=== PATIENT | female | born 1940 | race Caucasian/White ===

== ENCOUNTER 2018-10-09 12:17 | Outpatient (CLI) | payer MEDICARE, MEDICAID, SELFPAY ==
[2018-10-09 13:32] LABS: HCT 35.5 % (36.0-46.0); HGB 10.8 g/dL (12.0-15.5); Mean Corp. HGB Concentration 30.4 g/dL (32.0-36.0); Mean Corpuscular Hemoglobin 26.3 pg (27.0-33.0); Mean Corpuscular Volume 86.4 fL (80-95); Platelet Count 365 x1000/uL (130-400); RBC 4.11 m/cumm (4.00-5.20); RBC Distribution Width 13.9 % (11.7-14.6); White Blood Cell Count 6.82 k/cumm (4.4-10.8)
[2018-10-09 14:54] LABS: ALT 14 U/L (12-78); AST 10 U/L (15-37); Albumin 3.3 g/dL (3.4-5.0); Alkaline Phosphatase 109 U/L (46-116); Anion Gap 8.5 mmol/L (3-11); BUN 14 mg/dL (7-18); Bilirubin, Total 0.5 mg/dL (0.2-1.0); CO2 28.5 mmol/L (21.0-32.0); CREATININE 1.34 mg/dL (0.55-1.02); Calcium 8.3 mg/dL (8.5-10.1); Chloride 100 mmol/L (98-107); Estimated GFR 38.35 (mL/min/1.73m2); Glucose 97 mg/dL (70-100); Potassium 4.2 mmol/L (3.5-5.1); Sodium 137 mmol/L (136-145); TSH (W/Ref FT4) 0.67 uIU/mL (0.358-3.74); Total Protein 6.6 g/dL (6.4-8.2)
== END 2018-10-09 12:37 ==
PROVIDERS: PCP Family Medicine; Visit Provider Family Medicine
DX: E03.9 Hypothyroidism, unspecified (principal); R63.4 Abnormal weight loss
CPT/HCPCS: 80053; 85027; 84443

== ENCOUNTER 2018-10-11 16:14 | Observation (INO) | payer MEDICARE, OTHER, MEDICAID, SELFPAY ==
[2018-10-11 16:14] VITALS: PULSE 68; RESP 18; TEMP 36.8; O2SAT 98
[2018-10-11 16:29] VITALS: BP 164/92
--- NOTE | 2018-10-11 16:31 | DI.RAD_ITS ---
SYMPTOM/DIAGNOSIS: RT KNEE PAIN RIGHT KNEE: No fracture is identified. There are severe degenerative changes of the patello-femoral joint, with prominent periarticular spurring and severe joint space narrowing. There is a supra patellar effusion. The femoral tibial joints are well maintained and show mild periarticular spurring. There is soft tissue swelling seen anteriorly. IMPRESSION: Severe patello-femoral degenerative changes.
--- NOTE | 2018-10-11 16:32 | W.ED.GENAD ---
Discharge Plan Disposition Patient Disposition: [facility] INPATIENT Condition: Stable Discharge Details Chief Complaint: Orthopedic Clinical Impression: Palliative care patient, Dementia, Hypomagnesemia, Arthritis of knee, right Admit Date/Time: 10/11/18 18:46 Admit Provider: José Miguel Zazueta Attending Provider: José Miguel Zazueta Primary Care Provider: Mel Cantu ED Provider: Yan Benavidez Discharge Data Discharge Date/Time-TO BE ENTERED AT DEPARTURE: 10/11/18 19:31 Medical Decision Making 78-year-old female presents from home via EMS. She has fairly advanced dementia and recent discussions of placement. Her acts as her primary caregiver and historian today. He states that she has had a fairly dramatic decline over proxy 1 month. They have a two-story home and she lives on the main floor, sleeping in a recliner. She has had increasing falls and ambulance calls for lift assist. She has COLST form noting DNR/DNI. Today she had atraumatic right knee pain. states she has had intermittent arthralgias in the past. No recent fall, fever, cough. She did recently start mirtazapine at bedtime. She is afebrile and well-appearing. Medical work-up including screening examination, laboratory, x-ray of knee. The diagnostic studies reveal no significant change to CBC, creatinine slightly increased to 1.5. Calcium slightly low and magnesium 1.5. Urinalysis with trace leuk esterase, otherwise unremarkable. X-ray with marked joint space narrowing at the patellofemoral joint. Case reviewed and discussed with care management. Will admit as observation to medicine. Patient will benefit from magnesium supplementation and PT/OT evaluation for what is likely chronic right knee arthralgia. HPI General Mode of arrival: EMS. Date/Time Provider Initiated Documentation: 10/11/18 16:47. Limitations to Documentation: no limitations. Information obtained by: patient, family and EMS. History of Present Illness 78 year old F presents to the emergency department with the chief complaint of Dementia and right knee pain, described as moderate, Quality is described as dull and constant, and is localized to the right and lower extremity. Patient reports no radiation. Patient started experiencing this day(s) and it has been intermittent. Rest improves symptom(s), Movement worsens symptoms . Patient notes confusion. Patient did receive the following treatments prior to arrival, other (Tylenol) Related Data Home Medications Medication Instructions Recorded Confirmed Prilosec OTC 20 mg PO DAILY 08/29/13 10/11/18 acetaminophen [Mapap Extra 500 mg PO TID 06/27/17 10/11/18 Strength] levothyroxine 50 mcg tablet 88 mcg PO DAILY tab 02/06/18 10/11/18 citalopram 20 mg tablet 20 mg PO DAILY #90 tab-cap 03/29/18 10/11/18 mirtazapine 7.5 mg tablet 7.5 mg PO QHS #90 tab 10/09/18 10/11/18 Previous Rx's Medication Instructions Recorded citalopram 20 mg tablet 20 mg PO DAILY #90 tab-cap 03/29/18 mirtazapine 7.5 mg tablet 7.5 mg PO QHS #90 tab 10/09/18 Allergies Allergy/AdvReac Type Severity Reaction Status Date / Time codeine Allergy Unknown Unverified 10/27/17 11:20 lisinopril Allergy Unknown Unverified 10/27/17 11:20 NSAIDS (Non-Steroidal Allergy Unknown Unverified 10/27/17 11:20 Anti-Inflamma sertraline Allergy Unknown Unverified 10/27/17 11:20 simvastatin AdvReac Unknown Unverified 10/27/17 11:20 hydrocodone-acetominophen AdvReac Unknown Uncoded 10/27/17 11:20 General Stated Complaint: Orthopedic MANOJ: 4 Review of Systems Review of Systems Unobtainable due to mental status [facility] Surgical History Arthroplasty (08/17/14) Cholecystectomy Colectomy (11/28/01) Lobectomy (04/06/09) colonoscopy (02/18/08) colonoscopy (10/03/12) colonoscopy (10/07/13) egd with dilitation (05/18/11) thyroid nodule biopsy (10/07/13) Social History Smoking/Tobacco Use Status: Former Tobacco Use Drug use: Never Substance use type: does not use Household members: spouse Housing: house Do you feel safe in your relationship?: Yes Exam Narrative Exam Narrative: GEN: awake, alert, interactive. Pleasant, well groomed, interactive. HEAD: Normocephalic, atraumatic ENT: Mucous membranes moist, oropharynx unremarkable, External ear exam unremarkable EYES: PERRL, EOMI NECK: Full ROM, no DANIELITO, no menigismus CHEST/RESP: Nontender, clear to auscultation bilateral, no wheeze/rhonchi/rales CARDIOVASCULAR: RRR, no murmur, rub devon. 2+ Rad pulse bilateral ABDOMEN: Soft, nontender, no mass. +Bowel sounds EXT: Full ROM, no edema, no rash. Range of motion on the right is somewhat limited by pain. She has pain with active and passive right knee flexion. It is not warm or erythematous, no asymmetry. Back exam: No tenderness, step-off, deformity Neuro: Grossly normal neurologic exam, conversant, interactive. She is not oriented to person or place Psych: Speech fluent, thoughts tangential and somewhat bizarre at times, affect normal Course Vital Signs Temperature 36.8 C 10/11/18 16:14 Pulse 68 10/11/18 16:14 Respiratory Rate 18 10/11/18 16:14 Pulse Oximetry 98 10/11/18 16:14 Temperature 36.8 C 10/11/18 16:14 Temperature Source Temporal Artery Scan 10/11/18 16:14 Pulse 68 10/11/18 16:14 Respiratory Rate 18 10/11/18 16:14 Respiratory Effort Non-Labored 10/11/18 16:21 Blood Pressure 164/92 H 10/11/18 16:29 Pulse Oximetry 98 10/11/18 16:14 Oxygen Delivery Method Room Air 10/11/18 16:14 Oxygen Flow Rate 0 10/11/18 16:14
--- NOTE | 2018-10-11 16:36 | ED.GENADUL_ITS ---
Discharge Plan Disposition Patient Disposition: [facility] INPATIENT Condition: Stable Discharge Details Chief Complaint: Orthopedic Clinical Impression: Palliative care patient, Dementia, Hypomagnesemia, Arthritis of knee, right Admit Date/Time: 10/11/18 18:46 Admit Provider: José Miguel Zazueta Attending Provider: José Miguel Zazueta Primary Care Provider: Mel Cantu ED Provider: Yan Benavidez Discharge Data Discharge Date/Time-TO BE ENTERED AT DEPARTURE: 10/11/18 19:31 Medical Decision Making 78-year-old female presents from home via EMS. She has fairly advanced dementia and recent discussions of placement. Her acts as her primary caregiver and historian today. He states that she has had a fairly dramatic decline over proxy 1 month. They have a two-story home and she lives on the main floor, sleeping in a recliner. She has had increasing falls and ambulance calls for lift assist. She has COLST form noting DNR/DNI. Today she had atraumatic right knee pain. states she has had intermittent arthralgias in the past. No recent fall, fever, cough. She did recently start mirtazapine at bedtime. She is afebrile and well-appearing. Medical work-up including screening examination, laboratory, x-ray of knee. The diagnostic studies reveal no significant change to CBC, creatinine slightly increased to 1.5. Calcium slightly low and magnesium 1.5. Urinalysis with trace leuk esterase, otherwise unremarkable. X-ray with marked joint space narrowing at the patellofemoral joint. Case reviewed and discussed with care management. Will admit as observation to medicine. Patient will benefit from magnesium supplementation and PT/OT evaluation for what is likely chronic right knee arthralgia. HPI General Mode of arrival: EMS . Date/Time Provider Initiated Documentation: 10/11/18 16:47 . Limitations to Documentation: no limitations . Information obtained by: patient, family and EMS . History of Present Illness 78 year old F presents to the emergency department with the chief complaint of Dementia and right knee pain, described as moderate, Quality is described as dull and constant, and is localized to the right and lower extremity. Patient reports no radiation. Patient started experiencing this day(s) and it has been intermittent. Rest improves symptom(s), Movement worsens symptoms . Patient notes confusion. Patient did receive the following treatments prior to arrival, other (Tylenol) Related Data Home Medications Medication Instructions Recorded Confirmed Prilosec OTC 20 mg PO DAILY 08/29/13 10/11/18 acetaminophen [Mapap Extra 500 mg PO TID 06/27/17 10/11/18 Strength] levothyroxine 50 mcg tablet 88 mcg PO DAILY tab 02/06/18 10/11/18 citalopram 20 mg tablet 20 mg PO DAILY #90 tab-cap 03/29/18 10/11/18 mirtazapine 7.5 mg tablet 7.5 mg PO QHS #90 tab 10/09/18 10/11/18 Previous Rx's Medication Instructions Recorded citalopram 20 mg tablet 20 mg PO DAILY #90 tab-cap 03/29/18 mirtazapine 7.5 mg tablet 7.5 mg PO QHS #90 tab 10/09/18 Allergies Allergy/AdvReac Type Severity Reaction Status Date / Time codeine Allergy Unknown Unverified 10/27/17 11:20 lisinopril Allergy Unknown Unverified 10/27/17 11:20 NSAIDS (Non-Steroidal Allergy Unknown Unverified 10/27/17 11:20 Anti-Inflamma sertraline Allergy Unknown Unverified 10/27/17 11:20 simvastatin AdvReac Unknown Unverified 10/27/17 11:20 hydrocodone-acetominophen AdvReac Unknown Uncoded 10/27/17 11:20 General Stated Complaint: Orthopedic MANOJ: 4 Review of Systems Review of Systems Unobtainable due to mental status [facility] Surgical History Arthroplasty (08/17/14) Cholecystectomy Colectomy (11/28/01) Lobectomy (04/06/09) colonoscopy (02/18/08) colonoscopy (10/03/12) colonoscopy (10/07/13) egd with dilitation (05/18/11) thyroid nodule biopsy (10/07/13) Social History Smoking/Tobacco Use Status: Former Tobacco Use Drug use: Never Substance use type: does not use Household members: spouse Housing: house Do you feel safe in your relationship?: Yes Exam Narrative Exam Narrative: GEN: awake, alert, interactive. Pleasant, well groomed, interactive. HEAD: Normocephalic, atraumatic ENT: Mucous membranes moist, oropharynx unremarkable, External ear exam unremarkable EYES: PERRL, EOMI NECK: Full ROM, no DANIELITO, no menigismus CHEST/RESP: Nontender, clear to auscultation bilateral, no wheeze/rhonchi/rales CARDIOVASCULAR: RRR, no murmur, rub devon. 2+ Rad pulse bilateral ABDOMEN: Soft, nontender, no mass. +Bowel sounds EXT: Full ROM, no edema, no rash. Range of motion on the right is somewhat limited by pain. She has pain with active and passive right knee flexion. It is not warm or erythematous, no asymmetry. Back exam: No tenderness, step-off, deformity Neuro: Grossly normal neurologic exam, conversant, interactive. She is not oriented to person or place Psych: Speech fluent, thoughts tangential and somewhat bizarre at times, affect normal Course Vital Signs Temperature 36.8 C 10/11/18 16:14 Pulse 68 10/11/18 16:14 Respiratory Rate 18 10/11/18 16:14 Pulse Oximetry 98 10/11/18 16:14 Temperature 36.8 C 10/11/18 16:14 Temperature Source Temporal Artery Scan 10/11/18 16:14 Pulse 68 10/11/18 16:14 Respiratory Rate 18 10/11/18 16:14 Respiratory Effort Non-Labored 10/11/18 16:21 Blood Pressure 164/92 H 10/11/18 16:29 Pulse Oximetry 98 10/11/18 16:14 Oxygen Delivery Method Room Air 10/11/18 16:14 Oxygen Flow Rate 0 10/11/18 16:14
[2018-10-11] MEDS: Acetaminophen 500 MG TAB 1000 MG PO (17:06)
[2018-10-11 17:07] LABS: Abs Immature Grans 0.01 k/cumm (0.0-0.09); Absolute Basophil Count 0.05 k/cumm (0.0-0.2); Absolute Eosinophil Count 0.12 k/cumm (0.0-0.7); Absolute Lymphocyte Count 0.99 k/cumm (1.2-3.4); Absolute Monocyte Count 0.59 k/cumm (0.11-0.7); Absolute Neutrophil Count 6.64 k/cumm (1.2-6.7); Basophils % 0.6; Eosinophils % 1.4; HCT 35.3 % (36.0-46.0); HGB 11.1 g/dL (12.0-15.5); Immature Grans % 0.1; Lymphocytes % 11.8; Mean Corp. HGB Concentration 31.4 g/dL (32.0-36.0); Mean Corpuscular Hemoglobin 27.1 pg (27.0-33.0); Mean Corpuscular Volume 86.1 fL (80-95); Mean Platelet Volume 9.6 fL (8.0-11.0); Neutrophils % 79.1; Platelet Count 375 x1000/uL (130-400); RBC Distribution Width 13.7 % (11.7-14.6)
[2018-10-11 17:20] LABS: ALT 13 U/L (12-78); AST 10 U/L (15-37); Alkaline Phosphatase 108 U/L (46-116); Anion Gap 7.4 mmol/L (3-11); BUN 12 mg/dL (7-18); Bilirubin, Total 0.6 mg/dL (0.2-1.0); CO2 29.6 mmol/L (21.0-32.0); CREATININE 1.52 mg/dL (0.55-1.02); Calcium 7.9 mg/dL (8.5-10.1); Chloride 99 mmol/L (98-107); Estimated GFR 33.16 (mL/min/1.73m2); Glucose 109 mg/dL (70-100); Magnesium 1.5 mg/dL (1.8-2.4); Potassium 3.6 mmol/L (3.5-5.1); Sodium 136 mmol/L (136-145); Total Protein 6.8 g/dL (6.4-8.2)
[2018-10-11 17:26] LABS: Bilirubin Negative (Negative); Blood Negative (Negative); Clarity Clear; Glucose Negative (Negative); Ketones Negative (Negative); Leukocyte Esterase Trace (Negative); Nitrite Negative (Negative); Urobilinogen 0.2 EU/dL (Up TO 0.2)
[2018-10-11 17:32] LABS: Bacteria Rare HPF (Negative); Crystals Negative HPF (Negative); Epithelial Cells Rare HPF (Negative); Other Cells Negative (Negative); RBC 0-2 (0-2); WBC 0-2 HPF (0-5)
[2018-10-11 17:33] LABS: C & S Indicated? No; Casts Negative LPF (Negative); Mucus Negative (Negative)
--- NOTE | 2018-10-11 17:35 | DI.VRAD_ITS ---
EXAM: XR Right Knee EXAM DATE/TIME: 10/11/2018 4:32 PM CLINICAL HISTORY: 78 years old, female; Right; Patient HX: R knee pain TECHNIQUE: Imaging protocol: XR Right knee. Views: 4 or more views. COMPARISON: No relevant prior studies available. FINDINGS: Bones/joints: Marked joint space narrowing in the patellofemoral joint. Essentially [id number]. Osteophyte formation in the superior pole of the patella Osteophyte formation in the intercondylar eminence Soft tissues: Soft tissue swelling over the anterior aspect of the knee. IMPRESSION: 1. Marked joint space narrowing in the patellofemoral joint. Essentially [id number]. 2. Soft tissue swelling over the anterior aspect of the knee. Dictated and Authenticated by: Daisy Jacobson MD. Ordering:SULTANA Heredia MD
[2018-10-11] MEDS: MAGNESIUM SULFATE 1 GM/100 ML BAG IVPB (17:37)
--- NOTE | 2018-10-11 18:35 | W.PM.HP.N ---
Date of service: 10/11/18 Time of Service: 18:35 Assessment and Plan (1) Dementia: Current visit: Yes Status: Chronic Advancing dementia, will need intermediate manager placement. Chronic knee pain secondary to DJD, will give prn APAP and consult PT to asssist with ambulation. History of Present Illness Chief Complaint: inability to manage at home Narrative: 78 female with advancing dementia. Here with increasing falls at home, and husban'ds inability to manage. Patient did complain of knee pain, film showDJD, no fracture; magnesimu 1.5 noted, geting replacemnt. Admitted for further management and possible skilled nursing placement. Patient has no complaints at this time. Review of Systems Review of Systems Unobtainable due to mental condition [facility] Surgical History Arthroplasty (08/17/14) Cholecystectomy Colectomy (11/28/01) Lobectomy (04/06/09) colonoscopy (02/18/08) colonoscopy (10/03/12) colonoscopy (10/07/13) egd with dilitation (05/18/11) thyroid nodule biopsy (10/07/13) Social History Smoking/Tobacco Use Status: Former Tobacco Use Drug use: Never Substance use type: does not use Household members: spouse Housing: house Do you feel safe in your relationship?: Yes Meds Home Medications Medication Instructions Recorded Confirmed Type Prilosec OTC 20 mg PO DAILY 08/29/13 10/09/18 History acetaminophen [Mapap Extra 500 mg PO TID 06/27/17 10/09/18 History Strength] levothyroxine 50 mcg tablet 88 mcg PO DAILY tab 02/06/18 10/09/18 History citalopram 20 mg tablet 20 mg PO DAILY #90 tab-cap 03/29/18 10/09/18 Rx mirtazapine 7.5 mg tablet 7.5 mg PO QHS #90 tab 10/09/18 10/09/18 Rx Allergies Allergy/AdvReac Type Severity Reaction Status Date / Time codeine Allergy Unknown Unverified 10/27/17 11:20 lisinopril Allergy Unknown Unverified 10/27/17 11:20 NSAIDS (Non-Steroidal Allergy Unknown Unverified 10/27/17 11:20 Anti-Inflamma sertraline Allergy Unknown Unverified 10/27/17 11:20 simvastatin AdvReac Unknown Unverified 10/27/17 11:20 hydrocodone-acetominophen AdvReac Unknown Uncoded 10/27/17 11:20 Exam Narrative Exam Narrative: 164/92, 68, 18, 36.8. HEENT atraumatic, neck supple, lungs clear, heart RRR, abdomen soft nt, pelvic/rectal deferred, extr trace pedal edema; neuro: oriented x1, moves all 4s Results Labs : 10/11/18 16:58 10/11/18 16:58 Laboratory Results - last 24 hr 10/11/18 10/11/18 10/11/18 16:58 16:58 17:15 WBC 8.40 RBC 4.10 Hgb 11.1 L Hct 35.3 L MCV 86.1 MCH 27.1 MCHC 31.4 L RDW 13.7 Plt Count 375 MPV 9.6 Immature Gran % 0.1 Neutrophils % 79.1 Lymphocytes % 11.8 Monocytes % 7.0 Eosinophils % 1.4 Basophils % 0.6 Absolute Neutrophils 6.64 Absolute Lymphocytes 0.99 L Absolute Monocytes 0.59 Absolute Eosinophils 0.12 Absolute Basophils 0.05 Sodium 136 Potassium 3.6 Chloride 99 Carbon Dioxide 29.6 Anion Gap 7.4 BUN 12 Creatinine 1.52 H Estimated GFR/1.73 m2 33.16 Glucose 109 H Calcium 7.9 L Magnesium 1.5 L Total Bilirubin 0.6 AST 10 L ALT 13 Alkaline Phosphatase 108 Total Protein 6.8 Albumin 3.0 L Urine Color Yellow Urine Clarity Clear Urine pH 7.0 Ur Specific [place] 1.010 Urine Protein Negative Urine Ketones Negative Urine Blood Negative Urine Nitrite Negative Urine Bilirubin Negative Urine Urobilinogen 0.2 Ur Leukocyte Esterase Trace H Urine RBC 0-2 Urine WBC 0-2 Ur Epithelial Cells Rare Urine Crystals Negative Urine Bacteria Rare Urine Casts Negative Urine Mucus Negative Urine Other Negative Ur Culture Indicated? No Urine Glucose Negative Last Vital Signs Temp 36.8 C 10/11/18 16:14 Pulse 68 10/11/18 16:14 Resp 18 10/11/18 16:14 BP 164/92 H 10/11/18 16:29 Pulse Ox 98 10/11/18 16:14
--- NOTE | 2018-10-11 18:45 | HPE_ITS ---
Date of service: 10/11/18 Time of Service: 18:35 Assessment and Plan (1) Dementia: Current visit: Yes Status: Chronic Advancing dementia, will need terminal clerk placement. Chronic knee pain secondary to DJD, will give prn APAP and consult PT to asssist with ambulation. History of Present Illness Chief Complaint: inability to manage at home Narrative: 78 female with advancing dementia. Here with increasing falls at home, and husban'ds inability to manage. Patient did complain of knee pain, film showDJD, no fracture; magnesimu 1.5 noted, geting replacemnt. Admitted for further management and possible skilled nursing placement. Patient has no complaints at this time. Review of Systems Review of Systems Unobtainable due to mental condition [facility] Surgical History Arthroplasty (08/17/14) Cholecystectomy Colectomy (11/28/01) Lobectomy (04/06/09) colonoscopy (02/18/08) colonoscopy (10/03/12) colonoscopy (10/07/13) egd with dilitation (05/18/11) thyroid nodule biopsy (10/07/13) Social History Smoking/Tobacco Use Status: Former Tobacco Use Drug use: Never Substance use type: does not use Household members: spouse Housing: house Do you feel safe in your relationship?: Yes Meds Home Medications Medication Instructions Recorded Confirmed Type Prilosec OTC 20 mg PO DAILY 08/29/13 10/09/18 History acetaminophen [Mapap Extra 500 mg PO TID 06/27/17 10/09/18 History Strength] levothyroxine 50 mcg tablet 88 mcg PO DAILY tab 02/06/18 10/09/18 History citalopram 20 mg tablet 20 mg PO DAILY #90 tab-cap 03/29/18 10/09/18 Rx mirtazapine 7.5 mg tablet 7.5 mg PO QHS #90 tab 10/09/18 10/09/18 Rx Allergies Allergy/AdvReac Type Severity Reaction Status Date / Time codeine Allergy Unknown Unverified 10/27/17 11:20 lisinopril Allergy Unknown Unverified 10/27/17 11:20 NSAIDS (Non-Steroidal Allergy Unknown Unverified 10/27/17 11:20 Anti-Inflamma sertraline Allergy Unknown Unverified 10/27/17 11:20 simvastatin AdvReac Unknown Unverified 10/27/17 11:20 hydrocodone-acetominophen AdvReac Unknown Uncoded 10/27/17 11:20 Exam Narrative Exam Narrative: 164/92, 68, 18, 36.8. HEENT atraumatic, neck supple, lungs clear, heart RRR, abdomen soft nt, pelvic/rectal deferred, extr trace pedal edema; neuro: oriented x1, moves all 4s Results Labs : 10/11/18 16:58 10/11/18 16:58 Laboratory Results - last 24 hr 10/11/18 10/11/18 10/11/18 16:58 16:58 17:15 WBC 8.40 RBC 4.10 Hgb 11.1 L Hct 35.3 L MCV 86.1 MCH 27.1 MCHC 31.4 L RDW 13.7 Plt Count 375 MPV 9.6 Immature Gran % 0.1 Neutrophils % 79.1 Lymphocytes % 11.8 Monocytes % 7.0 Eosinophils % 1.4 Basophils % 0.6 Absolute Neutrophils 6.64 Absolute Lymphocytes 0.99 L Absolute Monocytes 0.59 Absolute Eosinophils 0.12 Absolute Basophils 0.05 Sodium 136 Potassium 3.6 Chloride 99 Carbon Dioxide 29.6 Anion Gap 7.4 BUN 12 Creatinine 1.52 H Estimated GFR/1.73 m2 33.16 Glucose 109 H Calcium 7.9 L Magnesium 1.5 L Total Bilirubin 0.6 AST 10 L ALT 13 Alkaline Phosphatase 108 Total Protein 6.8 Albumin 3.0 L Urine Color Yellow Urine Clarity Clear Urine pH 7.0 Ur Specific [place] 1.010 Urine Protein Negative Urine Ketones Negative Urine Blood Negative Urine Nitrite Negative Urine Bilirubin Negative Urine Urobilinogen 0.2 Ur Leukocyte Esterase Trace H Urine RBC 0-2 Urine WBC 0-2 Ur Epithelial Cells Rare Urine Crystals Negative Urine Bacteria Rare Urine Casts Negative Urine Mucus Negative Urine Other Negative Ur Culture Indicated? No Urine Glucose Negative Last Vital Signs Temp 36.8 C 10/11/18 16:14 Pulse 68 10/11/18 16:14 Resp 18 10/11/18 16:14 BP 164/92 H 10/11/18 16:29 Pulse Ox 98 10/11/18 16:14
--- NOTE | 2018-10-11 19:21 | NUR.NOTE ---
Nursing Note:report given to ann
[2018-10-11 19:56] VITALS: BP 134/82; PULSE 69; RESP 16; TEMP 35.6; O2SAT 98
[2018-10-11 19:57] VITALS: BP 134/82; PULSE 69; RESP 16; TEMP 35.6; O2SAT 98
[2018-10-12] MEDS: Levothyroxine 50 MCG TAB 88 MCG PO (06:48)
[2018-10-12 07:37] VITALS: BP 155/82; PULSE 82; RESP 17; TEMP 36.4; O2SAT 98
[2018-10-12] MEDS: Acetaminophen 325 MG TAB 650 MG PO (09:25)
[2018-10-12] MEDS: Omeprazole 20 MG CAPCR PO (09:26)
[2018-10-12] MEDS: Citalopram 20 MG TAB PO (09:26)
[2018-10-12] MEDS: MAGNESIUM SULFATE 2 GM/50 ML BAG IVPB (13:17)
[2018-10-12] MEDS: Normal Saline 1,000 ML 75 ML IV (13:17)
--- NOTE | 2018-10-12 13:36 | PT.INIE ---
Date of service: 10/12/18 Time of Service: 10:15 PT Notes Inpatient Physical Therapy Evaluation Date: 10/12/2018 Referring Doctor: José Miguel Zazueta MD PT Orders: PT CONSULT: Ambulation, eval/treat Precautions: Standard/fall risk Patient Profile/Admitting Diagnosis: 78-year-old female with progressive dementia, with development of atraumatic right knee pain, requiring EMS transferred to ER on 10/11/2018 due to 's inability to assist her. Recent history of increased falls and multiple joint arthralgias. PMHX: Surgical History Arthroplasty (08/17/14) Cholecystectomy Colectomy (11/28/01) Lobectomy (04/06/09) colonoscopy (02/18/08) colonoscopy (10/03/12) colonoscopy (10/07/13) egd with dilitation (05/18/11) thyroid nodule biopsy (10/07/13) Per report, arthritis, progressive dementia. Obese. Social History/Home Situation: Lives in a private home with her , who is her main farm or ranch animal caretaker. He is now feeling overwhelmed and considering placement. Current Functional Limitations: Requires close supervision to contact-guard with functional ambulation and sit to stand transfers, needs constant reminders to utilize assistive device, and safe performance of all functional movements and transfers. Equipment Owned/DME: Walker and cane, has been admits that she is not good about using either due to her dementia. Subjective: Complains of right knee pain, but unable to understand the VAS so cannot rate this. reports that her falls are increasing, she is been sleeping on the main floor of her home in recliner for the past week, due to her choice, not necessarily due to her inability to descend the stairs. However since she is not been going up and down the stairs at their home, he is noted physical decline in her condition and increase in knee pain. Falls are occurring when she is attempting to get out of bed on her own, or when ambulating on uneven terrain in their yard. Objective: [] General Observation: Obese, looks older than stated age, sitting in recliner chair with legs elevated, ice on the right knee. Mental Status: Alert, oriented to person, confused by day and place. Easily confused. Pain: Right knee, patient unable to rate. Vital Signs: BP 155/82, 90% O2 on room air, 82 HR ROM: Right Upper Extremity: Grossly WNL Left Upper Extremity: Grossly WNL Right Lower Extremity: Right knee limited to 0 to 90 degrees limited by pain, otherwise grossly WNL Left Lower Extremity: Grossly WNL Strength: Right Upper Extremity: Grossly 4/5 Left Upper Extremity: Grossly 4/5 Right Lower Extremity: Hip flexion 3/5, knee flexion/extension 3+/5 with pain, DF 4/5 with pain, PF 4/5 Left Lower Extremity: Hip flexion 3/5, knee flexion/extension 4+/5, DF 4/5 no pain, PF 4/5 Sensation: Not assessed Bed Mobility/Transfers: Contact-guard x2 sit to stand at walker Contact-guard x2 sit to stand, and vice versa to toilet Gait: Contact-guard x2, RW, verbal cues required throughout for proper use of walker and to remember to use walker. Antalgic, with decreased stance R knee Balance: [] Static Sitting: Good Dynamic Sitting: Fair Static Standing: Poor Dynamic Standing: Poor Special Tests: Mobility Limitations Standardized Measure [facility] 6 clicks Basic Mobility Inpatient Short Form: Raw Score: [] Standardized Score: [] CMS Score: 57% disability CMS Modifier: [] Informed Consent/Education: Patient instructed in purpose of PT consult and plan of care. Assessment: Patient is a 78 year old female referred to physical therapy services with the diagnosis of R knee pain and subsequent gait deficits. Patient presents with clinical signs and symptoms consistent with progressive dementia and right knee OA exacerbation. It would not be unreasonable for orthopedic consultation of the right knee, in the event that injection may be appropriate, or other recommendations for pain control, in the setting that her symptoms do not resolve with time. Impairment level findings: Global weakness, but particularly of the right knee, mobility deficits of the right knee, gait antalgia, poor balance, and poor body awareness due to her dementia confusion. Impairments are contributing to the following functional limitations: AMPAC score of 50% disability, unsteady gait, pain with weightbearing, requires assist with transfers and ambulation, high risk of falls. Patient is assessed as a [] Low 14157 x Moderate 77061 [] High 27086 complexity based on the following: History: See comorbidities, progressive dementia Examination: See above impairments and functional limitations Presentation: Evolving Decision Making: Moderate, see [facility] above. Goals: Goals X1 week 1. Supine-Sit close supervision 2. Sit-Supine close supervision 3. Sit-Stand contact-guard 1, walker 4. Stand-Sit contact-guard 1, walker 5. Bed-Chair contact-guard 1, walker 6. Chair-Bed contact-guard 1, walker 7. Gait contact-guard 1, walker, with less reminders to use walker appropriately Plan of Care/Treatment Plan: 1-2x/day, 7 days/week x 1 week. Plan of care has been reviewed with the MACHINE ENGRAVER providing the service under Physical Therapy direction. Initiate Physical Therapy intervention for strengthening, bed mobility, transfers, gait, stairs, balance training, use of assistive device. DISCHARGE RECOMMENDATIONS: Agree that patient is now appropriate for long-term placement, due to her high fall risk, but most importantly because of her progressive dementia, as her is not able to safely or effectively care for her. TREATMENT CODE/TIME: 30 minutes, [id number] Sally Jackson, MPT
--- NOTE | 2018-10-12 13:39 | IN_ITS ---
Date of service: 10/12/18 Time of Service: 10:15 PT Notes Inpatient Physical Therapy Evaluation Date: 10/12/2018 Referring Doctor: José Miguel Zazueta MD PT Orders: PT CONSULT: Ambulation, eval/treat Precautions: Standard/fall risk Patient Profile/Admitting Diagnosis: 78-year-old female with progressive dementia, with development of atraumatic right knee pain, requiring EMS transferred to ER on 10/11/2018 due to 's inability to assist her. Recent history of increased falls and multiple joint arthralgias. PMHX: Surgical History Arthroplasty (08/17/14) Cholecystectomy Colectomy (11/28/01) Lobectomy (04/06/09) colonoscopy (02/18/08) colonoscopy (10/03/12) colonoscopy (10/07/13) egd with dilitation (05/18/11) thyroid nodule biopsy (10/07/13) Per report, arthritis, progressive dementia. Obese. Social History/Home Situation: Lives in a private home with her , who is her main wind projects supervisor. He is now feeling overwhelmed and considering placement. Current Functional Limitations: Requires close supervision to contact-guard with functional ambulation and sit to stand transfers, needs constant reminders to utilize assistive device, and safe performance of all functional movements and transfers. Equipment Owned/DME: Walker and cane, has been admits that she is not good about using either due to her dementia. Subjective: Complains of right knee pain, but unable to understand the VAS so cannot rate this. reports that her falls are increasing, she is been sleeping on the main floor of her home in recliner for the past week, due to her choice, not necessarily due to her inability to descend the stairs. However since she is not been going up and down the stairs at their home, he is noted physical decline in her condition and increase in knee pain. Falls are occurring when she is attempting to get out of bed on her own, or when ambulating on uneven terrain in their yard. Objective: [] General Observation: Obese, looks older than stated age, sitting in recliner chair with legs elevated, ice on the right knee. Mental Status: Alert, oriented to person, confused by day and place. Easily confused. Pain: Right knee, patient unable to rate. Vital Signs: BP 155/82, 90% O2 on room air, 82 HR ROM: Right Upper Extremity: Grossly WNL Left Upper Extremity: Grossly WNL Right Lower Extremity: Right knee limited to 0 to 90 degrees limited by pain, otherwise grossly WNL Left Lower Extremity: Grossly WNL Strength: Right Upper Extremity: Grossly 4/5 Left Upper Extremity: Grossly 4/5 Right Lower Extremity: Hip flexion 3/5, knee flexion/extension 3+/5 with pain, DF 4/5 with pain, PF 4/5 Left Lower Extremity: Hip flexion 3/5, knee flexion/extension 4+/5, DF 4/5 no pain, PF 4/5 Sensation: Not assessed Bed Mobility/Transfers: Contact-guard x2 sit to stand at walker Contact-guard x2 sit to stand, and vice versa to toilet Gait: Contact-guard x2, RW, verbal cues required throughout for proper use of walker and to remember to use walker. Antalgic, with decreased stance R knee Balance: [] Static Sitting: Good Dynamic Sitting: Fair Static Standing: Poor Dynamic Standing: Poor Special Tests: Mobility Limitations Standardized Measure [facility] 6 clicks Basic Mobility Inpatient Short Form: Raw Score: [] Standardized Score: [] CMS Score: 57% disability CMS Modifier: [] Informed Consent/Education: Patient instructed in purpose of PT consult and plan of care. Assessment: Patient is a 78 year old female referred to physical therapy services with the diagnosis of R knee pain and subsequent gait deficits. Patient presents with clinical signs and symptoms consistent with progressive dementia and right knee OA exacerbation. It would not be unreasonable for orthopedic consultation of the right knee, in the event that injection may be appropriate, or other recommendations for pain control, in the setting that her symptoms do not resolve with time. Impairment level findings: Global weakness, but particularly of the right knee, mobility deficits of the right knee, gait antalgia, poor balance, and poor body awareness due to her dementia confusion. Impairments are contributing to the following functional limitations: AMPAC score of 50% disability, unsteady gait, pain with weightbearing, requires assist with transfers and ambulation, high risk of falls. Patient is assessed as a [] Low 44764 x Moderate 36356 [] High 04456 complexity based on the following: History: See comorbidities, progressive dementia Examination: See above impairments and functional limitations Presentation: Evolving Decision Making: Moderate, see [facility] above. Goals: Goals X1 week 1. Supine-Sit close supervision 2. Sit-Supine close supervision 3. Sit-Stand contact-guard 1, walker 4. Stand-Sit contact-guard 1, walker 5. Bed-Chair contact-guard 1, walker 6. Chair-Bed contact-guard 1, walker 7. Gait contact-guard 1, walker, with less reminders to use walker appropriately Plan of Care/Treatment Plan: 1-2x/day, 7 days/week x 1 week. Plan of care has been reviewed with the BUSINESS ADMINISTRATOR providing the service under Physical Therapy direction. Initiate Physical Therapy intervention for strengthening, bed mobility, transfers, gait, stairs, balance training, use of assistive device. DISCHARGE RECOMMENDATIONS: Agree that patient is now appropriate for long-term placement, due to her high fall risk, but most importantly because of her progressive dementia, as her is not able to safely or effectively care for her. TREATMENT CODE/TIME: 30 minutes, [id number] Sally Jackson, MPT
[2018-10-12 15:19] VITALS: BP 152/82; PULSE 75; RESP 18; TEMP 36.3; O2SAT 98
--- NOTE | 2018-10-12 16:50 | PGE_ITS ---
Date of Service Date of service: 10/12/18 Time of Service: 16:45 Assessment and Plan (1) Dementia: Current visit: No Status: Chronic Monitor behaviors. On mirtazapine - may have to increase. (2) Sensorineural hearing loss, bilateral: Current visit: No Status: Acute f/u as outpatient (3) Hypomagnesemia: Current visit: Yes Status: Acute repleted - recheck in am (4) Dehydration: Current visit: Yes Status: Acute patient is unable to tolerate an IV in - pulls them out. Encourage PO fluids. (5) DVT prophylaxis: Current visit: Yes Status: Acute Start heparin SC (6) Discharge planning issues: Current visit: Yes Status: Acute DNR/DNI Will need placement Subjective Interval history since last seen: Ms Antony has been very confused. She is walking around the hallways. She cannot tell me if she is in pain, she keeps looking for someone, but does not know who. It is very difficult to get her to answer my questions. Exam Narrative Exam Narrative: General: obese elderly female, A&Ox1, disoriented, anxious HEENT: EOMI, MMM Heart: not auscultated Lungs: nonlabored breathing, not auscultated GI: abdomen not visibly distended Extremities: 5/5 strength throughout, able to ambulate unassisted. Objective Objective Clinical Data: Abnormal lab results 10/11/18 10/11/18 10/11/18 Range/Units 16:58 16:58 17:15 Hgb 11.1 L (12.0-15.5) g/dL Hct 35.3 L (36.0-46.0) % MCHC 31.4 L (32.0-36.0) g/dL Absolute Lymphocytes 0.99 L (1.2-3.4) k/cumm Creatinine 1.52 H (0.55-1.02) mg/dL Glucose 109 H (70-100) mg/dL Calcium 7.9 L (8.5-10.1) mg/dL Magnesium 1.5 L (1.8-2.4) mg/dL AST 10 L (15-37) U/L Albumin 3.0 L (3.4-5.0) g/dL Ur Leukocyte Esterase Trace H (Negative) Vital Signs Temperature 36.3 C L 10/12/18 15:19 Temperature Source Tympanic 10/12/18 15:19 Pulse 75 10/12/18 15:19 Pulse Rhythm Regular 10/12/18 09:00 Respiratory Rate 18 10/12/18 15:19 Respiratory Effort Non-Labored 10/12/18 09:00 Respiratory Depth Normal 10/12/18 09:00 Respiratory Pattern Normal 10/12/18 09:00 Blood Pressure 152/82 H 10/12/18 15:19 Pulse Oximetry 98 10/12/18 15:19 Oxygen Delivery Method Room Air 10/12/18 15:19 Oxygen Flow Rate 0 10/12/18 15:19 Pain Level 3 10/11/18 19:57 Intake & Output 10/11/18 10/12/18 10/12/18 23:59 11:59 23:59 Intake Total 100 / 100 340 / 1268.333 928.333 / 1268.333 Output Total 500 / 500 1000 / 1350 350 / 1350 Balance -400 / -400 -660 / -81.667 578.333 / -81.667 Weight 77.111 kg Intake: IV 100 / 100 188.333 / 188.333 Oral 340 / 1080 740 / 1080 Output: Urine 500 / 500 1000 / 1350 350 / 1350 Other: Urine Color Yellow Yellow Yellow Urine Appearance Clear Clear Clear Urine Odor None None Normal Stool Size Moderate Stool Characteristics Soft Formed Brown Voiding Methods Bedside Commode Bedside Commode Toilet Laboratory Results WBC 8.40 k/cumm (4.4-10.8) 10/11/18 16:58 RBC 4.10 m/cumm (4.00-5.20) 10/11/18 16:58 Hgb 11.1 g/dL (12.0-15.5) L 10/11/18 16:58 Hct 35.3 % (36.0-46.0) L 10/11/18 16:58 MCV 86.1 fL (80-95) 10/11/18 16:58 MCH 27.1 pg (27.0-33.0) 10/11/18 16:58 MCHC 31.4 g/dL (32.0-36.0) L 10/11/18 16:58 RDW 13.7 % (11.7-14.6) 10/11/18 16:58 Plt Count 375 x1000/uL (130-400) 10/11/18 16:58 MPV 9.6 fL (8.0-11.0) 10/11/18 16:58 Immature Gran % 0.1 10/11/18 16:58 Neutrophils % 79.1 10/11/18 16:58 Lymphocytes % 11.8 10/11/18 16:58 Monocytes % 7.0 10/11/18 16:58 Eosinophils % 1.4 10/11/18 16:58 Basophils % 0.6 10/11/18 16:58 Absolute Neutrophils 6.64 k/cumm (1.2-6.7) 10/11/18 16:58 Absolute Lymphocytes 0.99 k/cumm (1.2-3.4) L 10/11/18 16:58 Absolute Monocytes 0.59 k/cumm (0.11-0.7) 10/11/18 16:58 Absolute Eosinophils 0.12 k/cumm (0.0-0.7) 10/11/18 16:58 Absolute Basophils 0.05 k/cumm (0.0-0.2) 10/11/18 16:58 Sodium 136 mmol/L (136-145) 10/11/18 16:58 Potassium 3.6 mmol/L (3.5-5.1) 10/11/18 16:58 Chloride 99 mmol/L (98-107) 10/11/18 16:58 Carbon Dioxide 29.6 mmol/L (21.0-32.0) 10/11/18 16:58 Anion Gap 7.4 mmol/L (3-11) 10/11/18 16:58 BUN 12 mg/dL (7-18) 10/11/18 16:58 Creatinine 1.52 mg/dL (0.55-1.02) H 10/11/18 16:58 Estimated GFR/1.73 m2 33.16 (mL/min/1.73m2) 10/11/18 16:58 Glucose 109 mg/dL (70-100) H 10/11/18 16:58 Calcium 7.9 mg/dL (8.5-10.1) L 10/11/18 16:58 Magnesium 1.5 mg/dL (1.8-2.4) L 10/11/18 16:58 Total Bilirubin 0.6 mg/dL (0.2-1.0) 10/11/18 16:58 AST 10 U/L (15-37) L 10/11/18 16:58 ALT 13 U/L (12-78) 10/11/18 16:58 Alkaline Phosphatase 108 U/L (46-116) 10/11/18 16:58 Total Protein 6.8 g/dL (6.4-8.2) 10/11/18 16:58 Albumin 3.0 g/dL (3.4-5.0) L 10/11/18 16:58 Urine Color Yellow (Yellow) 10/11/18 17:15 Urine Clarity Clear 10/11/18 17:15 Urine pH 7.0 (5-8) 10/11/18 17:15 Ur Specific [place] 1.010 (1.005-1.025) 10/11/18 17:15 Urine Protein Negative mg/dL (Negative) 10/11/18 17:15 Urine Ketones Negative mg/dL (Negative) 10/11/18 17:15 Urine Blood Negative (Negative) 10/11/18 17:15 Urine Nitrite Negative (Negative) 10/11/18 17:15 Urine Bilirubin Negative (Negative) 10/11/18 17:15 Urine Urobilinogen 0.2 EU/dL (Up TO 0.2) 10/11/18 17:15 Ur Leukocyte Esterase Trace (Negative) H 10/11/18 17:15 Urine RBC 0-2 (0-2) 10/11/18 17:15 Urine WBC 0-2 HPF (0-5) 10/11/18 17:15 Ur Epithelial Cells Rare HPF (Negative) 10/11/18 17:15 Urine Crystals Negative HPF (Negative) 10/11/18 17:15 Urine Bacteria Rare HPF (Negative) 10/11/18 17:15 Urine Casts Negative LPF (Negative) 10/11/18 17:15 Urine Mucus Negative (Negative) 10/11/18 17:15 Urine Other Negative (Negative) 10/11/18 17:15 Ur Culture Indicated? No 10/11/18 17:15 Urine Glucose Negative mg/dL (Negative) 10/11/18 17:15
[2018-10-12] MEDS: Heparin 5,000 UNITS/ML VIAL 5000 UNITS SC (17:48)
--- NOTE | 2018-10-12 18:21 | PDOC.CMIN ---
- If Service Date Differs Date of service: 10/12/18 Time of Service: 18:21 Care Management Initial Assess REASON FOR HOSPITALIZATION:: dementia PAST MEDICAL HISTORY/PAST SURGICAL HISTORY:: Surgical History: Arthroplasty (08/17/14). Cholecystectomy. Colectomy (11/28/01). Lobectomy (04/06/09). colonoscopy (02/18/08). colonoscopy (10/03/12). colonoscopy (10/07/13). egd with dilitation (05/18/11). thyroid nodule biopsy (10/07/13) PREVIOUS FUNCTIONAL STATUS/SOCIAL/FAMILY SUPPORTS:: Yoli lives at home with her José Miguel in [place]. They have 3 sons who live in either [place] or in [place]. José Miguel stated that Yoli has been failing at home. He said she needs assistance with all ADLs and that her dementia is progressing rapidly.She has fallen twice in the last month. 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 CURRENT FUNCTIONAL STATUS:: Yoli was sitting up in a chair visiting with her when CM came to see her. She was pleasant but very confused. José Miguel expressed concerns about his ability to care for Yoli at home any longer and requested that ref[facility] be sent to [facility] or poissibly, watermelon inspector placement. He states they have just received retirement Medicaid. ADVANCE DIRECTIVES:: on file at [facility]. Lisette Cunningham HCA. [phone] Has patient been provided with information about the portal?: No Did the patient sign up for the portal?: No CODE STATUS:: DNR/DNI INSURANCE COVERAGE / FINANCIAL ISSUES:: Medicare. Medicaid CURRENT HOME/COMMUNITY SERVICES/EQUIPMENT:: none currently PRIMARY CARE PHYSICIAN:: Mel Cantu POTENTIAL DISCHARGE NEEDS:: [facility] facility for short or watermelon inspector placement. PATIENT/FAMILY EDUCATION NEEDS:: Discharge plan, limitations, follow up plan of care, Ask [employer]. ANTICIPATED BARRIERS TO DISCHARGE:: none at this time TRANSPORTATION:: to be determined by the plan of care PLAN:: Yoli remains in observation status. She will likely need placement in a SNF for short or retirement care. Referrals sent to [facility] and [facility] at her 's request. CM will continue to follow and support patient, family and the discharge planning process.
--- NOTE | 2018-10-12 18:38 | INITIAL_ITS ---
- If Service Date Differs Date of service: 10/12/18 Time of Service: 18:21 Care Management Initial Assess REASON FOR HOSPITALIZATION:: dementia PAST MEDICAL HISTORY/PAST SURGICAL HISTORY:: Surgical History: Arthroplasty (08/17/14). Cholecystectomy. Colectomy (11/28/01). Lobectomy (04/06/09). colonoscopy (02/18/08). colonoscopy (10/03/12). colonoscopy (10/07/13). egd with dilitation (05/18/11). thyroid nodule biopsy (10/07/13) PREVIOUS FUNCTIONAL STATUS/SOCIAL/FAMILY SUPPORTS:: Yoli lives at home with her José Miguel in [place]. They have 3 sons who live in either [place] or in [place]. José Miguel stated that Yoli has been failing at home. He said she needs assistance with all ADLs and that her dementia is progressing rapidly.She has fallen twice in the last month. 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 CURRENT FUNCTIONAL STATUS:: Yoli was sitting up in a chair visiting with her when CM came to see her. She was pleasant but very confused. José Miguel expressed concerns about his ability to care for Yoli at home any longer and requested that referrals be sent to [facility] or poissibly, intermediate school teacher placement. He states they have just received care home Medicaid. ADVANCE DIRECTIVES:: on file at [facility]. Lisette Cunningham HCA. [phone] Has patient been provided with information about the portal?: No Did the patient sign up for the portal?: No CODE STATUS:: DNR/DNI INSURANCE COVERAGE / FINANCIAL ISSUES:: Medicare. Medicaid CURRENT HOME/COMMUNITY SERVICES/EQUIPMENT:: none currently PRIMARY CARE PHYSICIAN:: Mel Cantu POTENTIAL DISCHARGE NEEDS:: custodial facility for short or intermediate school teacher placement. PATIENT/FAMILY EDUCATION NEEDS:: Discharge plan, limitations, follow up plan of care, Ask Me Three. ANTICIPATED BARRIERS TO DISCHARGE:: none at this time TRANSPORTATION:: to be determined by the plan of care PLAN:: Yoli remains in observation status. She will likely need placement in a SNF for short or care home care. Referrals sent to [facility] and [facility] at her 's request. CM will continue to follow and support patient, family and the discharge planning process.
[2018-10-13 06:54] VITALS: BP 160/68; PULSE 80; RESP 20; TEMP 37; O2SAT 100
[2018-10-13 07:13] LABS: Anion Gap 7.7 mmol/L (3-11); BUN 14 mg/dL (7-18); CO2 29.3 mmol/L (21.0-32.0); CREATININE 1.34 mg/dL (0.55-1.02); Calcium 8.2 mg/dL (8.5-10.1); Chloride 102 mmol/L (98-107); Estimated GFR 38.35 (mL/min/1.73m2); Glucose 97 mg/dL (70-100); Magnesium 2.1 mg/dL (1.8-2.4); Potassium 4.2 mmol/L (3.5-5.1); Sodium 139 mmol/L (136-145)
[2018-10-13] MEDS: Omeprazole 20 MG CAPCR PO (09:30)
[2018-10-13] MEDS: Citalopram 20 MG TAB PO (09:30)
--- NOTE | 2018-10-13 11:00 | PT.INTREAT ---
Date of service: 10/13/18 Time of Service: 10:20 PT Notes Inpatient Physical Therapy Treatment Note [facility] Date: 10/13/18 SUBJECTIVE: Yoli c/o right knee pain. States that it feels tight in the back and inside. OBJECTIVE: [] BED MOBILITY/TRANSFERS Sit-stand: min A x1. Stand-sit: CG GAIT Assistive Device: JORDAN WORKER Weight bearing: full] Assist: JORDAN WORKER/CG Distance: 10x2 THEREX: performed a global LE strengthening routine. See flowsheet for details. ASSESSMENT: tolerated session well, despite c/o right knee pain. She is very demented and is unable to follow directions. Constant tactile and verbal cues given for proper ex performance t/o todays session. PLAN: continue to progress her strength, endurance and functional mobility. TREATMENT CODE/TIME: 25 min. TPx1, TAx1.
--- NOTE | 2018-10-13 11:06 | PTTR_ITS ---
Date of service: 10/13/18 Time of Service: 10:20 PT Notes Inpatient Physical Therapy Treatment Note [facility] Date: 10/13/18 SUBJECTIVE: Yoli c/o right knee pain. States that it feels tight in the back and inside. OBJECTIVE: [] BED MOBILITY/TRANSFERS Sit-stand: min A x1. Stand-sit: CG GAIT Assistive Device: TOY DEPARTMENT MANAGER Weight bearing: full] Assist: TOY DEPARTMENT MANAGER/CG Distance: 10x2 THEREX: performed a global LE strengthening routine. See flowsheet for details. ASSESSMENT: tolerated session well, despite c/o right knee pain. She is very demented and is unable to follow directions. Constant tactile and verbal cues given for proper ex performance t/o todays session. PLAN: continue to progress her strength, endurance and functional mobility. TREATMENT CODE/TIME: 25 min. TPx1, TAx1.
--- NOTE | 2018-10-13 11:26 | W.PM.DS.N ---
Date of service: 10/13/18 Time of Service: 11:26 DS: Diagnosis Discharge Diagnosis (1) Dementia: Status: Chronic (2) Sensorineural hearing loss, bilateral: Status: Acute (3) Hypomagnesemia: Status: Acute (4) Dehydration: Status: Acute (5) DVT prophylaxis: Status: Acute (6) Discharge planning issues: Status: Acute Discharge Plan Disposition Patient Disposition: [facility] SWING BED LEVEL 1 Condition: Stable Discharge Details Reason For Visit: DEMENTIA,FALLING Admit Date/Time: 10/11/18 18:46 Admit Provider: José Miguel Zazueta Attending Provider: José Miguel Zazueta Primary Care Provider: [facility] Hospital Course: 78 female with advancing dementia. Here with increasing falls at home, and husban'ds inability to manage. Patient did complain of knee pain, film showDJD, no fracture; magnesimu 1.5 noted, geting replacemnt. Admitted for further management and possible terminal makeup operator placement. Patient has no complaints at this time. She was admitted to Observation m/s. She is severely demented. Ambulates around gates at night, sometimes refusing evening medication. Will cooperate during the day, does not know where she is the year or time frame. Pleasant at this time. She will be transferred to swing bed for PT/OT while awaiting placement. She did have low mag while inpatient and was repleted. PT/OT will be resumed with palliative care consult. Also psychiatry to see her to better manage her moods with appropriate medication. gerry Antony has been very confused. She is walking around the hallways. She cannot tell me if she is in pain, she keeps looking for someone, but does not know who. It is very difficult to get her to answer my questions. 1) Dementia: Monitor behaviors. On mirtazapine - may have to increase. (2) Sensorineural hearing loss, bilateral: f/u as outpatient (3) Hypomagnesemia: repleted - recheck in am (4) Dehydration: patient is unable to tolerate an IV in - pulls them out. Encourage PO fluids. (5) DVT prophylaxis: Start heparin SC (6) Discharge planning issues: DNR/DNI Will need placement Home Meds and New Rx's Prescriptions: Continued mirtazapine 7.5 mg tablet 7.5 mg PO QHS Qty: 90 RF: 3 citalopram 20 mg tablet 20 mg PO DAILY Qty: 90 RF: 4 Prilosec OTC 20 MG tablet,delayed release (DR/EC) 20 mg PO DAILY RF: 0 levothyroxine 50 mcg tablet 88 mcg PO DAILY RF: 0 acetaminophen [Mapap Extra Strength] 500 MG tablet 500 mg PO TID RF: 0 Discharge Instructions Additional Instructions: Continue PT/OT Palliative care to follow Psychiatry to follow regarding medication Activity:: Activity as Tolerated Equipment/Supplies:: No Equipment Needed Diet:: As Tolerated Exam Narrative Exam Narrative: General: obese elderly female, A&Ox1, disoriented, pleasant HEENT: EOMI, MMM Heart: not auscultated Lungs: nonlabored breathing, not auscultated GI: abdomen not visibly distended Extremities: 5/5 strength throughout, able to ambulate unassisted. DS: Data Vitals/I&O Vitals and I&O: Vital Signs Temperature 37.0 C 10/13/18 06:54 Temperature Source Temporal Artery Scan 10/13/18 06:54 Pulse 80 10/13/18 06:54 Pulse Rhythm Regular 10/13/18 00:09 Respiratory Rate 20 10/13/18 06:54 Respiratory Effort Non-Labored 10/13/18 00:09 Respiratory Depth Normal 10/13/18 00:09 Respiratory Pattern Normal 10/13/18 00:09 Blood Pressure 160/68 H 10/13/18 06:54 Pulse Oximetry 100 10/13/18 06:54 Oxygen Delivery Method Room Air 10/13/18 06:54 Oxygen Flow Rate 0 10/13/18 06:54 Pain Level 3 10/11/18 19:57 Intake & Output 10/12/18 10/12/18 10/13/18 11:59 23:59 11:59 Intake Total 340 / 1268.333 928.333 / 1268.333 500 / 500 Output Total 1000 / 1350 350 / 1350 700 / 700 Balance -660 / -81.667 578.333 / -81.667 -200 / -200 Intake: IV 188.333 / 188.333 Oral 340 / 1080 740 / 1080 500 / 500 Output: Urine 1000 / 1350 350 / 1350 700 / 700 Other: Urine Color Yellow Pale Yellow Yellow Urine Appearance Clear Clear Clear Urine Odor None None Normal Stool Size Moderate Stool Characteristics Soft Formed Brown Voiding Methods Bedside Commode Toilet Toilet Completed studies during hospitalization [Text1]: Exam(s) EXAM: XR Right Knee EXAM DATE/TIME: 10/11/2018 4:32 PM CLINICAL HISTORY: 78 years old, female; Right; Patient HX: R knee pain TECHNIQUE: Imaging protocol: XR Right knee. Views: 4 or more views. COMPARISON: No relevant prior studies available. FINDINGS: Bones/joints: Marked joint space narrowing in the patellofemoral joint. Essentially [id number]. Osteophyte formation in the superior pole of the patella Osteophyte formation in the intercondylar eminence Soft tissues: Soft tissue swelling over the anterior aspect of the knee. IMPRESSION: 1. Marked joint space narrowing in the patellofemoral joint. Essentially [id number]. 2. Soft tissue swelling over the anterior aspect of the knee. Exam(s) EXAM: XR Left Ribs, 2 Views CLINICAL HISTORY: 77 years old, female; Pain; Chest pain; Type not specified; Other: Left sided posterior rib pain S/P fall, R/O acute FX. TECHNIQUE: Frontal and oblique views of the left ribs. COMPARISON: No relevant prior studies available. FINDINGS: Lungs: Unremarkable as visualized. No consolidation. Pleural space: Unremarkable. No pneumothorax. Bones/joints: Unremarkable. No acute fracture. IMPRESSION: Normal left rib x-rays. Labs on day of discharge: Labs from last 24 hours 10/13/18 06:45 Sodium 139 Potassium 4.2 Chloride 102 Carbon Dioxide 29.3 Anion Gap 7.7 BUN 14 Creatinine 1.34 H Estimated GFR/1.73 m2 38.35 Glucose 97 Calcium 8.2 L Magnesium 2.1 [facility] Surgical History Arthroplasty (08/17/14) Cholecystectomy Colectomy (11/28/01) Lobectomy (04/06/09) colonoscopy (02/18/08) colonoscopy (10/03/12) colonoscopy (10/07/13) egd with dilitation (05/18/11) thyroid nodule biopsy (10/07/13) Social History Smoking/Tobacco Use Status: Former Tobacco Use Drug use: Never Substance use type: does not use Household members: spouse Housing: house Do you feel safe in your relationship?: Yes
--- NOTE | 2018-10-13 13:19 | NUR.NOTE ---
Nursing Note: 1144: pt from acute to SB1 status at this time. pt remains in room 227
--- NOTE | 2018-10-14 13:02 | PT.INDS ---
Date of service: 10/14/18 Time of Service: 13:02 PT Notes Inpatient Physical Therapy Discharge Summary Dates: 10/14/2018 Dates of Service: 10/12/2018 through 10/13/2018 Referring Doctor: José Miguel Zazueta MD PT Orders: PT CONSULT: Ambulation, eval/treat Precautions: Standard/fall risk Patient Profile/Admitting Diagnosis: 78-year-old female with progressive dementia, with development of atraumatic right knee pain, requiring EMS transferred to ER on 10/11/2018 due to 's inability to assist her. Recent history of increased falls and multiple arthralgias. Patient converted to swing bed status as of 09/1618. PMHX: Surgical History Arthroplasty (08/17/14) Cholecystectomy Colectomy (11/28/01) Lobectomy (04/06/09) colonoscopy (02/18/08) colonoscopy (10/03/12) colonoscopy (10/07/13) egd with dilitation (05/18/11) thyroid nodule biopsy (10/07/13) Per report, arthritis, progressive dementia. Obese. Social History/Home Situation: Lives in a private home with her , who is her main potash flaker. He is now feeling overwhelmed and considering placement. Current Functional Limitations: Requires close supervision to contact-guard with functional ambulation and sit to stand transfers, needs constant reminders to utilize assistive device, and safe performance of all functional movements and transfers. Equipment Owned/DME: Walker and cane, has been admits that she is not good about using either due to her dementia. Subjective: Complains of mild right knee pain after walking 300 feet without an assistive device with the, unable to understand the VAS so cannot rate this. reports that her falls are increasing, she is been sleeping on the main floor of her home in recliner for the past week, due to her choice, not necessarily due to her inability to descend the stairs. However since she is not been going up and down the stairs at their home, he is noted physical decline in her condition and increase in knee pain. Falls are occurring when she is attempting to get out of bed on her own, or when ambulating on uneven terrain in their yard. Objective: General Observation: Obese, looks older than stated age, sitting in recliner chair with legs elevated, ice on the right knee. and patient sitter present throughout PT reevaluation in session today Mental Status: Alert, oriented to person, confused by day and place. Easily confused. Pain: Right knee, patient unable to rate. ROM: Right Upper Extremity: Grossly WNL Left Upper Extremity: Grossly WNL Right Lower Extremity: Right knee limited to 0 to 90 degrees limited by pain, otherwise grossly WNL Left Lower Extremity: Grossly WNL Strength: Right Upper Extremity: Grossly 4/5 Left Upper Extremity: Grossly 4/5 Right Lower Extremity: Hip flexion 3/5, knee flexion/extension 3+/5 with pain, DF 4/5 with pain, PF 4/5 Left Lower Extremity: Hip flexion 3/5, knee flexion/extension 4+/5, DF 4/5 no pain, PF 4/5 Sensation: Not assessed Bed Mobility/Transfers: Contact-guard sit to stand at walker Contact-guard sit to stand, and vice versa to toilet Gait: Contact-guard by this PT with no assistive device, minimal verbal cues required throughout for directional changes and overall safety. No antalgia observed throughout gait activity with pain complaint only upon sitting back down on recliner after gait activity. Balance: Static Sitting: Good Dynamic Sitting: Good Static Standing: Fair Dynamic Standing: Fair Special Tests: Mobility Limitations Standardized Measure [facility]-PAC 6 clicks Basic Mobility Inpatient Short Form: Raw Score: 18 CMS Score: 47% disability Informed Consent/Education: Patient instructed in purpose of PT consult and plan of care. Assessment: Patient is a 78 year old female referred to physical therapy services with the diagnosis of R knee pain and subsequent gait deficits. Patient presents with clinical signs and symptoms consistent with progressive dementia and right knee OA exacerbation. It would not be unreasonable for orthopedic consultation of the right knee, in the event that injection may be appropriate, or other recommendations for pain control, in the setting that her symptoms do not resolve with time. Impairment level findings: Global weakness, but particularly of the right knee, mobility deficits of the right knee, gait antalgia, poor balance, and poor body awareness due to her dementia confusion. Impairments are contributing to the following functional limitations: AMPAC score of 50% disability, unsteady gait, pain with weightbearing, requires assist with transfers and ambulation, high risk of falls. Patient is assessed as a Moderate [id number] complexity based on the following: History: Patient with progressive dementia with impaired safety awareness and comorbidities as listed above Examination: See above impairments and functional limitations Presentation: Evolving Decision Making: Moderate Goals: Goals X1 week 1. Supine-Sit close supervision MET 2. Sit-Supine close supervision MET 3. Sit-Stand contact-guard 1, walker MET 4. Stand-Sit contact-guard 1, walker MET 5. Bed-Chair contact-guard 1, walker MET 6. Chair-Bed contact-guard 1, walker MET 7. Gait contact-guard 1, walker, with less reminders to use walker appropriately MET DISCHARGE RECOMMENDATIONS: Patient will be reevaluated under swing bed status today. Still agree that patient is now appropriate for long-term placement, due to her high fall risk, but most importantly because of her progressive dementia, as her is not able to safely or effectively care for her. TREATMENT CODE/TIME: ELIO.
== END 2018-10-13 11:44 | disposition swing bed (61) ==
LOC: ER 19:19 → MS 19:27
PROVIDERS: Admitting Provider General Practice; Emergency Provider Emergency Medicine; PCP Family Medicine; Visit Provider Internal Medicine
DX: F03.90 Unspecified dementia, unspecified severity, without behavioral disturbance, psychotic disturbance, mood disturbance, and anxiety (principal); R29.6 Repeated falls; M25.561 Pain in right knee; G89.29 Other chronic pain; R07.81 Pleurodynia; E83.42 Hypomagnesemia; E86.0 Dehydration; H90.3 Sensorineural hearing loss, bilateral
CPT/HCPCS: 36415; 80048; 80053; 96365; 97162; 99222; 99225; 99239; 99285; 73564; 81003; 81015; 83735; 85025; 99217; 99219; 99284; G0378; J1644; J3475

== ENCOUNTER 2018-10-13 12:10 | Inpatient (IN) | payer MEDICARE, OTHER, MEDICAID, SELFPAY ==
--- NOTE | 2018-10-13 11:44 | W.PM.HP.N ---
Date of service: 10/13/18 Time of Service: 11:49 Assessment and Plan (1) Discharge planning issues: Start date: 10/13/18 Start time: 11:51 Current visit: Yes Status: Acute Looking for placement in a severely demented patient. She wanders the gates at night and is very confused, does not know where she is, when it is, at times who she is. Sometimes will cooperate, other times will not. Placed in swing bed level 1 while looking for placement, PT/Ot can work with Patient. Psychiatry consulted for medication management of symptoms from dementia Palliative care to continue following patient. Increase dosing of mirtazapine and see how patient does. (2) Hypomagnesemia: Start date: 10/13/18 Start time: 11:53 Current visit: Yes Status: Acute Resolved. (3) Dementia: Start date: 10/13/18 Start time: 11:53 Current visit: No Status: Chronic See above. History of Present Illness Chief Complaint: DEMENTIA Narrative: 78 female with advancing dementia. Here with increasing falls at home, and husban'ds inability to manage. Patient did complain of knee pain, film show DJD, no fracture; magnesium 1.5 noted, getting replacemnt. Admitted for further management and possible senior care placement. Patient has no complaints at this time. She was admitted to Observation m/s. She is severely demented. Ambulates around gates at night, sometimes refusing evening medication. Will cooperate during the day, does not know where she is the year or time frame. Pleasant at this time. She will be transferred to swing bed for PT/OT while awaiting placement. She did have low mag while inpatient and was repleted. PT/OT will be resumed with palliative care consult. Also psychiatry to see her to better manage her moods with appropriate medication. gerry Antony has been very confused. She is walking around the hallways. She cannot tell me if she is in pain, she keeps looking for someone, but does not know who. It is very difficult to get her to answer my questions. Review of Systems Review of Systems All systems reviewed & are unremarkable except as noted in HPI and below PFSH Surgical History Arthroplasty (08/17/14) Cholecystectomy Colectomy (11/28/01) Lobectomy (04/06/09) colonoscopy (02/18/08) colonoscopy (10/03/12) colonoscopy (10/07/13) egd with dilitation (05/18/11) thyroid nodule biopsy (10/07/13) Social History Smoking/Tobacco Use Status: Former Tobacco Use Drug use: Never Substance use type: does not use Household members: spouse Housing: house Do you feel safe in your relationship?: Yes Meds Home Medications Medication Instructions Recorded Confirmed Type Prilosec OTC 20 mg PO DAILY 08/29/13 10/11/18 History acetaminophen [Mapap Extra 500 mg PO TID 06/27/17 10/11/18 History Strength] levothyroxine 50 mcg tablet 88 mcg PO DAILY tab 02/06/18 10/11/18 History citalopram 20 mg tablet 20 mg PO DAILY #90 tab-cap 03/29/18 10/11/18 Rx mirtazapine 7.5 mg tablet 7.5 mg PO QHS #90 tab 10/09/18 10/11/18 Rx Allergies Allergy/AdvReac Type Severity Reaction Status Date / Time codeine Allergy Unknown Unverified 10/27/17 11:20 lisinopril Allergy Unknown Unverified 10/27/17 11:20 NSAIDS (Non-Steroidal Allergy Unknown Unverified 10/27/17 11:20 Anti-Inflamma sertraline Allergy Unknown Unverified 10/27/17 11:20 simvastatin AdvReac Unknown Unverified 10/27/17 11:20 hydrocodone-acetominophen AdvReac Unknown Uncoded 10/27/17 11:20 Exam Narrative Exam Narrative: Exam Narrative: General: obese elderly female, A&Ox1, disoriented, pleasant HEENT: EOMI, MMM Heart: not auscultated Lungs: nonlabored breathing, not auscultated GI: abdomen not visibly distended Extremities: 5/5 strength throughout, able to ambulate unassisted.
--- NOTE | 2018-10-13 13:19 | NUR.NOTE ---
Nursing Note: 1145: pt admitted to SB1 from acute at this time. pt remains in room 227
[2018-10-13 15:39] VITALS: BP 101/50; PULSE 65; RESP 18; TEMP 36.6; O2SAT 98
[2018-10-13] MEDS: Mirtazapine 15 MG TAB 7.5 MG PO (16:09)
[2018-10-13] MEDS: Heparin 5,000 UNITS/ML VIAL 5000 UNITS SC (18:06)
--- NOTE | 2018-10-13 19:21 | CMSA_ITS ---
- If Service Date Differs Date of service: 10/13/18 Time of Service: 19:21 SB Psychosocial/Act.Assessment - Hospital Admission Admission Date: 10/11/18 Admission From:: ED Diagnosis:: Dementia - Swing Bed Admission Swing Bed Admit Date:: 10/13/18 Swing Bed Level of Care: Level 1/SNF - Social Supports PREVIOUS FUNCTIONAL STATUS/SOCIAL/FAMILY SUPPORTS:: Yoli lives at home with her José Miguel in [place]. They have 3 sons who live in either [place] or in [place]. José Miguel stated that Yoli has been failing at home. He said she needs assistance with all ADLs and that her dementia is progressing rapidly.She has fallen twice in the last month. 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 - Prior to Admission Living Arrangements/Environment Prior to Admission:: Yoli lived at home with her José Miguel in a single family home. - Education Highest Grade Completed:: 12 Where did you attend School:: [employer] Special Education/Training:: none - Work History Employment Status:: retired. Yoli was an [employer] for 25 years - : No 's Spouse: No - Benefits Financial: Medicare, Medicaid - Yazidism Active Mandaen Member:: No - Advance Directives for Healthcare Advance Directives for Healthcare: Durable Power of Special Effects Designer for Healthcare Advance Directive Agent: José Miguel - Interests Table Games:: [employer] TV/Movies:: likes to watch game shows Reading:: loves books and magazines, especially those related to home decor Other Activities:: loves jewelry, lipstick, cats and dogs and lipstick amd makeup. - Present Functional Status Physical Abilities:: good Cognitive:: severe memory loss Communication:: is able to communicate but statements often unrelated to the discussion Behavior:: wanders occasionally, usually in search of othe people as she is a very social person - Medical History PAST MEDICAL HISTORY/PAST SURGICAL HISTORY:: Surgical History: Arthroplasty (08/17/14). Cholecystectomy. Colectomy (11/28/01). Lobectomy (04/06/09). colonoscopy (02/18/08). colonoscopy (10/03/12). colonoscopy (10/07/13). egd with dilitation (05/18/11). thyroid nodule biopsy (10/07/13) General Health:: good - Admission Data Reason for Swing Bed Admission:: awaiting oil heaterman placement Discharge Plan:: Yoli will be discharge to a correction care facility Engine Assembly Supervisor: Rosenda Joel Date Assessment was completed:: 10/13/18
--- NOTE | 2018-10-13 19:22 | CM.SWINGPC ---
- If Service Date Differs Date of service: 10/13/18 Time of Service: 19:22 Swingbed Plan of Care Plan of care: SWING BED PROGRAM ACTIVITIES/DISCHARGE PLAN OF CARE ACTIVITIES PLAN Date:10/14/18 Identified Need: activities to interest and redirect Yoli Intervention/Plan:Yoli will be offered coloring books and crayons, magazines and family will bring in [employer] game to play with her. Initials [facility] DISCHARGE PLAN Date:10/14/18 Identified Need: termination clerk placement Intervention/Plan: Referrals sent to [facility] and the [facility]. [facility]
--- NOTE | 2018-10-13 19:22 | CMSCP_ITS ---
- If Service Date Differs Date of service: 10/13/18 Time of Service: 19:22 Swingbed Plan of Care Plan of care: SWING BED PROGRAM ACTIVITIES/DISCHARGE PLAN OF CARE ACTIVITIES PLAN Date:10/14/18 Identified Need: activities to interest and redirect Yoli Intervention/Plan:Yoli will be offered coloring books and crayons, magazines and family will bring in [employer] game to play with her. Initials [facility] DISCHARGE PLAN Date:10/14/18 Identified Need: long term care pharmacist placement Intervention/Plan: Referrals sent to [facility] and the [facility]
[2018-10-13] MEDS: Magnesium Chloride 64 MG TABCR PO (20:12)
[2018-10-13 21:44] VITALS: BP 126/80; PULSE 68; RESP 18; TEMP 36.6; O2SAT 96
[2018-10-14] MEDS: Heparin 5,000 UNITS/ML VIAL 5000 UNITS SC ×2 (06:00→17:50)
[2018-10-14] MEDS: Levothyroxine 88 MCG TAB PO (06:01)
[2018-10-14 07:18] LABS: Platelet Count 396 x1000/uL (130-400)
[2018-10-14] MEDS: Omeprazole 20 MG CAPCR PO (08:54)
[2018-10-14] MEDS: Citalopram 20 MG TAB PO (08:54)
[2018-10-14 09:32] VITALS: BP 125/73; PULSE 88; RESP 20; TEMP 36.7; O2SAT 98
--- NOTE | 2018-10-14 13:25 | PT.INIE ---
Date of service: 10/14/18 Time of Service: 11:08 PT Notes Inpatient Physical Therapy Evaluation Date: 10/14/2018 Referring Doctor: José Miguel Zazueta MD PT Orders: PT CONSULT: Ambulation, eval/treat Precautions: Standard/fall risk Patient Profile/Admitting Diagnosis: 78-year-old female with progressive dementia, with development of atraumatic right knee pain, requiring EMS transferred to ER on 10/11/2018 due to 's inability to assist her. Recent history of increased falls and multiple arthralgias. Patient converted to swing bed status as of 10/13/18 and continues under swing bed level for balance training and therapy discharge planning. PMHX: Surgical History Arthroplasty (08/17/14) Cholecystectomy Colectomy (11/28/01) Lobectomy (04/06/09) colonoscopy (02/18/08) colonoscopy (10/03/12) colonoscopy (10/07/13) egd with dilitation (05/18/11) thyroid nodule biopsy (10/07/13) Per report, arthritis, progressive dementia. Obese. Social History/Home Situation: Lives in a private home with her , who is her main classroom technology technician. He is now feeling overwhelmed and considering placement. Current Functional Limitations: Requires close supervision to contact-guard with functional ambulation and sit to stand transfers, needs constant reminders to utilize assistive device, and safe performance of all functional movements and transfers. Equipment Owned/DME: Walker and cane, has been admits that she is not good about using either due to her dementia. Subjective: Complains of mild right knee pain after walking 300 feet without an assistive device with the, unable to understand the VAS so cannot rate this. reports that her falls are increasing, she is been sleeping on the main floor of her home in recliner for the past week, due to her choice, not necessarily due to her inability to descend the stairs. However since she is not been going up and down the stairs at their home, he is noted physical decline in her condition and increase in knee pain. Falls are occurring when she is attempting to get out of bed on her own, or when ambulating on uneven terrain in their yard. Objective: General Observation: Obese, looks older than stated age, sitting in recliner chair with legs down. and patient sitter present throughout PT reevaluation in session today Mental Status: Alert, oriented to person, confused by day and place. Easily confused. Pain: Mild pain on R knee ROM: Right Upper Extremity: Grossly WNL Left Upper Extremity: Grossly WNL Right Lower Extremity: Right knee limited to 0 to 90 degrees limited by pain, otherwise grossly WNL Left Lower Extremity: Grossly WNL Strength: Right Upper Extremity: Grossly 4/5 Left Upper Extremity: Grossly 4/5 Right Lower Extremity: Hip flexion 3/5, knee flexion/extension 3+/5 with pain, DF 4/5 with pain, PF 4/5 Left Lower Extremity: Hip flexion 3/5, knee flexion/extension 4+/5, DF 4/5 no pain, PF 4/5 Bed Mobility/Transfers: Rolling CGA Supine to sit CGA Sit to supine CGA Sit to stand SBA Stand to sit SBA Bed to chair SBA Chair to bed SBA Gait: Hand-held assist by this PT with no assistive device, minimal verbal cues required throughout for directional changes and overall safety. No antalgia observed throughout gait activity with pain complaint only upon sitting back down on recliner after gait activity. Balance: Static Sitting: Good Dynamic Sitting: Good Static Standing: Fair Dynamic Standing: Fair Special Tests: Mobility Limitations Standardized Measure [facility]-PAC 6 clicks Basic Mobility Inpatient Short Form: Raw Score: 18 CMS Score: 47% disability Informed Consent/Education: Patient and instructed in purpose of PT consult and plan of care. Assessment: Patient is a 78 year old female referred to physical therapy services with the diagnosis of R knee pain and subsequent gait deficits. Patient presents with clinical signs and symptoms consistent with progressive dementia and right knee OA exacerbation. It would not be unreasonable for orthopedic consultation of the right knee, in the event that injection may be appropriate, or other recommendations for pain control, in the setting that her symptoms do not resolve with time. Impairment level findings: Global weakness, but particularly of the right knee, mobility deficits of the right knee, gait antalgia, poor balance, and poor body awareness due to her dementia confusion. Impairments are contributing to the following functional limitations: AMPAC score of 50% disability, unsteady gait, pain with weightbearing, requires assist with transfers and ambulation, high risk of falls. Patient is assessed as a Moderate 00274 complexity based on the following: History: Patient with progressive dementia with impaired safety awareness and comorbidities as listed above Examination: See above impairments and functional limitations Presentation: Evolving Decision Making: Moderate Goals: Goals X1 week 1. Supine-Sit independent 2. Sit-Supine independent 3. Sit-Stand independent 4. Stand-Sit independent 5. Bed-Chair independent 6. Chair-Bed independent 7. Supervision gait on level surface with use of least restrictive device for at least 300 feet without report of pain nor dyspnea 8. Supervision with home exercise program 9. Good static and dynamic standing balance/tolerance DISCHARGE RECOMMENDATIONS: Patient will be reevaluated under swing bed status today. Still agree that patient is now appropriate for long-term placement, due to her high fall risk, but most importantly because of her progressive dementia, as her is not able to safely or effectively care for her. TREATMENT CODE/TIME: 86581 x 20 minutes, 16694 x 15 minutes beginning at 11:08 AM. Thank you very much for this referral. Shayy Lucio PT, DPT, CLT [facility]
--- NOTE | 2018-10-14 14:10 | OT.INIE ---
Occupational Therapy Notes Inpatient Occupational Therapy Evaluation Date: 10/14/18 Referring Doctor:Hillary Paredes NP OT Orders: Eval and Treat Precautions: Standard/fall risk Patient Profile/Admitting Diagnosis: Pt is a 78-year-old female with progressive dementia, with development of atraumatic right knee pain, requiring EMS transferred to ER on 10/11/2018 due to 's inability to assist her. Patient transitioned to swing bed status as of 10/13/18. PMHX: Arthroplasty (08/17/14) Cholecystectomy Colectomy (11/28/01) Lobectomy (04/06/09) colonoscopy (02/18/08) colonoscopy (10/03/12) colonoscopy (10/07/13) egd with dilitation (05/18/11) thyroid nodule biopsy (10/07/13) Social History/Home Situation: Lives in a private home with her , who is her main furnace caretaker. He is now feeling overwhelmed and considering placement to SNF. Pt is confused stating that she lives with her parents still, she goes on to state she is not sure where she is. Subjective: Pt was sitting in chair when OT arrived. She was agreeable to OT session reporting that she was tired this morning. Objective: General Observation: Pleasant, poor historian d/t dementia. Mental Status: Alert, oriented to person, confused by day and place. Easily confused. Pain: slight c/o pain in (R) knee after performing functional mobility for ~5-10 minutes. ROM: Right Upper Extremity: Grossly WNL Left Upper Extremity: Grossly WNL Strength: Right Upper Extremity: Grossly 4/5 Left Upper Extremity: Grossly 4/5 Functional Mobility/ADLs: Toileting- On toilet (I) with decreased safety awareness Bathing- Sitting in chair with max (A) Set up (I) UE/LE with mod vc and step by step instructions. Dressing- Sitting in chair (I) with don and doff (B) socks with increased vc for leg placement. VC provided for safety awareness. Eating- (I) sitting in chair Grooming- Standing at sink (I) with brushing hair with vc for weight shifting and body awareness Balance: Static Sitting: Good Dynamic Sitting: Good Static Standing: Fair Dynamic Standing: Fair SPECIAL TESTS: Daily Activity Limitations Standardized Measure [facility] AM -PAC ?6 clicks? Daily Activity Inpatient Short Form: Raw score: 23, CMS score 15.86% INFORMED CONSENT/EDUCATION: Pt instructed in purpose of OT Consult and plan of care. Assessment: Patient is a 78 year old female referred to occupational therapy services with the diagnosis of progressive dementia, with development of atraumatic right knee pain, requiring EMS transferred to ER on 10/11/2018 due to 's inability to assist her. Recent history of increased falls and multiple joint arthralgias. Pt was seen for OT consult only. Due to pts mental/cognitive status she is unable to follow/learn a new routine. However pt is functionally able to perform her ADLs but is unable to perform this without vc throughout and step by step instructions. She was able to perform ADLs with decreased safety awareness and functional activity tolerance. OT recommends that pt go to SNF when medically cleared per MD. Patient is assessed as a Moderate 43677 complexity based on the following: History: See Above Examination: See Above Presentation: Evolving Decision Making: Moderate OT plan of care: OT consult only. Goals: N/A DISCHARGE RECOMMENDATIONS: OT recommends that pt go to SNF when medically cleared per MD. Pt is able to perform ADLs but is unable to demonstrate without vc and she presents with decreased safety awareness. TREATMENT CODE/TIME: 72536, 91605m4, 45 minutes (09:30) [facility]
--- NOTE | 2018-10-14 14:13 | OTIE_ITS ---
Occupational Therapy Notes Inpatient Occupational Therapy Evaluation Date: 10/14/18 Referring Doctor:Hillary Paredes NP OT Orders: Eval and Treat Precautions: Standard/fall risk Patient Profile/Admitting Diagnosis: Pt is a 78-year-old female with progressive dementia, with development of atraumatic right knee pain, requiring EMS transferred to ER on 10/11/2018 due to 's inability to assist her. Patient transitioned to swing bed status as of 10/13/18. PMHX: Arthroplasty (08/17/14) Cholecystectomy Colectomy (11/28/01) Lobectomy (04/06/09) colonoscopy (02/18/08) colonoscopy (10/03/12) colonoscopy (10/07/13) egd with dilitation (05/18/11) thyroid nodule biopsy (10/07/13) Social History/Home Situation: Lives in a private home with her , who is her main staff scientist. He is now feeling overwhelmed and considering placement to SNF. Pt is confused stating that she lives with her parents still, she goes on to state she is not sure where she is. Subjective: Pt was sitting in chair when OT arrived. She was agreeable to OT session reporting that she was tired this morning. Objective: General Observation: Pleasant, poor historian d/t dementia. Mental Status: Alert, oriented to person, confused by day and place. Easily confused. Pain: slight c/o pain in (R) knee after performing functional mobility for ~5-10 minutes. ROM: Right Upper Extremity: Grossly WNL Left Upper Extremity: Grossly WNL Strength: Right Upper Extremity: Grossly 4/5 Left Upper Extremity: Grossly 4/5 Functional Mobility/ADLs: Toileting- On toilet (I) with decreased safety awareness Bathing- Sitting in chair with max (A) Set up (I) UE/LE with mod vc and step by step instructions. Dressing- Sitting in chair (I) with don and doff (B) socks with increased vc for leg placement. VC provided for safety awareness. Eating- (I) sitting in chair Grooming- Standing at sink (I) with brushing hair with vc for weight shifting and body awareness Balance: Static Sitting: Good Dynamic Sitting: Good Static Standing: Fair Dynamic Standing: Fair SPECIAL TESTS: Daily Activity Limitations Standardized Measure [facility] AM -PAC ?6 clicks? Daily Activity Inpatient Short Form: Raw score: 23, CMS score 15.86% INFORMED CONSENT/EDUCATION: Pt instructed in purpose of OT Consult and plan of care. Assessment: Patient is a 78 year old female referred to occupational therapy services with the diagnosis of progressive dementia, with development of atraumatic right knee pain, requiring EMS transferred to ER on 10/11/2018 due to 's inability to assist her. Recent history of increased falls and multiple joint arthralgias. Pt was seen for OT consult only. Due to pts mental/cognitive status she is unable to follow/learn a new routine. However pt is functionally able to perform her ADLs but is unable to perform this without vc throughout and step by step instructions. She was able to perform ADLs with decreased safety awareness and functional activity tolerance. OT recommends that pt go to SNF when medically cleared per MD. Patient is assessed as a Moderate 80261 complexity based on the following: History: See Above Examination: See Above Presentation: Evolving Decision Making: Moderate OT plan of care: OT consult only. Goals: N/A DISCHARGE RECOMMENDATIONS: OT recommends that pt go to SNF when medically cleared per MD. Pt is able to perform ADLs but is unable to demonstrate without vc and she presents with decreased safety awareness. TREATMENT CODE/TIME: 41842, 29407y6, 45 minutes (09:30) [facility]
[2018-10-14] MEDS: traZODone 50 MG TAB PO (14:36)
--- NOTE | 2018-10-14 15:01 | W.PM.PROGNOT ---
Date of Service Date of service: 10/14/18 Time of Service: 15:01 Subjective Interval history since last seen: Recommendation by Dr. James to give 50 mg daily around 1400 for effectiveness to reduce sundowning symptoms of dementia. Objective Objective Clinical Data: Vital Signs Temperature 36.7 C 10/14/18 09:32 Temperature Source Tympanic 10/14/18 09:32 Pulse 88 10/14/18 09:32 Pulse Rhythm Regular 10/14/18 08:59 Respiratory Rate 20 10/14/18 09:32 Respiratory Effort Non-Labored 10/14/18 08:59 Respiratory Depth Normal 10/14/18 08:59 Respiratory Pattern Normal 10/14/18 08:59 Blood Pressure 125/73 10/14/18 09:32 Pulse Oximetry 98 10/14/18 09:32 Oxygen Delivery Method Room Air 10/14/18 09:32 Oxygen Flow Rate 0 10/14/18 09:32 Pain Level 0 10/13/18 15:39 Intake & Output 10/13/18 10/14/18 10/14/18 23:59 11:59 23:59 Intake Total 480 / 480 200 / 200 Output Total 200 / 200 Balance 280 / 280 200 / 200 Weight 77.1 kg Intake: Oral 480 / 480 200 / 200 Output: Urine 200 / 200 Other: Urine Color Yellow Pale Yellow Urine Appearance Clear Clear Urine Odor Normal None Comment voided x 2 this shift, pt performs own care Voiding Methods Toilet Toilet Toilet Laboratory Results Plt Count 396 x1000/uL (130-400) 10/14/18 06:47
[2018-10-14 15:10] VITALS: BP 120/83; PULSE 61; RESP 18; TEMP 36.8; O2SAT 96
--- NOTE | 2018-10-14 15:23 | CHAPLAIN ---
Yoli was sitting up and looking through catalogues when I stopped in. She was clearly confused and responded to questions by bringing up other subjects. A family member was with her and brought Yoli ice tea and [employer] bars, which she really likes. Yoli asked where her was, and the relatives said he'd gone grocery shopping.
--- NOTE | 2018-10-14 15:28 | PT.INTREAT ---
Date of service: 10/14/18 Time of Service: 15:28 PT Notes Inpatient Physical Therapy Treatment Note [facility] Date: 10/14/18 PRECAUTIONS: Fall SUBJECTIVE: Yoli is agreeable to participating in PT following some encouragement. She is concerned about leaving her personal belongings in her room, and believes she is going home this afternoon and believes that she is waiting for her ride. OBJECTIVE: PAIN: Patient c/o R knee discomfort with ther ex BED MOBILITY/TRANSFERS Sit-stand: SBA Stand-sit: SBA GAIT Assistive Device: BATTERY STARTER Weight bearing: Full Assist: CGA Distance: 150' THEREX: Patient completed a LE strengthening program, in a standing position with U UE support and SBA, as per flow sheet. ASSESSMENT: Patient was able to tolerate the addition of LE strengthening exercises today. Patient would benefit from continued gait and transfer training, as well as strengthening for improved ability to perform daily functional tasks at a more independent level. PLAN: Incorporate balance retraining exercises, if patient able to follow direction. TREATMENT CODE/TIME: 15 minutes; 29004
--- NOTE | 2018-10-14 15:32 | PTTR_ITS ---
Date of service: 10/14/18 Time of Service: 15:28 PT Notes Inpatient Physical Therapy Treatment Note [facility] Date: 10/14/18 PRECAUTIONS: Fall SUBJECTIVE: Yoli is agreeable to participating in PT following some encouragement. She is concerned about leaving her personal belongings in her room, and believes she is going home this afternoon and believes that she is waiting for her ride. OBJECTIVE: PAIN: Patient c/o R knee discomfort with ther ex BED MOBILITY/TRANSFERS Sit-stand: SBA Stand-sit: SBA GAIT Assistive Device: [employer]OR [employer]Y Weight bearing: Full Assist: CGA Distance: 150' THEREX: Patient completed a LE strengthening program, in a standing position with U UE support and SBA, as per flow sheet. ASSESSMENT: Patient was able to tolerate the addition of LE strengthening exercises today. Patient would benefit from continued gait and transfer training, as well as strengthening for improved ability to perform daily functional tasks at a more independent level. PLAN: Incorporate balance retraining exercises, if patient able to follow direction. TREATMENT CODE/TIME: 15 minutes; 44045
[2018-10-14] MEDS: Mirtazapine 15 MG TAB PO (16:50)
[2018-10-15] MEDS: Levothyroxine 88 MCG TAB PO (05:53)
[2018-10-15] MEDS: Heparin 5,000 UNITS/ML VIAL 5000 UNITS SC (05:54)
[2018-10-15 06:33] VITALS: BP 152/78; PULSE 77; RESP 18; TEMP 36.6; O2SAT 95
[2018-10-15 08:00] VITALS: BP 171/98; PULSE 85; RESP 18; TEMP 36.5; O2SAT 95
[2018-10-15] MEDS: Citalopram 20 MG TAB PO (09:55)
[2018-10-15] MEDS: Omeprazole 20 MG CAPCR PO (09:55)
--- NOTE | 2018-10-15 10:22 | PDOC.CMDIS ---
LACE Index Scoring Tool - Questions: Length of Stay (in days): 4 - 6 Acuity (Admit via E.D.?): Yes E.D. Visits: 1 - Answers: Total Score: 8 Risk of Readmission: Low Risk Care Management Discharge Reason for Hospitalization: dementia Discharge Plan: She is being transferred to [facility] via ambulance for short term rehab and then LTC. is unable to care for her at home. Patient/Family Education Needs: RN to review d/c instructions and medications with staff from [facility]. able to verbalize reason for hospitalization. CM spoke with him this AM to advise him of transfer. Services Needed at Discharge: Physical Therapy, Correction Facility
--- NOTE | 2018-10-15 10:52 | W.PM.DS.N ---
Date of service: 10/15/18 Time of Service: 10:53 DS: Diagnosis Discharge Diagnosis (1) Discharge planning issues: Status: Acute (2) Hypomagnesemia: Status: Acute (3) Dementia: Status: Chronic Discharge Plan Disposition Patient Disposition: SNF (LEVEL 1) [facility] Condition: Stable Discharge Details Reason For Visit: DEMENTIA Admit Date/Time: 10/13/18 12:10 Admit Provider: Olga Powers Attending Provider: Olga Powers Primary Care Provider: Mel Cantu Hospital Course Hospital Course: Ms Antony is a pleasantly confused 78 year old female with a past medical history of advanced dementia who was living at home with her . Her has been having increasing difficulty taking care of her at home. She has been ambulating at night and sometimes refusing medications for her . She was admitted to the hospital on swing bed level of care while care management worked on placement at a custodial facility. Psychiatry was consulted and recommended trazodone at 1400 to help with evening dementia symptoms. She received Trazodone 50 mg at 1400 the day prior to discharge and was drowsy. The dose was reduced to Trazodone 25 mg the day of discharge to be given at 1400. If she continues to be drowsy, the dose could be decreased to 12.5mg at 1400. She is discharged today to [facility]. She is a Palliative care patient and will be followed at the rehab by palliative care. Home Meds and New Rx's Prescriptions: New trazodone 50 mg Tablet 25 mg PO DAILY@1400 Qty: 0 RF: 0 magnesium chloride [Mag 64] 64 mg Tablet,Delayed Release (Dr/Ec) 64 mg PO DAILY Qty: 0 RF: 0 Continued citalopram 20 mg tablet 20 mg PO DAILY Qty: 90 RF: 4 Prilosec OTC 20 MG tablet,delayed release (DR/EC) 20 mg PO DAILY RF: 0 levothyroxine 50 mcg tablet 88 mcg PO DAILY RF: 0 acetaminophen [Mapap Extra Strength] 500 MG tablet 500 mg PO TID RF: 0 Changed mirtazapine 7.5 mg tablet 15 mg PO QHS Qty: 90 RF: 3 Discharge Instructions Instructions: Dementia (GEN) Activity:: Activity as Tolerated Equipment/Supplies:: No Equipment Needed Diet:: As Tolerated Discharge Orders Discharge Orders: Discharge Order (Routine); Ordered 10/15/18 Ordered By: Malia Slade Exam Narrative Exam Narrative: General: awake and alert, out of bed, not oriented to place or time. HEENT: normocephalic, mucous membranes moist. Respiratory: respirations even and unlabored. Extremities: moves all 4 extremities freely. DS: Data Vitals/I&O Vitals and I&O: Vital Signs Temperature 36.5 C 10/15/18 08:00 Temperature Source Tympanic 10/15/18 08:00 Pulse 85 10/15/18 08:00 Pulse Rhythm Regular 10/15/18 10:09 Respiratory Rate 18 10/15/18 08:00 Respiratory Effort 10/15/18 10:09 Respiratory Depth Normal 10/15/18 10:09 Respiratory Pattern Normal 10/15/18 10:09 Blood Pressure 171/98 H 10/15/18 08:00 Pulse Oximetry 95 10/15/18 08:00 Oxygen Delivery Method Room Air 10/15/18 08:00 Oxygen Flow Rate 0 10/15/18 08:00 Pain Level 0 10/14/18 15:10 Intake & Output 10/14/18 10/14/18 10/15/18 11:59 23:59 11:59 Intake Total 680 / 680 480 / 480 Balance 680 / 680 480 / 480 Intake: Oral 680 / 680 480 / 480 Other: Urine Color Pale Yellow Yellow Urine Appearance Clear Clear Clear Urine Odor None Comment voided x 2 this shift, pt performs own care Urine unable to measure. P Atient voided in the toilet and flushed Voiding Methods Toilet Toilet Toilet Completed studies during hospitalization [Text1]: 10/11/18: RIGHT KNEE: No fracture is identified. There are severe degenerative changes of the patello-femoral joint, with prominent periarticular spurring and severe joint space narrowing. There is a supra patellar effusion. The femoral tibial joints are well maintained and show mild periarticular spurring. There is soft tissue swelling seen anteriorly. IMPRESSION: Severe patello-femoral degenerative changes. [facility] Medical History DJD (degenerative joint disease) (Chronic) Dementia (Chronic) Surgical History Arthroplasty (08/17/14) Cholecystectomy Colectomy (11/28/01) Lobectomy (04/06/09) colonoscopy (02/18/08) colonoscopy (10/03/12) colonoscopy (10/07/13) egd with dilitation (05/18/11) thyroid nodule biopsy (10/07/13) Social History Smoking/Tobacco Use Status: Former Tobacco Use Drug use: Never Substance use type: does not use Household members: spouse Housing: house Do you feel safe in your relationship?: Yes
--- NOTE | 2018-10-15 12:11 | CMDISCH_ITS ---
LACE Index Scoring Tool - Questions: Length of Stay (in days): 4 - 6 Acuity (Admit via E.D.?): Yes E.D. Visits: 1 - Answers: Total Score: 8 Risk of Readmission: Low Risk Care Management Discharge Reason for Hospitalization: dementia Discharge Plan: She is being transferred to [facility] via ambulance for short term rehab and then LTC. is unable to care for her at home. Patient/Family Education Needs: RN to review d/c instructions and medications with staff from [facility]. able to verbalize reason for hospitalization. CM spoke with him this AM to advise him of transfer. Services Needed at Discharge: Physical Therapy, Alf Facility
--- NOTE | 2018-10-16 06:55 | INDS_ITS ---
Date of service: 10/16/18 PT Notes Inpatient Physical Therapy Discharge Summary Dates: 10/16/2018 Dates of Service: 10/14/2018 through 10/16/2018 Contact-guard patient transfers to Referring Doctor: José Miguel Zazueta MD PT Orders: PT CONSULT: Ambulation, eval/treat Precautions: Standard/fall risk Patient Profile/Admitting Diagnosis: 78-year-old female with progressive dementia, with development of atraumatic right knee pain, requiring EMS transferred to ER on 10/11/2018 due to 's inability to assist her. Recent history of increased falls and multiple arthralgias. Patient converted to swing bed status as of 10/13/18 and continues under swing bed level for balance training and therapy discharge planning. PMHX: Surgical History Arthroplasty (08/17/14) Cholecystectomy Colectomy (11/28/01) Lobectomy (04/06/09) colonoscopy (02/18/08) colonoscopy (10/03/12) colonoscopy (10/07/13) egd with dilitation (05/18/11) thyroid nodule biopsy (10/07/13) Per report, arthritis, progressive dementia. Obese. Social History/Home Situation: Lives in a private home with her , who is her main leadership intern. He is now feeling overwhelmed and considering placement. Current Functional Limitations: Requires close supervision to contact-guard with functional ambulation and sit to stand transfers, needs constant reminders to utilize assistive device, and safe performance of all functional movements and transfers. Equipment Owned/DME: Walker and cane, has been admits that she is not good about using either due to her dementia. Subjective: Complains of mild right knee pain after walking 300 feet without an assistive device with the, unable to understand the VAS so cannot rate this. reports that her falls are increasing, she is been sleeping on the main floor of her home in recliner for the past week, due to her choice, not necessarily due to her inability to descend the stairs. However since she is not been going up and down the stairs at their home, he is noted physical decline in her condition and increase in knee pain. Falls are occurring when she is attempting to get out of bed on her own, or when ambulating on uneven terrain in their yard. Objective: General Observation: NT Mental Status: NT Pain: NT ROM: Right Upper Extremity: Grossly WNL Left Upper Extremity: Grossly WNL Right Lower Extremity: Right knee limited to 0 to 90 degrees limited by pain, otherwise grossly WNL Left Lower Extremity: Grossly WNL Strength: Right Upper Extremity: Grossly 4/5 Left Upper Extremity: Grossly 4/5 Right Lower Extremity: Hip flexion 3/5, knee flexion/extension 3+/5 with pain, DF 4/5 with pain, PF 4/5 Left Lower Extremity: Hip flexion 3/5, knee flexion/extension 4+/5, DF 4/5 no pain, PF 4/5 Bed Mobility/Transfers: Rolling CGA Supine to sit CGA Sit to supine CGA Sit to stand SBA Stand to sit SBA Bed to chair SBA Chair to bed SBA Gait: Contact guard assist by this PT with no assistive device, minimal verbal cues required throughout for directional changes and overall safety. No antalgia observed throughout gait activity with pain complaint only upon sitting back down on recliner after gait activity. Balance: Static Sitting: Good Dynamic Sitting: Good Static Standing: Fair Dynamic Standing: Fair Special Tests: Mobility Limitations Standardized Measure [facility] AM-PAC 6 clicks Basic Mobility Inpatient Short Form: Raw Score: 18 CMS Score: 47% disability Assessment: Patient is a 78 year old female referred to physical therapy services with the diagnosis of R knee pain and subsequent gait deficits. Patient presents with clinical signs and symptoms consistent with progressive dementia and right knee OA exacerbation. It would not be unreasonable for orthopedic consultation of the right knee, in the event that injection may be appropriate, or other recommendations for pain control, in the setting that her symptoms do not resolve with time. Impairment level findings: Global weakness, but particularly of the right knee, mobility deficits of the right knee, gait antalgia, poor balance, and poor body awareness due to her dementia confusion. Remaining impairments are contributing to the following functional limitations: AMPAC score of 50% disability, unsteady gait, pain with weightbearing, requires assist with transfers and ambulation, high risk of falls. Goals: Goals X1 week 1. Supine-Sit independent NOT MET 2. Sit-Supine independent NOT MET 3. Sit-Stand independent NOT MET 4. Stand-Sit independent NOT MET 5. Bed-Chair independent NOT MET 6. Chair-Bed independent NOT MET 7. Supervision gait on level surface with use of least restrictive device for at least 300 feet without report of pain nor dyspnea NOT MET 8. Supervision with home exercise program NOT MET 9. Good static and dynamic standing balance/tolerance NOT MET DISCHARGE RECOMMENDATIONS: Patient transfers to today. TREATMENT CODE/TIME: ELIO Thank you very much for this referral. Shayy Lucio PT, DPT, CLT [facility]
== END 2018-10-15 11:30 | disposition skilled nursing facility (03) | DRG 884 ==
PROVIDERS: Admitting Provider Internal Medicine; PCP Family Medicine; Visit Provider Internal Medicine
DX: F03.91 Unspecified dementia, unspecified severity, with behavioral disturbance (principal); Z75.1 Person awaiting admission to adequate facility elsewhere; Z91.83 Wandering in diseases classified elsewhere; Z91.81 History of falling; Z74.2 Need for assistance at home and no other household member able to render care; M25.561 Pain in right knee
CPT/HCPCS: 36415; 97110; 97162; 97166; 97530; 97535; 99239; 99304; 99316; NC; 85049; J1644

== ENCOUNTER 2019-01-10 09:58 | Outpatient (CLI) | payer MEDICARE, OTHER, MEDICAID, SELFPAY ==
--- NOTE | 2019-01-10 10:48 | DI.RAD_ITS ---
SYMPTOM/DIAGNOSIS: CHRONIC COUGH PA AND LATERAL CHEST: Comparison is made with 27 October 2017. The heart is enlarged. Surgical clips are seen posterior to the heart on the left. There is stable scarring at the left diaphragm. There are old left rib fractures. No acute infiltrate, effusion or pulmonary edema is seen. IMPRESSION: Stable scarring at the left lung base. No acute abnormality.
== END 2019-01-10 10:18 ==
PROVIDERS: PCP Family Medicine; Visit Provider Nurse Practitioner Adult Health
DX: R05 Cough (principal); I51.7 Cardiomegaly
CPT/HCPCS: 71046

== ENCOUNTER 2019-03-24 05:29 | Emergency (ER) | payer MEDICARE, OTHER, MEDICAID, SELFPAY ==
--- NOTE | 2019-03-24 05:38 | DI.CT_ITS ---
EXAM: CT HEAD CERVICAL SPINE WO CLINICAL HISTORY: fall, massive cranial contusion/hematoma, altered TECHNIQUE: Noncontrast COMPARISON: HEAD AND CSPINE W/O CONTRAST from 03/26/2016 FINDINGS: Head CT: There is a soft tissue wound at the vertex of the scalp. There is no evidence of skull f racture are intracranial hemorrhage. There is no mass or acute infarct. The sinuses and mastoid air cells appear clear. Cervical spine CT: The exam is somewhat limited by patient motion. 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 No fracture is identified. There are degenerative disc changes and facet degenerative changes. IMPRESSION: Scalp hematoma. No acute abnormality in the cervical spine.
--- NOTE | 2019-03-24 05:40 | W.ED.GENAD ---
Discharge Plan Disposition Patient Disposition: SNF (LEVEL 1) [facility] Condition: Stable Discharge Details Chief Complaint: HeadInjury Clinical Impression: Contusion, Fracture of pedicle of cervical vertebra Primary Care Provider: Mel Cantu ED Provider: Nick Blackwell Home Meds and New Rx's Prescriptions: No Action citalopram 20 mg tablet 20 mg PO DAILY Qty: 90 RF: 4 Prilosec OTC 20 MG tablet,delayed release (DR/EC) 20 mg PO DAILY RF: 0 levothyroxine 50 mcg tablet 88 mcg PO DAILY RF: 0 acetaminophen [Mapap Extra Strength] 500 MG tablet 500 mg PO TID RF: 0 trazodone 50 mg Tablet 25 mg PO DAILY@1400 Qty: 0 RF: 0 magnesium chloride [Mag 64] 64 mg Tablet,Delayed Release (Dr/Ec) 64 mg PO DAILY Qty: 0 RF: 0 mirtazapine 7.5 mg tablet 15 mg PO QHS Qty: 90 RF: 3 Discharge Instructions Instructions: Contusion in Adults (ED) Additional Instructions: There is a significant contusion/hematoma on your scalp. Please use a warm compress to help this respect to absorb. There is a questionable fracture of your C6 pedicle, however there is no associated neurologic deficit and this finding may actually be very old and not new. Recommendations are for further work-up with MRI, and cervical collar for the next 2 weeks, however this is incongruent with the patient's chronic health wishes. If you notice any worsening of your symptoms, or any new symptoms such as vomiting, diarrhea, fever, chills, shortness of breath, chest pain, numbness, weakness, or fainting , please return immediately to the emergency department for reevaluation. Please follow up with your primary care provider as soon as possible for reassessment and reevaluation. As always, it was a pleasure participating in your medical care today. Referrals: Mel Cantu [Primary Care Provider] - Medical Decision Making This is a 71-year-old female with a past medical history of notable dementia who presents today for evaluation of fall. She is an extremely poor historian secondary to her dementia. Health and rehab state that the believe she fell roughly 1 hour prior to arrival in the bathroom. She has a notable contusion hematoma over her frontal scalp. Physical exam is relatively unremarkable aside for this, slightly pinpoint pupils, and mild generalized tenderness over the chest and abdomen without any focal component. Patient is extremely confrontational, and very resistant to any therapy or exam at all. She has a difficult time understanding the current situation. He is refusing any IV cervical collar. She becomes notably aggressive, confrontational and violent when a cervical collar is attempted to be placed. Surprisingly though no pain can be elicited on palpation of the midline cervical spine. At this time we will get a CT scan of the head, neck, and secondary to her inability to provide adequate historical component chest abdomen pelvis as well. 6:[address] imaging is returned, CT scan of the head is negative for acute intracranial bleed or process, notable hematoma is present, of note report suspect laceration however there is no laceration present. There is also questionable age-indeterminate lucency versus fracture of the C6 lamina/pedicle, on the left. Repeat exam continues to demonstrate no tenderness in this area. I did discuss the situation with the family, and even if there was a surgical emergency family has made it clear that the patient's wishes to have nothing done and to allow things to progress naturally. We did again attempt to place a c-collar, and the patient again became notably confrontational, and absolutely refused both physically and verbally. Additionally the patient has had an aspiration risk with her dementia if a c-collar is in place. We weigh the risks and benefits and through shared decision making process with family will hold off. I did review the case with orthopedics Dr. Armstrong and he has had no other additional recommendations at this time understanding the patient's current clinical scenario, family wishes, and current chronic renal status. Patient will be sent back to her facility for continued management. Repeat exam continues to demonstrate normal movement of all extremities and no signs of cord compression or neurologic deficit. I have extensively reviewed the treatment plan and discharge instructions with the patient and their family. I have addressed all patient concerns at this time. The patient and family was made aware of what symptoms to monitor for that would warrant a return to the emergency department. Discussed the plan with the patient and family, they demonstrate verbal understanding and agreement with our assessment and plan at this time. FINDINGS: Brain: Mild volume loss No hemorrhage. Unremarkable white matter. No mass effect. Ventricles: Normal. No ventriculomegaly. Bones/joints: Unremarkable. No acute fracture. Sinuses: Visualized sinuses are unremarkable. No fluid levels. Mastoid air cells: Visualized mastoid air cells are well aerated. Soft tissues: Large right-sided area of scalp swelling with frontoparietal convexity scalp laceration/scalp hematoma IMPRESSION: No acute intracranial hemorrhage noted. Large right-sided area of scalp swelling/hematoma and suspected laceration FINDINGS: Loss of cervical lordosis is presumably on a degenerative basis. There is a lucency/fracture through the C6 lamina/pedicle on the left of indeterminate age. Bifid spinous process noted Central canal and foraminal stenosis most pronounced at C5-C6 No prevertebral swelling. The craniovertebral junction is maintained. Mild interstitial thickening at the right lung apex IMPRESSION: Age-indeterminate lucency/fracture in the left facets/lamina at C6. Comparison with prior images would be helpful Otherwise, no acute abnormality in the cervical spine Dictated and Authenticated by: Nathan Deal MD. Ordering:DESTINY Romero MD FINDINGS: Lungs: Septal thickening and groundglass infiltrates compatible with mild interstitial edema. Pleural space: Small left-sided pleural effusion and associated atelectasis Heart: Unremarkable. No cardiomegaly. No pericardial effusion. Aorta: Unremarkable. No aortic aneurysm. Lymph nodes: Unremarkable. No enlarged lymph nodes. Bones/joints: Unremarkable. No acute fracture. Soft tissues: Unremarkable. IMPRESSION: No acute traumatic findings Septal thickening and groundglass infiltrates compatible with mild interstitial edema. FINDINGS: Liver: Normal. No mass. Gallbladder and bile ducts: The patient is status post cholecystectomy. Pancreas: Normal. No ductal dilation. Spleen: Normal. No splenomegaly. Adrenals: Normal. No mass. Kidneys and ureters: Normal. No hydronephrosis. Stomach and bowel: Unremarkable. No obstruction. No mucosal thickening. Appendix: No evidence of appendicitis. Intraperitoneal space: Unremarkable. No free air. No significant fluid collection. Vasculature: Unremarkable. No abdominal aortic aneurysm. Lymph nodes: Unremarkable. No enlarged lymph nodes. Bladder: Unremarkable as visualized. Reproductive: Unremarkable as visualized. Bones/joints: Total left hip replacement obscures portions of the left hemipelvis. Soft tissues: Unremarkable. IMPRESSION: No acute traumatic findings Thank you for allowing us to participate in the care of your patient. Dictated and Authenticated by: Vaibhav Schneider MD 03/24/2019 6:32 AM Eastern Time ([place] & [place]) HPI General Date/Time Provider Initiated Documentation: 03/24/19 05:38. HPI Narrative: This is a 79-year-old female with past medical history of dementia, and degenerative disc disease who presents today from health and rehab for evaluation of fall. Roughly 1 hour ago she was found to have fallen in the bathroom, she did hit her head, notable contusion was noted over her scalp. History is notably difficult secondary to her severe dementia, and she cannot give any further historical component. EMS to bring the patient over, and the facility to was unaware of any additional historical component. Patient is not on any blood thinners. No other complaints at this time. Related Data Home Medications Medication Instructions Recorded Confirmed Prilosec OTC 20 mg PO DAILY 08/29/13 10/13/18 acetaminophen [Mapap Extra 500 mg PO TID 06/27/17 10/13/18 Strength] levothyroxine 50 mcg tablet 88 mcg PO DAILY tab 02/06/18 10/13/18 citalopram 20 mg tablet 20 mg PO DAILY #90 tab-cap 03/29/18 10/13/18 magnesium chloride [Mag 64] 64 mg PO DAILY #0 tab 10/15/18 mirtazapine 15 mg PO QHS #90 tab 10/15/18 10/13/18 trazodone 25 mg PO DAILY@1400 #0 tab 10/15/18 Previous Rx's Medication Instructions Recorded citalopram 20 mg tablet 20 mg PO DAILY #90 tab-cap 03/29/18 magnesium chloride [Mag 64] 64 mg PO DAILY #0 tab 10/15/18 mirtazapine 15 mg PO QHS #90 tab 10/15/18 trazodone 25 mg PO DAILY@1400 #0 tab 10/15/18 Allergies Allergy/AdvReac Type Severity Reaction Status Date / Time codeine Allergy Unknown Unverified 10/27/17 11:20 lisinopril Allergy Unknown Unverified 10/27/17 11:20 NSAIDS (Non-Steroidal Allergy Unknown Unverified 10/27/17 11:20 Anti-Inflamma sertraline Allergy Unknown Unverified 10/27/17 11:20 simvastatin AdvReac Unknown Unverified 10/27/17 11:20 hydrocodone-acetominophen AdvReac Unknown Uncoded 10/27/17 11:20 General MANOJ: 4 Review of Systems All systems reviewed & are unremarkable except as noted in HPI and below PFSH Medical History (Updated 10/15/18 @ 11:28 by Malia Slade NP) Dementia (Chronic) DJD (degenerative joint disease) (Chronic) Surgical History Arthroplasty (08/17/14) left hip Cholecystectomy 2004 Colectomy (11/28/01) CA, sigmoid colonoscopy (02/18/08) ? 06/01/14 colonoscopy (10/03/12) ? 06/01/14 colonoscopy (10/07/13) ? 06/01/14 egd with dilitation (05/18/11) ? 06/01/14 Lobectomy (04/06/09) left lower lobe thyroid nodule biopsy (10/07/13) Social History Smoking/Tobacco Use Status: Former Tobacco Use Drug use: Never Substance use type: does not use Household members: spouse Housing: house Do you feel safe in your relationship?: Yes Exam Narrative Exam Narrative: 1.Const: Well-nourished, Well-developed, appearing stated age 2.Eyes: PERRL, no conjunctival injection, and symmetrical lids. 3.ENT: Atraumatic external nose and ears. Notable contusion and swelling over the frontal aspect of the skull. Significant hematomas noted. Moist MM. Neck: Symmetric, trachea midline, No thyromegaly. There is no evidence of raccoon eyes, islas sign, CSF rhinorrhea, mastoid tenderness, cranial crepitus, hemotympanum, exophthalmos, or hyphema. Patient demonstrates intact dentition with no signs of tooth avulsion or fracture, no signs of jaw deformity, no evidence of a LeFort's fracture, with an intact palate, nose and orbital region. There is no evidence of a nasal septal hematoma. No proptosis. Jaw closes symmetrically. Airway is clear. 4.CVS: Regular rate and rhythm, Normal s1 and s2. No murmurs, carotid bruits, rubs, or gallops. Radial pulses 2+ bilaterally and symmetric. Dorsalis pedis pulses 2+ bilaterally and symmetric. 2+ capillary refill. No evidence of distant heart sounds. No extremity edema. No evidence of gross hemorrhage. 5.RESP: Airway clear, no obstructions. No abrasions or ecchymosis. Chest movement symmetric with respirations. Generalized reproducible chest wall tenderness throughout. Trachea midline. No crepitus. No step offs. No paradoxical movements. Lungs are clear to auscultation bilaterally. No rales, rhonchi, wheezing or stridor. Breath sound symmetric. No Sucking chest wounds. No clinical evidence of significant chest trauma. 6.GI: Soft,nondistended, No hepatosplenomegaly. No guarding or rebound. Generalized tenderness throughout the abdomen, however true pain evaluation is difficult secondary to the patient's mental status and dementia 7.MSK: No gross deformities or discolorations or lesions. Aside for the lesion noted on the skull. Tolerates full range of motion of extremities without tenderness. All compartments of upper and lower extremities are soft with no tenderness. Vascular exam demonstrates brisk capillary refill and intact pulses in all extremities. Pelvic exam demonstrates a stable pelvis, nontender to lateral compression and palpation of symphysis pubis.. No clinical evidence of significant musculoskeletal trauma. No focal isolated tenderness over the cervical or thoracic spine. 8.Skin: Warm, Dry. No rashes or lesions. 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 Sensation grossly intact, no focal neurologic deficits. 10.Psych: (AAO) x0, at baseline.
[2019-03-24 05:43] VITALS: BP 164/92; PULSE 93; RESP 14; TEMP 36.8; O2SAT 92
--- NOTE | 2019-03-24 06:23 | NUR.NOTE ---
Nursing Note:Pt to diagnostic imaging with this RN accompanying pt for lift help. Pt tolerated procedure well. Pt back to room 1 of ED without incident. Pt's spouse in room awaiting her return. Pt remains asleep, wakes easily to voice.
--- NOTE | 2019-03-24 06:29 | DI.VRAD_ITS ---
PROCEDURE INFORMATION: Exam: CT Head Without Contrast Exam date and time: 03/24/2019 5:40 AM Age: 79 years old Clinical history: Injury or trauma; Initial encounter; Blunt trauma (contusions or hematomas); Consciousness not specified; Injury date: 03/24/19; Injury details: Fall in bathroom at [facility]; Patient HX: Fall, massive cranial contusion/hematome TECHNIQUE: Imaging protocol: Computed tomography of the head without contrast. Radiation optimization: All CT scans at this facility use at least one of these dose optimization techniques: automated exposure control; mA and/or kV adjustment per patient size (includes targeted exams where dose is matched to clinical indication); or iterative reconstruction. COMPARISON: No relevant prior studies available. FINDINGS: Brain: Mild volume loss No hemorrhage. Unremarkable white matter. No mass effect. Ventricles: Normal. No ventriculomegaly. Bones/joints: Unremarkable. No acute fracture. Sinuses: Visualized sinuses are unremarkable. No fluid levels. Mastoid air cells: Visualized mastoid air cells are well aerated. Soft tissues: Large right-sided area of scalp swelling with frontoparietal convexity scalp laceration/scalp hematoma IMPRESSION: No acute intracranial hemorrhage noted. Large right-sided area of scalp swelling/hematoma and suspected laceration PROCEDURE INFORMATION: Exam: CT Cervical Spine Without Contrast Exam date and time: 03/24/2019 5:40 AM Age: 79 years old Clinical history: Injury or trauma; Initial encounter; Blunt trauma (contusions or hematomas); Consciousness not specified; Injury date: 03/24/19; Injury details: Fall in bathroom at [facility]; Patient HX: Fall, massive cranial contusion/hematome TECHNIQUE: Imaging protocol: Computed tomography images of the cervical spine without contrast. Radiation optimization: All CT scans at this facility use at least one of these dose optimization techniques: automated exposure control; mA and/or kV adjustment per patient size (includes targeted exams where dose is matched to clinical indication); or iterative reconstruction. COMPARISON: No relevant prior studies available. FINDINGS: Loss of cervical lordosis is presumably on a degenerative basis. There is a lucency/fracture through the C6 lamina/pedicle on the left of indeterminate age. Bifid spinous process noted Central canal and foraminal stenosis most pronounced at C5-C6 No prevertebral swelling. The craniovertebral junction is maintained. Mild interstitial thickening at the right lung apex IMPRESSION: Age-indeterminate lucency/fracture in the left facets/lamina at C6. Comparison with prior images would be helpful Otherwise, no acute abnormality in the cervical spine Dictated and Authenticated by: Nathan Deal MD. Ordering:DESTINY Romero MD
--- NOTE | 2019-03-24 06:30 | DI.CT_ITS ---
EXAM: CT CHEST/ABD/PEL WO CLINICAL HISTORY: fall, altered, generalized chest and back tenderness TECHNIQUE: Noncontrast COMPARISON: CHEST 2 VIEWS PA,LAT from 08/21/2011 NECK WITHOUT CONTRAST from 08/21/2013 PELVIC/LOWER ABD WITHOUT CONT from 03/26/2016 XR CHEST 2V PA LATERAL from 01/10/2019 FINDINGS: CHEST CT: There is a small left pleural effusion versus pleural thickening. There is left atrial enl argement. No pericardial effusion is seen. The lungs are not well evaluated due to respiratory motio n. There are bilateral pulmonary infiltrates. There is no evidence of pneumothorax. No thoracic sp ine fracture is seen. There is no gross evidence of an acute rib fracture. ABDOMEN AND PELVIC CT: Patient is status post cholecystectomy. Liver, spleen, pancreas, kidneys and adrenals are unremarkable. There is no bowel dilatation or wall thickening. There is no evidence of free air or free fluid. There is a left hip prosthesis, which appear partially obscures the bladder . There is some artifact over the upper abdomen due to the patient's hands being positioned over the abdomen. There is some respiratory motion in the mid portion of the scan. The uterus, ovaries and bladder are unremarkable as visualized. No hip or spine fracture is seen. There are severe degenera tive changes of the right hip. Degenerative changes are seen throughout the spine. The aorta shows calcification and is normal in diameter. IMPRESSION: No acute posttraumatic abnormality in the chest, abdomen or pelvis. There are bilateral pulmonary in filtrates.
--- NOTE | 2019-03-24 06:32 | DI.VRAD_ITS ---
PROCEDURE INFORMATION: Exam: CT Chest Without Contrast Exam date and time: 03/24/2019 6:10 AM Age: 79 years old Clinical history: Injury or trauma; Initial encounter; Blunt trauma (contusions or hematomas); Injury date: 03/24/19; Injury details: Fall, altered, generalized chest and back tenderness TECHNIQUE: Imaging protocol: Computed tomography of the chest without contrast. Radiation optimization: All CT scans at this facility use at least one of these dose optimization techniques: automated exposure control; mA and/or kV adjustment per patient size (includes targeted exams where dose is matched to clinical indication); or iterative reconstruction. COMPARISON: CT PELVIC/LOWER ABD WITHOUT CONT 03/26/2016 6:51 AM FINDINGS: Lungs: Septal thickening and groundglass infiltrates compatible with mild interstitial edema. Pleural space: Small left-sided pleural effusion and associated atelectasis Heart: Unremarkable. No cardiomegaly. No pericardial effusion. Aorta: Unremarkable. No aortic aneurysm. Lymph nodes: Unremarkable. No enlarged lymph nodes. Bones/joints: Unremarkable. No acute fracture. Soft tissues: Unremarkable. IMPRESSION: No acute traumatic findings Septal thickening and groundglass infiltrates compatible with mild interstitial edema. PROCEDURE INFORMATION: Exam: CT Abdomen And Pelvis Without Contrast Exam date and time: 03/24/2019 6:10 AM Age: 79 years old Clinical history: Injury or trauma; Initial encounter; Blunt trauma (contusions or hematomas); Injury date: 03/24/19; Injury details: Fall, altered, generalized chest and back tenderness TECHNIQUE: Imaging protocol: Computed tomography of the abdomen and pelvis without contrast. Radiation optimization: All CT scans at this facility use at least one of these dose optimization techniques: automated exposure control; mA and/or kV adjustment per patient size (includes targeted exams where dose is matched to clinical indication); or iterative reconstruction. COMPARISON: CT PELVIC/LOWER ABD WITHOUT CONT 03/26/2016 6:51 AM FINDINGS: Liver: Normal. No mass. Gallbladder and bile ducts: The patient is status post cholecystectomy. Pancreas: Normal. No ductal dilation. Spleen: Normal. No splenomegaly. Adrenals: Normal. No mass. Kidneys and ureters: Normal. No hydronephrosis. Stomach and bowel: Unremarkable. No obstruction. No mucosal thickening. Appendix: No evidence of appendicitis. Intraperitoneal space: Unremarkable. No free air. No significant fluid collection. Vasculature: Unremarkable. No abdominal aortic aneurysm. Lymph nodes: Unremarkable. No enlarged lymph nodes. Bladder: Unremarkable as visualized. Reproductive: Unremarkable as visualized. Bones/joints: Total left hip replacement obscures portions of the left hemipelvis. Soft tissues: Unremarkable. IMPRESSION: No acute traumatic findings Dictated and Authenticated by: Vaibhav Schneider MD. Ordering:DESTINY Romero MD
[2019-03-24 07:01] VITALS: BP 155/75; PULSE 75; RESP 12; TEMP 36.8; O2SAT 93
== END 2019-03-24 07:14 | disposition skilled nursing facility (03) ==
PROVIDERS: Emergency Provider Student in an Organized Health Care Education/Training Program; PCP Family Medicine
DX: S00.03XA Contusion of scalp, initial encounter (principal); S12.591A Other nondisplaced fracture of sixth cervical vertebra, initial encounter for closed fracture; R91.1 Solitary pulmonary nodule; F03.90 Unspecified dementia, unspecified severity, without behavioral disturbance, psychotic disturbance, mood disturbance, and anxiety; W01.0XXA Fall on same level from slipping, tripping and stumbling without subsequent striking against object, initial encounter
CPT/HCPCS: 36415; 71250; 99285; 70450; 72125; 74176; 99284

== ENCOUNTER 2019-04-22 10:02 | Outpatient (REF) | payer MEDICARE, OTHER, MEDICAID, SELFPAY ==
[2019-04-22 13:14] LABS: BUN 17 mg/dL (7-18); CREATININE 1.22 mg/dL (0.55-1.02); Calcium 7.8 mg/dL (8.5-10.1); Chloride 105 mmol/L (98-107); Estimated GFR 42.63 (mL/min/1.73m2); Glucose 90 mg/dL (74-106); Potassium 4.5 mmol/L (3.5-5.1); Sodium 143 mmol/L (136-145)
== END 2019-04-22 10:22 ==
LOC: LBO 10:02
PROVIDERS: PCP Family Medicine; Visit Provider Nurse Practitioner Adult Health
DX: R05 Cough (principal); E03.9 Hypothyroidism, unspecified; F33.9 Major depressive disorder, recurrent, unspecified
CPT/HCPCS: 80048

== ENCOUNTER 2019-04-25 23:01 | Outpatient (REF) | payer MEDICARE, OTHER, MEDICAID, SELFPAY ==
[2019-04-25 23:12] LABS: Bilirubin Negative (Negative); Blood Negative (Negative); Glucose Negative (Negative); Ketones Negative (Negative); Leukocyte Esterase Small (Negative); Nitrite Negative (Negative); Urobilinogen 0.2 EU/dL (Up TO 0.2); pH 5.5 (5-8)
[2019-04-25 23:16] LABS: Clarity Sl Cloudy (Clear)
[2019-04-25 23:17] LABS: Bacteria Moderate HPF (Negative); C & S Indicated? C&S Done As Ordered; Casts Negative LPF (Negative); Crystals Negative HPF (Negative); Epithelial Cells Moderate HPF (Negative); Mucus Negative (Negative); RBC 0-2 HPF (0-2); WBC >50 HPF (0-5)
== END 2019-04-25 23:21 ==
LOC: LBN 23:01
PROVIDERS: PCP Family Medicine; Visit Provider Nurse Practitioner Adult Health
DX: R31.9 Hematuria, unspecified (principal)
CPT/HCPCS: 81003; 81015; 87086

== ENCOUNTER 2019-06-03 10:10 | Outpatient (CLI) | payer MEDICARE, OTHER, MEDICAID, SELFPAY ==
[2019-06-03 11:44] LABS: Abs Immature Grans 0.01 k/cumm (0.0-0.09); Absolute Basophil Count 0.03 k/cumm (0.0-0.2); Absolute Eosinophil Count 0.22 k/cumm (0.0-0.7); Absolute Lymphocyte Count 0.79 k/cumm (1.2-3.4); Absolute Monocyte Count 0.54 k/cumm (0.11-0.7); Absolute Neutrophil Count 6.05 k/cumm (1.2-6.7); Basophils % 0.4; Eosinophils % 2.9; HCT 34.6 % (36.0-46.0); HGB 10.5 g/dL (12.0-15.5); Immature Grans % 0.1 %; Lymphocytes % 10.3; Mean Corp. HGB Concentration 30.3 g/dL (32.0-36.0); Mean Corpuscular Hemoglobin 27.5 pg (27.0-33.0); Mean Corpuscular Volume 90.6 fL (80-95); Mean Platelet Volume 10.5 fL (8.0-11.0); Monocytes % 7.1; Neutrophils % 79.2; Platelet Count 328 x1000/uL (130-400); RBC 3.82 m/cumm (4.00-5.20); RBC Distribution Width 14.4 % (11.7-14.6); White Blood Cell Count 7.64 k/cumm (4.4-10.8)
[2019-06-03 12:03] LABS: Anion Gap 8.4 mmol/L (3-11); BUN 18 mg/dL (7-18); CO2 27.6 mmol/L (21.0-32.0); CREATININE 1.31 mg/dL (0.55-1.02); Calcium 7.9 mg/dL (8.5-10.1); Chloride 103 mmol/L (98-107); Estimated GFR 39.27 (mL/min/1.73m2); Glucose 101 mg/dL (74-106); Sodium 139 mmol/L (136-145)
== END 2019-06-03 10:30 ==
PROVIDERS: PCP Family Medicine; Visit Provider Nurse Practitioner Adult Health
DX: R05 Cough (principal); M15.9 Polyosteoarthritis, unspecified; M62.81 Muscle weakness (generalized)
CPT/HCPCS: 80048; 85025

== ENCOUNTER 2019-08-12 12:51 | Outpatient (REF) | payer MEDICARE, OTHER, MEDICAID, SELFPAY ==
[2019-08-13 15:48] LABS: COVID-19 RT-PCR Result Negative (Negative)
== END 2019-08-12 13:11 ==
LOC: LBN 12:51
PROVIDERS: PCP Family Medicine; Visit Provider Nurse Practitioner Adult Health
DX: Z03.818 Encounter for observation for suspected exposure to other biological agents ruled out (principal)
CPT/HCPCS: U0003

== ENCOUNTER 2020-02-02 08:30 | Emergency (ER) | payer MEDICARE, MEDICAID, SELFPAY ==
[2020-02-02 08:30] VITALS: BP 133/103; PULSE 66; RESP 22; O2SAT 91
--- NOTE | 2020-02-02 08:36 | W.ED.GENAD ---
Discharge Plan Disposition Patient Disposition: SNF (LEVEL 1) [facility] Condition: Stable Discharge Details Clinical Impression: Fall, Right wrist pain, Contusion of head Primary Care Provider: Mel Cantu ED Provider: Alondra Benson Home Meds and New Rx's Prescriptions: Continued omeprazole magnesium [Prilosec OTC] 20 MG tablet,delayed release (DR/EC) 20 mg PO DAILY RF: 0 acetaminophen [Mapap Extra Strength] 500 MG tablet 500 mg PO TID RF: 0 acetaminophen 325 mg Tablet 650 mg PO Q6H PRN PRNRF: 0 citalopram 10 mg Tablet 30 mg PO DAILY RF: 0 guaifenesin 100 mg/5 mL Liquid 200 mg PO Q4H PRNRF: 0 levothyroxine 88 mcg Tablet 88 mcg PO DAILY RF: 0 magnesium hydroxide [Milk of Magnesia] 400 mg/5 mL Suspension 30 ml PO DAILY PRNRF: 0 bisacodyl [Dulcolax (bisacodyl)] 10 mg Suppository 10 mg HI DAILY PRNRF: 0 furosemide 20 mg Tablet 20 mg PO Q OTHER DAY RF: 0 gabapentin 100 mg Capsule 100 mg PO TID RF: 0 Discharge Instructions Instructions: Contusion in Adults (ED) Additional Instructions: Our exam was limited on Yoli today because of her dementia. I am concerned that she may have a right wrist fracture. However, she will not keep a splint on and is not cooperative for x-ray. She is self splinting and using her left hand, please allow her to do this. Continue with Tylenol. Rest, ice, elevation when patient is agreeable. Yoli also has swelling to the back of her head. I spoke with José Miguel, her son, who agrees to not undergo CT imaging for potential intracranial bleed. Based on patients and family wishes, please continue to keep safe and comfortable. If she need emergent evaluation once again please send her back to the ED. Follow up with primary care in one week. Referrals: Mel Cantu [Primary Care Provider] - Medical Decision Making Patient is a pleasantly confused 79-year-old female presenting today after fall. Times an unwitnessed fall. Patient [facility] the [facility]. She was found on her back endorsing bilateral wrist pain. Patient is unable to provide any history. Patient is reported to be at her baseline as patient is very confused. She is non-participatory in my exam and fights this will try to do most basic of tasks with her. Patient is a DNR/DNI and has her son Sylvain listed as her next of kin. Exam, patient has a area of swelling on the posterior aspect of her head. No break in the skin. No evidence to suggest a cranial fracture. My neurologic exam as well as looking for exam like hemotympanum was very limited as the patient was refusing this. She refused to listen to all lung martin. She does have swelling on the dorsal radial side of the right wrist as well as limited range of motion. I am able to distract her to some degree and evaluate the left more and able to get full range of motion. She does have a small area of ecchymosis on the dorsal aspect of the left hand but this does not appear to be acute and with distraction is nontender. I spoke with the patient son, Kenn, about the patient's wishes. I am attempting to get x-rays of the bilateral wrist this is reported to be uncomfortable per [facility]. Kenn and I discussed CT imaging of the patient's head. Without sedating the patient I will be unsuccessful at obtaining imaging. She is refusing any type of evaluation and just keeps reporting that she would like to leave. Kenn and I discussed risk/benefits associated with this. We did discuss the potential for intracranial hemorrhage. And she would not move forward with any type of neurosurgical evaluation or intervention he does not feel that CT is warranted at this time based on her previously expressed wishes. He is aware of the risk associated with not moving forward. We are unable to obtain x-rays. We tried multiple techniques to try to get her to agree with this. I am concerned she may have a distal right radius fracture. However, I would have to sedate her for further evaluation and again, I do not feel that this will change the patient's long-term outcome particularly as she is unlikely to keep on any splinting device. We did attempt to place a universal wrist splint without success. However, we will send this to the [facility] as it sounds that she is more agreeable with staff that she knows in that location. Encourage rest, ice, elevation. They will return with any new or worsening symptoms. I did discuss work-up and my concerns thus far with patient's son once again. All of his questions and concerns were addressed and he is in agreement with this plan. Patient transported back by [facility] staff. HPI General Mode of arrival: EMS. Date/Time Provider Initiated Documentation: 02/02/20 08:36. Limitations to Documentation: altered mental status (hx dementia). Information obtained by: family (spoke with son over phone) and RN notes reviewed. HPI Narrative: Patient is a very confused 79-year-old female who resides at [facility]. She suffered an unwitnessed fall today. Was endorsing bilateral wrist pain. Was noted to have a head contusion by EMS. Patient is unable to relay what occurred. Is reported to be at baseline per nursing staff at [facility] as well as here. Related Data Home Medications Medication Instructions Recorded Confirmed omeprazole magnesium [Prilosec OTC] 20 mg PO DAILY 08/29/13 02/02/20 acetaminophen [Mapap Extra 500 mg PO TID 06/27/17 02/02/20 Strength] acetaminophen 650 mg PO Q6H PRN PRN 02/02/20 02/02/20 bisacodyl [Dulcolax (bisacodyl)] 10 mg HI DAILY PRN 02/02/20 02/02/20 citalopram 30 mg PO DAILY 02/02/20 02/02/20 furosemide 20 mg PO Q OTHER DAY 02/02/20 02/02/20 gabapentin 100 mg PO TID 02/02/20 02/02/20 guaifenesin 200 mg PO Q4H PRN 02/02/20 02/02/20 levothyroxine 88 mcg PO DAILY 02/02/20 02/02/20 magnesium hydroxide [Milk of 30 ml PO DAILY PRN 02/02/20 02/02/20 Magnesia] Allergies Allergy/AdvReac Type Severity Reaction Status Date / Time codeine Allergy Unknown Unverified 02/02/20 08:47 lisinopril Allergy Unknown Unverified 02/02/20 08:47 NSAIDS (Non-Steroidal Allergy Unknown Unverified 02/02/20 08:47 Anti-Inflamma sertraline Allergy Unknown Unverified 02/02/20 08:47 simvastatin AdvReac Unknown Unverified 02/02/20 08:47 hydrocodone-acetominophen AdvReac Unknown Uncoded 02/02/20 08:47 General Stated Complaint: Trauma MANOJ: 3 Review of Systems Unobtainable due to mental status [facility] Medical History Dementia DJD (degenerative joint disease) Surgical History Arthroplasty (08/17/14) left hip Cholecystectomy 2004 Colectomy (11/28/01) CA, sigmoid colonoscopy (02/18/08) ? 06/01/14 colonoscopy (10/03/12) ? 06/01/14 colonoscopy (10/07/13) ? 06/01/14 egd with dilitation (05/18/11) ? 06/01/14 Lobectomy (04/06/09) left lower lobe thyroid nodule biopsy (10/07/13) Social History Smoking/Tobacco Use Status: Former Tobacco Use Drug use: Never Substance use type: does not use Household members: spouse Housing: house Do you feel safe in your relationship?: Yes Additional Social history: Resident @ [facility]- unable to answer questions d/t baseline dementia Exam Const General: uncooperative, healthy appearing, comfortable and no acute distress Nutritional Appearance: average body habitus and well nourished Orientation: alert, awake and not oriented x3 HENMT Head: normal to inspection Head images: 1. area of contusion. No fracture on palpation, no pain noted. No laceration Neck Neck: normal visual inspection, full ROM and no meningeal signs Chest Chest: no localized rib tenderness Resp Effort & Inspection: normal respiratory effort, able to speak in complete sentences and no respiratory distress Cardio Rate: regular rate Rhythm: regular rhythm GI Palpation: soft and nontender Skin General skin exam: no rashes or lesions noted Neuro General: patient alert and patient awake Cognition: normal cognition Speech: speech normal Gait: normal gait Extrem Right upper extremity: normal capillary refill, elbow/forearm Details: normal to inspection, normal ROM and distal pulses intact; no tenderness, no swelling and no ecchymosis, wrist Details: swelling Location: of the dorsal wrist (radial side), normal vascular exam and radial pulse present; ROM abnormal (guarding, will not allow for any movement), no unusual warmth, no abrasions, no lacerations, no ecchymosis, no crepitus and no deformity and hand Details: normal to inspection, normal capillary refill, neuromotor exam normal, tendon exam normal (patient is moving all of her digits without difficulty), normal ROM of fingers and no swelling; neurosensory exam abnormal (unable to assess, exam is very limited) and no tenderness; abnormal to inspection Left upper extremity: normal to inspection, full ROM (with distraction, patient will allow full passive ROM), normal capillary refill and no joint enlargement Right lower extremity: normal to inspection Left lower extremity: normal to inspection Psych Appearance: grossly normal and well kempt Speech and Movement: agitated (patient is baseline ) Course Vital Signs Vital signs: Vital Signs Pulse 66 02/02/20 08:30 Respiratory Rate 22 02/02/20 08:30 Blood Pressure 133/103 H 02/02/20 08:30 Pulse Oximetry 91 L 02/02/20 08:30 Pulse 66 02/02/20 08:30 Respiratory Rate 22 02/02/20 08:30 Blood Pressure 133/103 H 02/02/20 08:30 Blood Pressure Position Supine 02/02/20 08:30 Pulse Oximetry 91 L 02/02/20 08:30 Oxygen Delivery Method Room Air 02/02/20 08:30 Oxygen Flow Rate 0 02/02/20 08:30
== END 2020-02-02 09:41 | disposition skilled nursing facility (03) ==
PROVIDERS: Emergency Provider Physician Assistant; PCP Family Medicine
DX: S00.03XA Contusion of scalp, initial encounter (principal); M25.531 Pain in right wrist; W19.XXXA Unspecified fall, initial encounter; F03.91 Unspecified dementia, unspecified severity, with behavioral disturbance
CPT/HCPCS: 99283; L3908

== ENCOUNTER 2020-02-17 16:22 | Outpatient (REF) | payer MEDICARE, MEDICAID, SELFPAY ==
[2020-02-18 17:26] LABS: COVID-19 RT-PCR Result Not Detected ((See Note))
== END 2020-02-17 16:42 ==
LOC: LBN 16:22
PROVIDERS: PCP Family Medicine; Visit Provider Nurse Practitioner Adult Health
DX: Z11.59 Encounter for screening for other viral diseases (principal)
CPT/HCPCS: U0003

== ENCOUNTER 2020-08-24 11:57 | Outpatient (REF) | payer MEDICARE, MEDICAID, SELFPAY ==
[2020-08-24 12:51] LABS: Bilirubin Negative (Negative); Blood Trace-intact (Negative); Clarity Sl Cloudy (Clear); Glucose Negative (Negative); Ketones Negative (Negative); Leukocyte Esterase Trace (Negative); Nitrite Positive (Negative); Urobilinogen 0.2 EU/dL (Up TO 0.2); pH 6.5 (5-8)
[2020-08-24 12:57] LABS: Bacteria Many HPF (Negative); Epithelial Cells Many HPF (Negative)
[2020-08-24 12:58] LABS: C & S Indicated? C&S Done As Ordered; Casts Negative LPF (Negative); Crystals Negative HPF (Negative); Mucus Trace (Negative)
== END 2020-08-24 11:58 | disposition home or self-care (01) ==
LOC: LBN 11:57
PROVIDERS: PCP Family Medicine; Visit Provider Family Medicine
DX: N39.0 Urinary tract infection, site not specified (principal)
CPT/HCPCS: 87077; 81003; 81015; 87086; 87186

== ENCOUNTER 2021-04-27 12:41 | Inpatient (IN) | payer MEDICARE, MEDICAID, SELFPAY ==
[2021-04-27] VITALS (48 sets, daily range): BP systolic 102–129; BP diastolic 64–96; PULSE 63–93; RESP 7–23; TEMP 36.4–36.6; O2SAT 90–96
--- NOTE | 2021-04-27 13:30 | DI.CT_ITS ---
Exam(s) CT HEAD WO EXAM: CT HEAD WO CLINICAL HISTORY: mental status change. TECHNIQUE: Imaging Protocol: Axial computed tomography images with coronal and sagittal reformatted images were created and reviewed COMPARISON: CT CT HEAD CERVICAL SPINE WO from 03/24/2019 FINDINGS: There are no skull fractures nor fluid in the visualized paranasal sinuses. There is no evidence of intracranial hemorrhage, mass effect, or shift of midline structures. There are no extra-axial fluid collections. The ventricles are not enlarged or shifted and there is no blo od within the ventricular system nor within the basal cisterns. Is abundant bilateral periventricular hypodensity consistent with chronic small vessel ischemic roach es but no obvious acute infarct evident. IMPRESSION: No acute intracranial findings on this noninfused CT scan of the brain. Chronic small vessel ischemic white matter changes again noted. No evidence of intracranial hemorrhage. RADIATION DOSE DELIVERED: 881.98mGy.cm Total DLP DATA REPOSITORY: All CT scans at this facility are submitted to the National Radiology Data Registry (NRDR) Dose Index Registry (DIR) with the [employer] (A[employer]). RADIATION OPTIMIZATION: All CT scans at this facility use at least one of these dose optimization te chniques: automated exposure control; mA and/or kV adjustment per patient size (includes targeted exa ms where dose is matched to clinical indication); or iterative reconstruction.
--- NOTE | 2021-04-27 13:30 | RT.EKG_ITS ---
APPROVED REPORT Exam: Resting ECG Reason for Exam: [facility] Patient Location: E HR:79 bpm ECG Measurements Heart Rate 79 AXIS IA 50 P 0 QRSd 79 QRS 81 QT [id number] T 36 QTc 0 Conclusion Sinus rhythm...normal P axis, V-rate 60- 99 Prominent P waves, nondiagnostic...wide/notched/biphasic P waves
[2021-04-27 13:50] LABS: Source Nasal/Nares
--- NOTE | 2021-04-27 14:07 | W.ED.GENAD ---
Discharge Plan Disposition Patient Disposition: [facility] INPATIENT Condition: Improving Discharge Details Clinical Impression: Acute dehydration, Altered mental status Admit Date/Time: 04/27/21 19:41 Admit Provider: Jean Johnson Attending Provider: Jean Johnson Primary Care Provider: [facility] ED Provider: Yan Benavidez Discharge Data Discharge Date/Time-TO BE ENTERED AT DEPARTURE: 04/27/21 20:49 Medical Decision Making <SUPRIYA Wooten - Last Filed: 04/28/21 10:41> Patient has acute exacerbation of chronic renal insufficiency with a creatinine of 2.2 Elevated BUN, likely consistent with prerenal dehydration She will be given IV fluids She has evidence of tardive dyskinesia and extrapyramidal symptoms, I suspect these are associated with her Risperdal She had some improvement in her mentation after Cogentin administration although she is still having tongue fasciculations and biting her tongue on reassessment, which i suspect is causing the anterior tongue edema no obvious hematoma She was actually able to answer some of my questions on reassessment and also able to tolerate a popsicle to assist with swelling and comfort Her CT does not show evidence of acute abnormality per radiology interpretation in my review Diagnostic lab are otherwise reassuring when compared to prior Urinalysis is clean TSH, 30, free T4 pending, unlikely contributing to patient's symptoms I do not feel as though this patient should be discharged home, she should be admitted for IV hydration, reassessment of labs, and continued observation for better control of EPS and tongue edema low suspicion clinically for angioedema or anaphylaxis clinically Did attempt to admit patient, unfortunately there was a delay in the admission process the admitting hospitalist recommended ENT consultation, we did obtain ENT consultation via telephone and Dr. Keller recommends steroid, CT neck, I will perform without contrast patient has a creatinine of 2.2 She does not appear to have any posterior tongue swelling on my assessment in the emergency room She is maintaining her airway, she has not stridorous, she is not hypoxic, she is a DNR/DNI status Dr. Regan is willing and available to consult via telephone with our hospitalist but does not feel the need for emergent intervention aside from observation at this time He recommends attempting to improve her dystonia and likely her symptoms will improve care will be transitioned to DR Benavidez pending ct neck, decadron, antihistamine, and famotidine in stable condition <Yan Benavidez MD - Last Filed: 04/27/21 21:42> Assumed care of the patient from Ms. Reno. At the time of change of shift the patient had been given anti-inflammatories, case was discussed with on-call otolaryngology who agreed with conservative management. Out of an abundance of caution a CT scan was obtained of the neck. This shows no oropharyngeal mass and notes the images of the tongue are unremarkable. Following dexamethasone, famotidine and Claritin the patient's tongue swelling has diminished significantly and she is speaking more clearly. She was able to eat some pudding. Given the patient's dehydration, mental status change, I do feel she ought to be admitted. The period of observation in the emergency department from 4 PM until 7:30 PM has shown improvement however tongue swelling, initial consultation with otolaryngology was initiated, and the patient had imaging studies as above. Case discussed with Dr. Johnson and patient to be admitted. HPI <SUPRIYA Wooten - Last Filed: 04/28/21 10:41> General Mode of arrival: EMS. Date/Time Provider Initiated Documentation: 04/27/21 13:13. Limitations to Documentation: altered mental status. Information obtained by: EMS, RN notes reviewed and old records reviewed. HPI Narrative: This 81-year-old female with history of dementia, hypomagnesemia, schizophrenia presents with report of alteration in mental status with twitching and swollen tongue . [facility] states that patient was found like this in her bed and when she awoke. She had a recent change in the dosing of her Risperdal from liquid to tablet form last week. She has had some counseling in the past and secondary to twitching and recurrent tongue swelling and she was sent here for assessment. No prior she has not received any of her medications today. Denies any falls or injuries. [facility] staff denies any prior history of similar symptoms in the past. Related Data Home Medications Medication Instructions Recorded Confirmed omeprazole magnesium [Prilosec OTC] 20 mg PO DAILY 08/29/13 04/27/21 acetaminophen [Mapap Extra 500 mg PO TID 06/27/17 04/27/21 Strength] acetaminophen 650 mg PO Q6H PRN PRN 02/02/20 04/27/21 bisacodyl [Dulcolax (bisacodyl)] 10 mg [place] DAILY PRN 02/02/20 04/27/21 citalopram 20 mg PO DAILY 02/02/20 04/27/21 furosemide 20 mg PO Q OTHER DAY 02/02/20 04/27/21 gabapentin 300 mg PO TID 02/02/20 04/27/21 guaifenesin 200 mg PO Q4H PRN 02/02/20 04/27/21 levothyroxine 88 mcg PO DAILY 02/02/20 04/27/21 magnesium hydroxide [Milk of 30 ml PO DAILY PRN 02/02/20 04/27/21 Magnesia] risperidone 0.5 mg PO TID 04/27/21 04/27/21 risperidone mg 04/27/21 04/27/21 Allergies Allergy/AdvReac Type Severity Reaction Status Date / Time codeine Allergy Unknown Unverified 04/27/21 13:04 lisinopril Allergy Unknown Unverified 04/27/21 13:04 NSAIDS (Non-Steroidal Allergy Unknown Unverified 04/27/21 13:04 Anti-Inflamma sertraline Allergy Unknown Unverified 04/27/21 13:04 simvastatin AdvReac Unknown Unverified 04/27/21 13:04 hydrocodone-acetominophen AdvReac Unknown Uncoded 04/27/21 13:04 General Stated Complaint: GenMedical MANOJ: 3 Review of Systems <SUPRIYA Wooten - Last Filed: 04/28/21 10:41> Unobtainable due to mental status PFSH <SUPRIYA Wooten - Last Filed: 04/28/21 10:41> All Active Problems (Updated 04/27/21 @ 20:56 by Jean Johnson MD) Hypothyroidism (Chronic) Acute dehydration (Acute) Altered mental status (Acute) Extrapyramidal and movement disorder (Acute) Tongue swelling (Acute) Discharge planning issues (Acute) DVT prophylaxis (Acute) Dehydration (Acute) Hypomagnesemia (Acute) Dementia (Chronic) Weight loss (Acute) Dementia (Chronic) Sensorineural hearing loss, bilateral (Acute 05/09/17) Palliative care patient (Acute 09/20/16) FOLLOWED BY DR. CERDA Medical History (Updated 04/27/21 @ 20:56 by Jean Johnson MD) Dementia DJD (degenerative joint disease) Schizophrenia Surgical History Arthroplasty (08/17/14) left hip Cholecystectomy 2004 Colectomy (11/28/01) CA, sigmoid colonoscopy (02/18/08) ? 06/01/14 colonoscopy (10/03/12) ? 06/01/14 colonoscopy (10/07/13) ? 06/01/14 egd with dilitation (05/18/11) ? 06/01/14 Lobectomy (04/06/09) left lower lobe thyroid nodule biopsy (10/07/13) Social History Smoking/Tobacco Use Status: Former Tobacco Use Smoking risk assessment performed?: Yes Drug use: Never Substance use type: does not use Household members: spouse Housing: house Do you feel safe in your relationship?: Yes Additional Social history: Resident @ [facility]- unable to answer questions d/t baseline dementia Exam <SUPRIYA Wooten - Last Filed: 04/28/21 10:41> Const General: frail appearing Orientation: alert Limitations: altered mental status HENMT Other: Tongue is swollen, consistent with tardive dyskinesia, actively biting her tongue Anterior tongue have excoriation, scant bleeding, no evidence of obvious hematoma, edentulous No obvious posterior tongue swelling, uvula midline Eyes Pupils: PERRL Neck Other: no stridor Resp Effort & Inspection: normal respiratory effort Auscultation: clear to auscultation bilaterally Cardio Rate: regular rate Rhythm: regular rhythm Skin General skin exam: no rashes or lesions noted Neuro General: patient alert Extrem Right lower extremity: normal to inspection Course <SUPRIYA Wooten - Last Filed: 04/28/21 10:41> Vital Signs Vital signs: Vital Signs Temperature 36.4 C L 04/27/21 12:58 Pulse 89 04/27/21 12:58 Respiratory Rate 16 04/27/21 12:58 Blood Pressure 127/96 H 04/27/21 12:58 Pulse Oximetry 96 04/27/21 12:58 Temperature 36.4 C L 04/27/21 12:58 Temperature Source Skin 04/27/21 12:58 Pulse 89 04/27/21 12:58 Respiratory Rate 16 04/27/21 12:58 Respiratory Effort 04/27/21 12:58 Blood Pressure 127/96 H 04/27/21 12:58 Blood Pressure Position Supine 04/27/21 12:58 Pulse Oximetry 96 04/27/21 12:58 Oxygen Delivery Method Room Air 04/27/21 12:58 Oxygen Flow Rate 0 04/27/21 12:58 Pain Level 0 04/27/21 12:58 Lab/Test Results Lab/Test Results: Laboratory Tests Range/Units 04/27/21 13:45 COVID-19 Source Nasal/Nares Sign Out <SUPRIYA Wooten - Last Filed: 04/28/21 10:41> Sign Out Data: Sign Out Comment: pending ct neck, iv hydration, observation, and likely admission Last updated by Jocelin Reno PA at 04/27/21 17:00
[2021-04-27 14:33] LABS: COVID-19 PCR Negative (Negative)
[2021-04-27 15:02] LABS: Bilirubin Negative (Negative); Blood Negative (Negative); Clarity Sl Cloudy (Clear); Glucose Negative (Negative); Ketones Negative (Negative); Leukocyte Esterase Negative (Negative); Nitrite Negative (Negative); Specific Gravity 1.025 (1.005-1.025); Urobilinogen 0.2 EU/dL (Up TO 0.2)
[2021-04-27 15:03] LABS: Abs Immature Grans 0.03 10^3/uL (0.0-0.06); Absolute Basophil Count 0.06 10^3/uL (0.0-0.2); Absolute Eosinophil Count 0.04 10^3/uL (0.0-0.7); Absolute Lymphocyte Count 0.79 10^3/uL (1.2-3.4); Absolute Monocyte Count 0.55 10^3/uL (0.1-0.8); Basophils % 0.6; Eosinophils % 0.4; HCT 39.3 % (36.0-46.0); HGB 11.7 g/dL (11.2-15.7); Immature Grans % 0.3; Lymphocytes % 7.5; MCHC 29.8 % (32.0-36.0); MCV 90.8 fL (80-95); MPV 10.7 fL (8.0-11.0); Monocytes % 5.3; Neutrophils % 85.9; Nucleated RBC 0 %; Platelet Count 309 10^3/uL (130-400); RBC 4.33 10^6/uL (3.93-5.22); RDW 14.8 % (11.7-14.6); RDW-SD 49.2 fL; WBC 10.47 10^3/uL (4.4-10.8)
[2021-04-27 15:13] LABS: Magnesium 2.3 mg/dL (1.8-2.4)
[2021-04-27 15:17] LABS: ALT 11 U/L (14-59); AST 13 U/L (15-37); Albumin 3.4 g/dL (3.4-5.0); Alkaline Phosphatase 78 U/L (46-116); BUN 35 mg/dL (7-18); Bilirubin, Total 0.6 mg/dL (0.2-1.0); CREATININE 2.2 mg/dL (0.55-1.02); Calcium 8.7 mg/dL (8.5-10.1); Chloride 107 mmol/L (98-107); Estimated GFR 21.48 (mL/min/1.73m2); Glucose 112 mg/dL (74-106); Potassium 4.1 mmol/L (3.5-5.1); Sodium 148 mmol/L (136-145); Total Protein 7.4 g/dL (6.4-8.2)
[2021-04-27 15:22] LABS: Troponin I < 50 ng/L (<or=60)
[2021-04-27 15:27] LABS: TSH 30.15 uIU/mL (0.36-3.74)
[2021-04-27] MEDS: Normal Saline 1,000 ML 150 ML IV (15:38)
[2021-04-27 16:23] LABS: FREE T4 0.92 ng/dL (0.76-1.46)
--- NOTE | 2021-04-27 16:49 | MCONE_ITS ---
Date of service: 04/27/21 Time of Service: 16:30 Assessment and Plan Assessment and plan (1) Tongue swelling: Status: Acute Assessment and plan: The patient should be evaluated by ENT prior to being considered for admission here. If inpatient evaluation is unobtainable, then at a minimum a phone consultation should be sought for recommendations as to how to treat her medically. We do not have ENT in-house on , as I understand it. The patient is DNR/DNI, per ED provider - however, as I understand it, she is not do not treat, and family/guardian need to be consulted as to goals of care. (2) Extrapyramidal and movement disorder: Status: Acute Assessment and plan: Would need to seek a psychiatry consult for help with management of EPS and further recommendations on management of schizophrenia and dementia. (3) Dementia: Assessment and plan: Will likely need a kaleb psych stay after this hospitalization for stabilization of behaviors. (4) Schizophrenia: Assessment and plan: As above History of Present Illness History of Present Illness Chief Complaint: Tongue swelling, EPS Narrative: Ms Antony is an 81 year old female with PMHx of schizophrenia, dementia, DJD, hearing loss, whom I was asked to consider for admission for tongue swelling due to biting which developed after having her risperidone formula adjusted from tab to liquid without change of dose in conjunction to development of other extrapyramidal symptoms, such as tremors. There were also reports of altered mental status, without more specifics. The patient had presented to the ED from [facility], where this dose adjustment happened 1 week ago. In the ED, she is not drooling/is able to clear her secretions, has no strider and is saying a few muffled words, but is combative and non-cooperative on the exam of oropharynx. She did not drink for me during my exam with her. Review of Systems Unobtainable due to mental condition [facility] All Active Problems (Updated 04/27/21 @ 17:02 by Olga Powers MD) Extrapyramidal and movement disorder (Acute) Tongue swelling (Acute) Discharge planning issues (Acute) DVT prophylaxis (Acute) Dehydration (Acute) Hypomagnesemia (Acute) Dementia (Chronic) Weight loss (Acute) Dementia (Chronic) Sensorineural hearing loss, bilateral (Acute 05/09/17) Palliative care patient (Acute 09/20/16) FOLLOWED BY DR. CERDA Medical History (Updated 04/27/21 @ 17:02 by Olga Powers MD) Dementia DJD (degenerative joint disease) Schizophrenia Surgical History Arthroplasty (08/17/14) left hip Cholecystectomy 2004 Colectomy (11/28/01) CA, sigmoid colonoscopy (02/18/08) ? 06/01/14 colonoscopy (10/03/12) ? 06/01/14 colonoscopy (10/07/13) ? 06/01/14 egd with dilitation (05/18/11) ? 06/01/14 Lobectomy (04/06/09) left lower lobe thyroid nodule biopsy (10/07/13) Social History Smoking/Tobacco Use Status: Former Tobacco Use Smoking risk assessment performed?: Yes Drug use: Never Substance use type: does not use Household members: spouse Housing: house Do you feel safe in your relationship?: Yes Additional Social history: Resident @ [facility] [employer]- unable to answer questions d/t baseline dementia Exam Narrative Exam Narrative: General: Elderly female with swollen protruding tongue with purple discoloration and evidence of bite marquis, without obvious bleeding, no stridor, not conversing, not following commands Neurological: A&Ox1, very subtle tremors, able to move all 4 extremities, not having stereotypical tongue movements in front of me Psychiatric: combative on attempt to exam, noncooperative Skin: Visible skin intact HEENT: Atraumatic, normocephalic, EOMI, swollen purple tongue protruding from mouth with evidence of bite marquis on R side of the tongue, no obvious bleeding, not drooling, no stridor, does not permit exam of oropharynx Cardiovascular: RRR, no m/r/g Lungs: CTAB Gastrointestinal: soft,nontender, nondistended Genitourinary: deferred Extremities: no edema BLE's Results Last Vital Signs Temp 36.4 C L 04/27/21 12:58 Pulse 89 04/27/21 12:58 Resp 11 L 04/27/21 15:20 BP 102/70 04/27/21 15:16 Pulse Ox 90 L 04/27/21 15:00 Labs Result diagrams: 04/27/21 14:55 04/27/21 14:55 Labs: Laboratory Results - last 24 hr 04/27/21 04/27/21 04/27/21 13:45 14:32 14:55 WBC RBC Hgb Hct MCV MCH MCHC RDW Plt Count MPV Immature Gran % Neutrophils % Lymphocytes % Monocytes % Eosinophils % Basophils % Nucleated RBC % Absolute Neutrophils Absolute Lymphocytes Absolute Monocytes Absolute Eosinophils Absolute Basophils Sodium 148 H Potassium 4.1 Chloride 107 Carbon Dioxide 37.0 H Anion Gap 4.0 BUN 35 H Creatinine 2.2 H Estimated GFR/1.73 m2 21.48 Glucose 112 H Calcium 8.7 Magnesium Total Bilirubin 0.6 AST 13 L ALT 11 L Alkaline Phosphatase 78 Troponin I Total Protein 7.4 Albumin 3.4 TSH Free T4 Urine Color Yellow Urine Clarity Sl Cloudy Urine pH 6.0 Ur Specific [place] 1.025 Urine Protein Negative Urine Ketones Negative Urine Blood Negative Urine Nitrite Negative Urine Bilirubin Negative Urine Urobilinogen 0.2 Ur Leukocyte Esterase Negative Urine Glucose Negative COVID-19 Source Nasal/Nares SARS-CoV-2 (PCR) Negative 04/27/21 04/27/21 04/27/21 14:55 14:55 14:55 WBC 10.47 RBC 4.33 Hgb 11.7 Hct 39.3 MCV 90.8 MCH 27.0 MCHC 29.8 L RDW 14.8 H Plt Count 309 MPV 10.7 Immature Gran % 0.3 Neutrophils % 85.9 Lymphocytes % 7.5 Monocytes % 5.3 Eosinophils % 0.4 Basophils % 0.6 Nucleated RBC % 0 Absolute Neutrophils 9.00 H Absolute Lymphocytes 0.79 L Absolute Monocytes 0.55 Absolute Eosinophils 0.04 Absolute Basophils 0.06 Sodium Potassium Chloride Carbon Dioxide Anion Gap BUN Creatinine Estimated GFR/1.73 m2 Glucose Calcium Magnesium Total Bilirubin AST ALT Alkaline Phosphatase Troponin I < 50 Total Protein Albumin TSH 30.15 H Free T4 Urine Color Urine Clarity Urine pH Ur Specific [place] Urine Protein Urine Ketones Urine Blood Urine Nitrite Urine Bilirubin Urine Urobilinogen Ur Leukocyte Esterase Urine Glucose COVID-19 Source SARS-CoV-2 (PCR) 04/27/21 04/27/21 14:55 14:55 WBC RBC Hgb Hct MCV MCH MCHC RDW Plt Count MPV Immature Gran % Neutrophils % Lymphocytes % Monocytes % Eosinophils % Basophils % Nucleated RBC % Absolute Neutrophils Absolute Lymphocytes Absolute Monocytes Absolute Eosinophils Absolute Basophils Sodium Potassium Chloride Carbon Dioxide Anion Gap BUN Creatinine Estimated GFR/1.73 m2 Glucose Calcium Magnesium 2.3 Total Bilirubin AST ALT Alkaline Phosphatase Troponin I Total Protein Albumin TSH Free T4 0.92 Urine Color Urine Clarity Urine pH Ur Specific [place] Urine Protein Urine Ketones Urine Blood Urine Nitrite Urine Bilirubin Urine Urobilinogen Ur Leukocyte Esterase Urine Glucose COVID-19 Source SARS-CoV-2 (PCR) Imaging Additional studies: CT head: No acute intracranial findings on this noninfused CT scan of the brain. Chronic small vessel ischemic white matter changes again noted. No evidence of intracranial hemorrhage.
[2021-04-27] MEDS: Dexamethasone 10 MG/ML VIAL IVP (18:02)
[2021-04-27] MEDS: FAMOTIDINE 20 MG/50 ML BAG 200 MG IVPB (18:02)
[2021-04-27] MEDS: Loratidine 10 MG TAB PO (18:02)
--- NOTE | 2021-04-27 18:48 | DI.CT_ITS ---
Exam(s) CT NECK WO EXAM: CT NECK WO CLINICAL HISTORY: anterior tongue swelling. TECHNIQUE: Imaging Protocol: Axial CT angiography was performed with multi-slice acquisition and mu lti-planar and/or 3D reconstructions. CONTRAST MATERIAL: Intravenous: Omnipaque 350 Contrast volume:structured data in ml COMPARISON: CT CT HEAD CERVICAL SPINE WO from 03/24/2019 FINDINGS: Some motion artifact here. Visualized lung apices appear unremarkable. Nasopharynx: Unremarkable Oropharynx: No obvious abnormality. Patient is edentulous. Hypopharynx: No obvious abnormality. Larynx: No obvious abnormality and the subglottic airway appears unremarkable. Lymph nodes: No abnormal lymphadenopathy evident in the neck. Salivary glands: Parotid and submandibular glands not enlarged. Osseous: No fractures nor osseous lesions identified. Degenerative disc disease in the lower cervica l spine. Mild facet arthropathy. No fractures nor lytic lesions seen in the cervical vertebrae. IMPRESSION: 1. No definite mass nor lymphadenopathy seen. 2. No airway obstruction RADIATION DOSE DELIVERED: 393.92mGy.cm Total DLP DATA REPOSITORY: All CT scans at this facility are submitted to the National Radiology Data Registry (NRDR) Dose Index Registry (DIR) with the [employer] (A[employer]). RADIATION OPTIMIZATION: All CT scans at this facility use at least one of these dose optimization te chniques: automated exposure control; mA and/or kV adjustment per patient size (includes targeted exa ms where dose is matched to clinical indication); or iterative reconstruction.
--- NOTE | 2021-04-27 19:15 | DI.VRAD_ITS ---
PROCEDURE INFORMATION: Exam: CT Neck Without Contrast Exam date and time: 04/27/2021 4:55 PM Age: 81 years old Clinical indication: Other: Swelling of tongue TECHNIQUE: Imaging protocol: Computed tomography images of the neck without contrast. Radiation optimization: All CT scans at this facility use at least one of these dose optimization techniques: automated exposure control; mA and/or kV adjustment per patient size (includes targeted exams where dose is matched to clinical indication); or iterative reconstruction. COMPARISON: CT HEAD CERVICAL SPINE WO 03/24/2019 5:49 AM FINDINGS: Brain: Limited view of the intracranial region showing age-related cerebral atrophy. Nasopharynx: Unremarkable. Dental: Complete absence of dentition. Oropharynx: Unremarkable. No significant tonsillar enlargement. No definable mass of the tongue. Hypopharynx: Unremarkable. Larynx: Unremarkable. Normal epiglottis. Retropharyngeal space: Unremarkable. Submandibular/Parotid glands: Normal. Glands are normal in size. Thyroid: Normal. No enlarged or calcified nodules. Lymph nodes: Unremarkable. No lymphadenopathy. Trachea: Visualized trachea is unremarkable. Lungs: Unremarkable as visualized. Bones/joints: Degenerative cervical spine. No acute fracture. Soft tissues: Unremarkable. No significant soft tissue swelling. IMPRESSION: 1. No definable oropharyngeal mass. Images of the tongue are unremarkable. No masslike features. There is motion artifact degradation of image quality. 2. Patient has complete absence of dentition. 3. Degenerative cervical spine disease. Dictated and Authenticated by: Joshua Capps MD. Ordering:WILLIAMS Monreal MD
--- NOTE | 2021-04-27 20:00 | DI.RAD_ITS ---
Exam(s) XR PORTABLE CHEST AP EXAM: XR PORTABLE CHEST AP CLINICAL HISTORY: ams. TECHNIQUE: 2D digital imaging was performed. COMPARISON: CR XR CHEST 2V PA LATERAL from 01/10/2019 FINDINGS: Heart size is upper normal. The mediastinum is not widened. Right lung is clear. Mild infiltrate noted in the left lower lobe retrocardiac region. No obvious pleural effusions. IMPRESSION: Mild increased markings in the left lower lobe retrocardiac region, possibly infiltrate. Recommend n onportable PA and lateral views when clinically possible. DATA REPOSITORY: RADIATION DOSE DELIVERED: All CT scans at this facility use at least one of these dose optimization techniques: automated exposure control; mA and/or kV adjustment per patient size (includes targeted e xams where dose is matched to clinical indication); or iterative reconstruction.
--- NOTE | 2021-04-27 20:47 | HPE_ITS ---
Date of service: 04/27/21 Time of Service: 20:47 Assessment and Plan Assessment and plan (1) Acute dehydration: Status: Acute Assessment and plan: She does have mild hypernatremia. I will replenish her fluids with half-normal saline and recheck her labs tomorrow. (2) Altered mental status: Status: Acute Assessment and plan: She is not responding to me at this time. She appears asleep. I did obtain history from the emergency physician. She may require psychiatric evaluation and hospitalization. We will see how she is tomorrow. (3) Extrapyramidal and movement disorder: Status: Acute Assessment and plan: She did seem to improve with the dose of benztropine earlier. I will give more of this if she needs it. (4) Tongue swelling: Status: Acute Assessment and plan: Her tongue swelling seems to be resolved now with the famotidine and dexamethasone that she received. I will continue with oral prednisone tomorrow. (5) Hypothyroidism: Status: Chronic Assessment and plan: Her TSH is quite high now. She has been on a 88 mcg of levothyroxine daily. I will move this up to 100 mcg. History of Present Illness History of Present Illness Chief Complaint: altered mental status and swollen tongue Narrative: This 81-year-old female is a resident at the [facility]. She has schizophrenia and dementia. She cannot really provide me with any history but the history is obtained from the emergency doctor states that she recently was switched from a tablet to liquid Risperdal. She came to emergency department with lip smacking and biting her tongue and other movements and was given benztropine with resolution of that extra movements however her tongue was quite swollen. She did have a medical consu ltation from the day hospitalist recommend that she have ENT evaluation. That evaluation was done by phone and a CT scan was done of her neck which did not show any abnormalities. The patient was given dexamethasone and famotidine and her tongue is now improved and in her mouth. The emergency physician got a good view of her pharynx and did not appear to be any obstruction there. Patient has been able to take some pudding without difficulty here in the department. The patient is noncommunicative with me and has been combative at times with the staff. There has been no stridor or respiratory distress. Laboratory evaluation did show an elevated creatinine and BUN and TSH. Review of Systems Unobtainable due to mental status PFSH All Active Problems (Updated 04/27/21 @ 20:56 by Jean Johnson MD) Hypothyroidism (Chronic) Acute dehydration (Acute) Altered mental status (Acute) Extrapyramidal and movement disorder (Acute) Tongue swelling (Acute) Discharge planning issues (Acute) DVT prophylaxis (Acute) Dehydration (Acute) Hypomagnesemia (Acute) Dementia (Chronic) Weight loss (Acute) Dementia (Chronic) Sensorineural hearing loss, bilateral (Acute 05/09/17) Palliative care patient (Acute 09/20/16) FOLLOWED BY DR. CERDA Medical History (Updated 04/27/21 @ 20:56 by Jean Johnson MD) Dementia DJD (degenerative joint disease) Schizophrenia Surgical History Arthroplasty (08/17/14) left hip Cholecystectomy 2004 Colectomy (11/28/01) CA, sigmoid colonoscopy (02/18/08) ? 06/01/14 colonoscopy (10/03/12) ? 06/01/14 colonoscopy (10/07/13) ? 06/01/14 egd with dilitation (05/18/11) ? 06/01/14 Lobectomy (04/06/09) left lower lobe thyroid nodule biopsy (10/07/13) Social History Smoking/Tobacco Use Status: Former Tobacco Use Smoking risk assessment performed?: Yes Drug use: Never Substance use type: does not use Household members: spouse Housing: house Do you feel safe in your relationship?: Yes Additional Social history: Resident @ [facility] [employer]- unable to answer q uestions d/t baseline dementia Meds Allergies and Home Medications Allergies Allergy/AdvReac Type Severity Reaction Status Date / Time codeine Allergy Unknown Unverified 04/27/21 13:04 lisinopril Allergy Unknown Unverified 04/27/21 13:04 NSAIDS (Non-Steroidal Allergy Unknown Unverified 04/27/21 13:04 Anti-Inflamma sertraline Allergy Unknown Unverified 04/27/21 13:04 simvastatin AdvReac Unknown Unverified 04/27/21 13:04 hydrocodone-acetominophen AdvReac Unknown Uncoded 04/27/21 13:04 Home Medications Medication Instructions Recorded Confirmed Type omeprazole magnesium [Prilosec OTC] 20 mg PO DAILY 08/29/13 04/27/21 History acetaminophen [Mapap Extra 500 mg PO TID 06/27/17 04/27/21 History Strength] acetaminophen 650 mg PO Q6H PRN PRN 02/02/20 04/27/21 History bisacodyl [Dulcolax (bisacodyl)] 10 mg [place] DAILY PRN 02/02/20 04/27/21 History citalopram 20 mg PO DAILY 02/02/20 04/27/21 History furosemide 20 mg PO Q OTHER DAY 02/02/20 04/27/21 History gabapentin 300 mg PO TID 02/02/20 04/27/21 History guaifenesin 200 mg PO Q4H PRN 02/02/20 04/27/21 History levothyroxine 88 mcg PO DAILY 02/02/20 04/27/21 History magnesium hydroxide [Milk of 30 ml PO DAILY PRN 02/02/20 04/27/21 History Magnesia] risperidone 0.5 mg PO TID 04/27/21 04/27/21 History risperidone mg 04/27/21 04/27/21 History Exam Const General: comfortable and no acute distress Nutritional Appearance: obese HENMT Head: normal to inspection Mouth: oral mucosae normal and lip normal Other: Tongue is slightly enlarged but is within the mouth. It is discolored violaceous because she had a grape popsicle. Eyes General: appearance normal, both eyes and all related structures Conjunctivae: conjunctivae normal Pupils: PERRL Neck Neck: normal visual inspection and no lymphadenopathy Resp Effort & Inspection: normal respiratory effort Auscultation: clear to auscultation bilaterally, no rales, no rhonchi and no wheezes Cardio Jugular venous pressure: no JVD Rate: regular rate Rhythm: regular rhythm Heart Sounds: S1 normal, no gallops and no murmurs GI Inspection: normal to inspection Palpation: soft, no hepatosplenomegaly, not firm, no guarding and nontender Neuro Motor: muscle tone normal throughout and no fasciculations Sensory Exam: no sensory deficits noted Extrem General: normal to inspection, no pedal edema and no calf tenderness Results Labs Result diagrams: 04/27/21 14:55 12/29/21 14:55 Labs: Laboratory Results - last 24 hr 04/27/21 04/27/21 04/27/21 13:45 14:32 14:55 WBC RBC Hgb Hct MCV MCH MCHC RDW Plt Count MPV Immature Gran % Neutrophils % Lymphocytes % Monocytes % Eosinophils % Basophils % Nucleated RBC % Absolute Neutrophils Absolute Lymphocytes Absolute Monocytes Absolute Eosinophils Absolute Basophils Sodium 148 H Potassium 4.1 Chloride 107 Carbon Dioxide 37.0 H Anion Gap 4.0 BUN 35 H Creatinine 2.2 H Estimated GFR/1.73 m2 21.48 Glucose 112 H Calcium 8.7 Magnesium Total Bilirubin 0.6 AST 13 L ALT 11 L Alkaline Phosphatase 78 Troponin I Total Protein 7.4 Albumin 3.4 TSH Free T4 Urine Color Yellow Urine Clarity Sl Cloudy Urine pH 6.0 Ur Specific [place] 1.025 Urine Protein Negative Urine Ketones Negative Urine Blood Negative Urine Nitrite Negative Urine Bilirubin Negative Urine Urobilinogen 0.2 Ur Leukocyte Esterase Negative Urine Glucose Negative COVID-19 Source Nasal/Nares SARS-CoV-2 (PCR) Negative 04/27/21 04/27/21 04/27/21 14:55 14:55 14:55 WBC 10.47 RBC 4.33 Hgb 11.7 Hct 39.3 MCV 90.8 MCH 27.0 MCHC 29.8 L RDW 14.8 H Plt Count 309 MPV 10.7 Immature Gran % 0.3 Neutrophils % 85.9 Lymphocytes % 7.5 Monocytes % 5.3 Eosinophils % 0.4 Basophils % 0.6 Nucleated RBC % 0 Absolute Neutrophils 9.00 H Absolute Lymphocytes 0.79 L Absolute Monocytes 0.55 Absolute Eosinophils 0.04 Absolute Basophils 0.06 Sodium Potassium Chloride Carbon Dioxide Anion Gap BUN Creatinine Estimated GFR/1.73 m2 Glucose Calcium Magnesium Total Bilirubin AST ALT Alkaline Phosphatase Troponin I < 50 Total Protein Albumin TSH 30.15 H Free T4 Urine Color Urine Clarity Urine pH Ur Specific [place] Urine Protein Urine Ketones Urine Blood Urine Nitrite Urine Bilirubin Urine Urobilinogen Ur Leukocyte Esterase Urine Glucose COVID-19 Source SARS-CoV-2 (PCR) 04/27/21 04/27/21 14:55 14:55 WBC RBC Hgb Hct MCV MCH MCHC RDW Plt Count MPV Immature Gran % Neutrophils % Lymphocytes % Monocytes % Eosinophils % Basophils % Nucleated RBC % Absolute Neutrophils Absolute Lymphocytes Absolute Monocytes Absolute Eosinophils Absolute Basophils Sodium Potassium Chloride Carbon Dioxide Anion Gap BUN Creatinine Estimated GFR/1.73 m2 Glucose Calcium Magnesium 2.3 Total Bilirubin AST ALT Alkaline Phosphatase Troponin I Total Protein Albumin TSH Free T4 0.92 Urine Color Urine Clarity Urine pH Ur Specific [place] Urine Protein Urine Ketones Urine Blood Urine Nitrite Urine Bilirubin Urine Urobilinogen Ur Leukocyte Esterase Urine Glucose COVID-19 Source SARS-CoV-2 (PCR) Last Vital Signs Temp 36.4 C L 04/27/21 12:58 Pulse 64 04/27/21 20:43 Resp 16 04/27/21 20:43 BP 129/64 04/27/21 20:43 Pulse Ox 93 04/27/21 20:43
--- NOTE | 2021-04-27 20:48 | DI.VRAD_ITS ---
PROCEDURE INFORMATION: Exam: XR Chest Exam date and time: 04/27/2021 8:08 PM Age: 81 years old Clinical indication: Other: Altered mental status. ; Patient HX: AMS TECHNIQUE: Imaging protocol: XR of the chest. Views: 1 view. COMPARISON: CT CHEST/ABD/PEL WO 03/24/2019 6:10 AM FINDINGS: Lungs: Mild increase interstitial markings. Cannot exclude mild interstitial edema. No focal lung consolidation or infiltrates. Pleural spaces: No pleural effusion. Heart/Mediastinum: Normal heart size. Bones/joints: Degenerative thoracic spine disease. IMPRESSION: 1. Mild increased interstitial markings. Cannot exclude interstitial edema or CHF. 2. No focal lung consolidation. 3. No pleural effusion. 4. Degenerative thoracic spine changes. Dictated and Authenticated by: Joshua Capps MD. Ordering:WILLIAMS Monreal MD
[2021-04-27] MEDS: SODIUM CHLORIDE 0.45% 1,000 ML 125 ML IV (21:35)
[2021-04-27] MEDS: Enoxaparin 30 MG/0.3 ML SYR SC (21:39)
[2021-04-28 03:31] VITALS: BP 124/72; PULSE 69; RESP 18; TEMP 36.6; O2SAT 94
[2021-04-28] MEDS: Levothyroxine 100 MCG TAB PO (06:32)
[2021-04-28] MEDS: SODIUM CHLORIDE 0.45% 1,000 ML 125 ML IV ×3 (06:32→23:09)
[2021-04-28 07:22] LABS: Anion Gap 7.8 mmol/L (3-11); BUN 35 mg/dL (7-18); CO2 31.2 mmol/L (21.0-32.0); CREATININE 2.1 mg/dL (0.55-1.02); Calcium 8.2 mg/dL (8.5-10.1); Chloride 107 mmol/L (98-107); Estimated GFR 22.66 (mL/min/1.73m2); Glucose 112 mg/dL (74-106); Potassium 3.7 mmol/L (3.5-5.1); Sodium 146 mmol/L (136-145)
[2021-04-28 07:25] LABS: HCT 35.8 % (36.0-46.0); HGB 10.7 g/dL (11.2-15.7); MCH 26.8 pg (27.0-33.0); MCHC 29.9 % (32.0-36.0); MCV 89.7 fL (80-95); MPV 11.8 fL (8.0-11.0); Platelet Count 277 10^3/uL (130-400); RBC 3.99 10^6/uL (3.93-5.22); RDW 14.8 % (11.7-14.6); RDW-SD 49.4 fL; WBC 6.72 10^3/uL (4.4-10.8)
[2021-04-28 07:35] VITALS: BP 118/78; PULSE 69; RESP 19; TEMP 36.7; O2SAT 97
[2021-04-28] MEDS: Benztropine 1 MG TAB PO ×2 (08:44→19:27)
[2021-04-28] MEDS: Gabapentin 100 MG CAP 300 MG PO ×3 (08:44→19:27)
[2021-04-28] MEDS: Citalopram 10 MG TAB 20 MG PO (08:45)
[2021-04-28] MEDS: Normal Saline Flush 10 ML SYR IVP (08:45)
[2021-04-28] MEDS: Omeprazole 20 MG CAPCR PO (08:45)
[2021-04-28] MEDS: predniSONE 20 MG TAB 40 MG PO (08:45)
--- NOTE | 2021-04-28 15:20 | CHAPLAIN ---
[facility] and was sent for because her tongue was swollen. She did not respond to me when I spoke to her, or look at me. The tv was on and she appeared to look at that at times.
[2021-04-28 15:35] VITALS: BP 107/57; PULSE 62; RESP 19; TEMP 37.1; O2SAT 95
--- NOTE | 2021-04-28 16:20 | PGE_ITS ---
Date of Service Date of service: 04/28/21 Time of Service: 15:45 Assessment and Plan Assessment and plan (1) Tongue swelling: Status: Acute Assessment and plan: Nearly completely resolved. DDx: angioedema vs tongue swelling from tongue biting (the patient does not have evidence of tardive dyskinesia at the time of my exam today). Improved post steroids and pepcid. Stop prednisone and monitor. (2) Altered mental status: Status: Acute Assessment and plan: We are not sure what was meant by this. We are trying to get more information from [facility] rehab. ?Dystonia, confusion or psychotic symptoms? We do not know right now. (3) Extrapyramidal and movement disorder: Status: Resolved Assessment and plan: Discussed with Dr Young. Symptoms observed in the ED yesterday were probably c/w dystonia. (4) Acute dehydration: Status: Acute Assessment and plan: Continue IVF overnight (5) Acute kidney injury superimposed on chronic kidney disease: Status: Acute Assessment and plan: Due to dehydration but also retaining urine. Insert pete catheter. Continue IVF. (6) Elevated TSH: Status: Acute Assessment and plan: Continue levothyroxine at increased dose, but I question whether TSH was not elevated as an acute response marker. Repeat TSH in am. (7) Schizophrenia: Assessment and plan: Await medical hx information from [facility] because everything I have heard so far is more c/w dementia. Discussed with Dr Young. Until we have clarification as to why the medication formulation was changed (was the patient spitting out the pills and not getting risperidone at all prior to being switched to the liquid formulation), neither Dr Young nor I can recommend a dose of risperidone. It would be important to find out how much risperido the patient was physically actually taking prior to being switched to the liquid formulation. Hold risperidone for now. If needed, would use haldol IM/IV to manage behaviors. (8) Dementia: Assessment and plan: Psychiatry consulted for recommendations on medication management. Has previously required a kaleb psych stay. (9) DVT prophylaxis: Status: Acute Assessment and plan: SC enoxaparin (10) Discharge planning issues: Status: Acute Assessment and plan: DNR/DNI Consult PT and palliative care Subjective Subjective Interval history since last seen: Ms Antony has not been answering questions or following commands. Nursing notes that she has been rigid and resisting to care. She has been retaining urine and has not urinated. Pete catheter has been requested. The patient is able to verbalize take that off or what's that or stop it. We are trying to find out from [facility] why the patient was switched from tablet to liquid risperidone and exactly what her altered mental status meant. Her met with care management today and stated that she was a patient at [facility] about 2 years ago because of progressive decline and wandering behavior. Exam Narrative Exam Narrative: General: Elderly female who does not respond to my questions and not following commands, A&Ox0 HEENT: EOMI, MMM, tongue is significantly less swollen. Heart: RRR, no m/r/g Lungs: CTAB Abdomen: soft, nontender, nondistended Extremities: no edema BLE's Objective Last Vital Signs Temp 37.1 C 04/28/21 15:35 Pulse 62 04/28/21 15:35 Resp 19 04/28/21 15:35 BP 107/57 L 04/28/21 15:35 Pulse Ox 95 04/28/21 15:35 Laboratory Results - last 24 hr 04/27/21 04/28/21 04/28/21 14:55 06:45 06:45 WBC 6.72 D RBC 3.99 Hgb 10.7 L Hct 35.8 L MCV 89.7 MCH 26.8 L MCHC 29.9 L RDW 14.8 H Plt Count 277 MPV 11.8 H Sodium 146 H Potassium 3.7 Chloride 107 Carbon Dioxide 31.2 Anion Gap 7.8 BUN 35 H Creatinine 2.1 H Estimated GFR/1.73 m2 22.66 Glucose 112 H Calcium 8.2 L Free T4 0.92
--- NOTE | 2021-04-28 16:49 | PSYCO_ITS ---
Date of service: 04/28/21 Time of Service: 16:50 History of Present Illness History of Present Illness Chief Complaint: Altered mental status Narrative: 4 hour consultation requested by Dr. Powers for assistance with psychiatric medication managment and evaluation of altered mental status. There is a great deal that is unknown about the patient's medical history. She was referred to ED by [facility] where she has been residing for the last 2 years. She was noted to start liquid risperidone about one week ago and developed what appears to be possibly an acute dystonic reaction and tongue swelling. She was treated in the ED for presumed EPS and dehydration. She has a history of schizophrenia and dementia, thiough insight into her baseline level of cognitive functioning in unavailable. Effort to obtain rec ords and collateral information from [facility] are pending. Efforts to exam the patient through telemedicine today were unsuccessful and she was non-responsive to repeated efforts to engage in disucssion of her current clinical presentation. Medicaiions are reviewed, though how consistently she had been adherent to the listed medications is unclear. As for potentail medication interactions, the only potential notable interaction is between citalopram and risperidone, which resulted in elevations of risperidone concentrations. It is possible that she patel been pooerly adherent to te tablet formatuion of risperidone and was subsequently switched to the liquid formatution. Though the liquid and oral formualtion had equivalent bioavailability, liquid formulations result in achieving a higher plasma concentration more quickly. The potential role of interactions with citalopram is also curious, though in no way definitive. Review of available lab studies fail to elucidate a clear alternative explaination for her current presentation. Consults Consult date: 04/28/21 Requesting physician: Olga Powers Assessment and Plan Assessment and plan (1) Altered mental status: Status: Acute Assessment and plan: Natura of current presentation is quite unclear, given limited information about her recent medical history. Rationale for recent change in risperidone formulation might provide some illumination of recent interval.The most likely explanation is an acute dystonic reaction related to risperidone. Of note is potential interaction between risperidone and citalopram, which can potentially double to exposure to risperidone due to inhibition of risperidone metabolism. Until further collateral information related to her baseline mental and physical finctioning can be obtained, holding risperidone for the time being would be advised. In the event that behavioral disturbances emerge, low dose haloperidol (1 mg IM or IV) can be provided Q4H upto 4 time in 24 hours to promote safety and patient calm. Collateral information is pending related to recent medical interval. Followup consultation will be provided as needed according to dictates of clinical presentaion and available collateral information Please feel free to call with any questions or concers. (2) Extrapyramidal and movement disorder: Status: Resolved Review of Systems All systems reviewed & are unremarkable except as noted in HPI and below PFSH All Active Problems Elevated TSH (Acute) Acute kidney injury superimposed on chronic kidney disease (Acute) Hypothyroidism (Chronic) Acute dehydration (Acute) Altered mental status (Acute) Tongue swelling (Acute) Discharge planning issues (Acute) DVT prophylaxis (Acute) Dehydration (Acute) Hypomagnesemia (Acute) Dementia (Chronic) Weight loss (Acute) Dementia (Chronic) Sensorineural hearing loss, bilateral (Acute 05/09/17) Palliative care patient (Acute 09/20/16) FOLLOWED BY DR. CERDA Medical History Dementia DJD (degenerative joint disease) Schizophrenia Surgical History Arthroplasty (08/17/14) left hip Cholecystectomy 2004 Colectomy (11/28/01) CA, sigmoid colonoscopy (02/18/08) ? 06/01/14 colonoscopy (10/03/12) ? 06/01/14 colonoscopy (10/07/13) ? 06/01/14 egd with dilitation (05/18/11) ? 06/01/14 Lobectomy (04/06/09) left lower lobe thyroid nodule biopsy (10/07/13) Social History Smoking/Tobacco Use Status: Former Tobacco Use Smoking risk assessment performed?: Yes Drug use: Never Substance use type: does not use Household members: spouse Housing: house Do you feel safe in your relationship?: Yes Additional Social history: Resident @ [facility]- unable to answer questions d/t baseline dementia Exam Psych Other: Luing in bed, dressed in hospital garb, no apparent distress. Fiddling with her blanket. Non responsive to direct questioning on multiple attempts. No notable rigidity, tremor, lip smacking, or dystonia is noted. Results Last Vital Signs Temp 37.1 C 04/28/21 15:35 Pulse 62 04/28/21 15:35 Resp 19 04/28/21 15:35 BP 107/57 L 04/28/21 15:35 Pulse Ox 95 04/28/21 15:35 Labs Result diagrams: 04/28/21 06:45 04/28/21 06:45 Labs: Laboratory Results - last 24 hr 04/28/21 04/28/21 06:45 06:45 WBC 6.72 D RBC 3.99 Hgb 10.7 L Hct 35.8 L MCV 89.7 MCH 26.8 L MCHC 29.9 L RDW 14.8 H Plt Count 277 MPV 11.8 H Sodium 146 H Potassium 3.7 Chloride 107 Carbon Dioxide 31.2 Anion Gap 7.8 BUN 35 H Creatinine 2.1 H Estimated GFR/1.73 m2 22.66 Glucose 112 H Calcium 8.2 L
--- NOTE | 2021-04-28 17:29 | PHA.REVIEW ---
Pharmacy Admission Review - Admission Clinical Review (Last Reviewed 04/28/21 @ 16:59 by oJse Maria Young MD) Elevated TSH (Acute) Acute kidney injury superimposed on chronic kidney disease (Acute) Acute dehydration (Acute) Altered mental status (Acute) Tongue swelling (Acute) Discharge planning issues (Acute) DVT prophylaxis (Acute) codeine Allergy (Unknown, Unverified 04/27/21 13:04) lisinopril Allergy (Unknown, Unverified 04/27/21 13:04) NSAIDS (Non-Steroidal Anti-Inflamma Allergy (Unknown, Unverified 04/27/21 13:04) sertraline Allergy (Unknown, Unverified 04/27/21 13:04) simvastatin Adverse Reaction (Unknown, Unverified 04/27/21 13:04) hydrocodone-acetominophen Adverse Reaction (Unknown, Uncoded 04/27/21 13:04) Resuscitation Status DNR/DNI Weight 69.2 kg - Renal Dosing Renal Dosing: BUN 35 mg/dL (7-18) H 04/28/21 06:45 Creatinine 2.1 mg/dL (0.55-1.02) H 04/28/21 06:45 Medications needing adjustments: Reviewed (Scr: 2.1, CrCl~16.89mL/min.) List of meds needing interventions: Gabapentin - recommended dosing 200-700mg once daily. Citalopram - use with caution. - Anticoagulation Anticoagulation: Hgb 10.7 g/dL (11.2-15.7) L 04/28/21 06:45 Hct 35.8 % (36.0-46.0) L 04/28/21 06:45 Plt Count 277 10^3/uL (130-400) 04/28/21 06:45 Creatinine 2.1 mg/dL (0.55-1.02) H 04/28/21 06:45 DVT Prophylaxis: Reviewed Medications: Enoxaparin (Enoxaparin 30mg SC Q24H.) - Opiate Usage Evaluate Pain Scale/Pains Meds: N/A - Relevant Labs Sodium 146 mmol/L (136-145) H 04/28/21 06:45 Potassium 3.7 mmol/L (3.5-5.1) 04/28/21 06:45 Chloride 107 mmol/L (98-107) 04/28/21 06:45 Magnesium 2.3 mg/dL (1.8-2.4) 04/27/21 14:55 Electrolytes, C-Reactive P, ESR: Reviewed - DM Control DM Control: Glucose 112 mg/dL (74-106) H 04/28/21 06:45 Insulin Dosing: N/A - Heart Failure/UT Heart Failure/UT: Troponin I < 50 ng/L (<or=60) 04/27/21 14:55 EF%, TUCKER's, B-Blockers, Diuretics: N/A - BP Control BP Control: Blood Pressure 107/57 Blood Pressure 118/78 If elevated: Reviewed - Qtc Review If Elevated: Reviewed - IV to PO Switch IV Medications: Reviewed - Home Meds Home Med List reviewed: Reviewed Relevent Home Meds Not ordered & why?: Furosemide 20mg Q48H not ordered d/t dehydration. Risperidone 0.5mg daily not ordered d/t possible dystonic reaction (Haloperidol PRN to be ordered if needed). - Current meds Current Medication Order Review: Reviewed - Comments Comments/Follow Ups: Continue to monitor renal function, labs, vitals and for medication changes (renal dose adjustments).
[2021-04-28 17:30] LABS: Creatine Kinase 57 U/L (26-192)
--- NOTE | 2021-04-28 18:34 | PDOC.CMIN ---
- If Service Date Differs Date of service: 04/28/21 Time of Service: 18:34 Care Management Initial Assess REASON FOR HOSPITALIZATION:: dehydration, mental status changes PAST MEDICAL HISTORY/PAST SURGICAL HISTORY:: All Active Problems. Hypothyroidism (Chronic). Acute dehydration (Acute). Altered mental status (Acute). Extrapyramidal and movement disorder (Acute). Tongue swelling (Acute). Discharge planning issues (Acute). DVT prophylaxis (Acute). Dehydration (Acute). Hypomagnesemia (Acute). Dementia (Chronic). Weight loss (Acute). Dementia (Chronic). Sensorineural hearing loss, bilateral (Acute 05/09/17). Palliative care patient (Acute 09/20/16). FOLLOWED BY DR. CERDA. Medical History. Dementia. DJD (degenerative joint disease). Schizophrenia. Surgical History. Arthroplasty (08/17/14). left hip. Cholecystectomy. 2003. Colectomy (11/28/01). CA, sigmoid. colonoscopy (02/18/08). ? 06/01/14. colonoscopy (10/03/12). ? 06/01/14. colonoscopy (10/07/13). ? 06/01/14. egd with dilitation (05/18/11). ? 06/01/14. Lobectomy (04/06/09). left lower lobe. thyroid nodule biopsy (10/07/13) PREVIOUS FUNCTIONAL STATUS/SOCIAL/FAMILY SUPPORTS:: Yoli currently resides at [facility]. Her , José Miguel, lives at their home in [place] with their son. Yoli has been at [facility] for about two years, as José Miguel was unable to continue to care for her at home. They have three sons together, and many grand children and great grand children. Yoli's needs are being met at the group home care facility where she lives, as she is not independent with her ADL's. CURRENT FUNCTIONAL STATUS:: Yoli was sitting up in her bed, with a 'busy blanket' on her lap that she uses intermittently while is present. Yoli's José Miguel, who prefers to be called Janes is in the room visiting. Janes reports that he is overall happy with the care that Yoli receives at [facility], but he has had a difficult time communicating with staff. He reported that he was not informed by [facility] that Yoli had been sent to the ED, but he was called by [facility] staff. He reported that Yoli has been declining while at the facility, which is to be expected, given her diagnosis of dementia. He stated that she no longer recognizes him, but he still tries to visit her weekly. He reported that she recently went to the [facility], which helped with her med management. Yoli had a psychiatric consult today, which she was not able to engage in. CM will continue to follow. ADVANCE DIRECTIVES:: on file at [facility]. Lisette Cunningham HCA. [phone] Has patient been provided with info about the portal/API?: No Did the patient sign up for the portal?: No CODE STATUS:: DNR/DNI INSURANCE COVERAGE / FINANCIAL ISSUES:: ANSHUL/ EUFEMIA CURRENT HOME/COMMUNITY SERVICES/EQUIPMENT:: Yoli lives at [facility]. PRIMARY CARE PHYSICIAN:: facility physician POTENTIAL DISCHARGE NEEDS:: Coordinated return to [facility]. PATIENT/FAMILY EDUCATION NEEDS:: Review discharge instructions and limitations, discussion of self care needs and goals of care. ANTICIPATED BARRIERS TO DISCHARGE:: None identified at this time. TRANSPORTATION:: Via facility w/c van, coordinated by [facility]. PLAN:: Anticipate Yoli will return to [facility] when medically cleared by . She will be transported via facility w/c van. She will follow up with the facility providers and her discharge plan of care. CM will continue to follow.
[2021-04-28 23:20] VITALS: BP 100/62; PULSE 64; RESP 19; TEMP 36.2; O2SAT 94
[2021-04-28] MEDS: SODIUM CHLORIDE 0.45% 1,000 ML 150 ML IV (23:44)
[2021-04-28] MEDS: SODIUM CHLORIDE 0.45% 250 ML IV (23:50)
[2021-04-29] MEDS: Levothyroxine 100 MCG TAB PO (05:45)
[2021-04-29] MEDS: SODIUM CHLORIDE 0.45% 1,000 ML 150 ML IV (05:46)
[2021-04-29 07:10] LABS: Abs Immature Grans 0.02 10^3/uL (0.0-0.06); Absolute Basophil Count 0.06 10^3/uL (0.0-0.2); Absolute Eosinophil Count 0.08 10^3/uL (0.0-0.7); Absolute Lymphocyte Count 1.33 10^3/uL (1.2-3.4); Absolute Monocyte Count 0.48 10^3/uL (0.1-0.8); Absolute Neutrophil Count 5.44 10^3/uL (1.2-6.7); Basophils % 0.8; Eosinophils % 1.1; HCT 31.7 % (36.0-46.0); HGB 9.5 g/dL (11.2-15.7); Immature Grans % 0.3; Lymphocytes % 17.9; MCH 27.1 pg (27.0-33.0); MCV 90.3 fL (80-95); MPV 11.3 fL (8.0-11.0); Monocytes % 6.5; Neutrophils % 73.4; Nucleated RBC 0 %; Platelet Count 236 10^3/uL (130-400); RBC 3.51 10^6/uL (3.93-5.22); RDW 14.8 % (11.7-14.6); RDW-SD 49.1 fL; WBC 7.41 10^3/uL (4.4-10.8)
[2021-04-29 07:21] LABS: Anion Gap 4.8 mmol/L (3-11); BUN 32 mg/dL (7-18); CO2 30.2 mmol/L (21.0-32.0); CREATININE 1.8 mg/dL (0.55-1.02); Calcium 7.5 mg/dL (8.5-10.1); Chloride 102 mmol/L (98-107); Estimated GFR 27.07 (mL/min/1.73m2); Glucose 93 mg/dL (74-106); Potassium 3.3 mmol/L (3.5-5.1); Sodium 137 mmol/L (136-145)
[2021-04-29 07:33] LABS: Magnesium 1.8 mg/dL (1.8-2.4); TSH 58.31 uIU/mL (0.36-3.74)
[2021-04-29] MEDS: Gabapentin 100 MG CAP 300 MG PO (07:49)
[2021-04-29] MEDS: Citalopram 10 MG TAB 20 MG PO (07:49)
[2021-04-29] MEDS: Benztropine 1 MG TAB PO ×2 (07:49→19:57)
[2021-04-29] MEDS: Omeprazole 20 MG CAPCR PO (07:49)
[2021-04-29 07:50] VITALS: BP 104/65; PULSE 61; RESP 15; TEMP 36.5; O2SAT 95
[2021-04-29] MEDS: Acetaminophen 500 MG TAB PO (08:40)
--- NOTE | 2021-04-29 09:43 | IN_ITS ---
Date of service: 04/29/21 Time of Service: 08:40 PT Notes Visit Reasons: Dehydration,Mental Status Changes Inpatient Physical Therapy Evaluation Date: April 29, 2021 Referring Doctor: Olga Powers PT Orders: PT CONSULT: limited ability Precautions: Contact Patient Profile/Admitting Diagnosis: Yoli is an 81-year-old female whom is [facility] admitted secondary to dehydration and altered mental status. She has schizophrenia and dementia. PMHX: (Updated 04/27/21 @ 20:56 by Jean Johnosn MD) Hypothyroidism (Chronic) Acute dehydration (Acute) Altered mental status (Acute) Extrapyramidal and movement disorder (Acute) Tongue swelling (Acute) Discharge planning issues (Acute) DVT prophylaxis (Acute) Dehydration (Acute) Hypomagnesemia (Acute) Dementia (Chronic) Weight loss (Acute) Dementia (Chronic) Sensorineural hearing loss, bilateral (Acute 05/09/17) Palliative care patient (Acute 09/20/16) FOLLOWED BY DR. CERDA Medical History (Updated 04/27/21 @ 20:56 by Jean Johnson MD) Dementia DJD (degenerative joint disease) Schizophrenia Surgical History Arthroplasty (08/17/14) left hip Cholecystectomy 2004 Colectomy (11/28/01) CA, sigmoid colonoscopy (02/18/08) ? 06/01/14 colonoscopy (10/03/12) ? 06/01/14 colonoscopy (10/07/13) ? 06/01/14 egd with dilitation (05/18/11) ? 06/01/14 Lobectomy (04/06/09) left lower lobe thyroid nodule biopsy (10/07/13) Social History/Home Situation: Yoli currently resides at [facility].Yoli has been at [facility] for about two years. Yoli's needs are being met at the longterm care facility where she lives, as she is not independent with her ADL's. Current Functional Limitations: The patient is noncommunicative. Unsure of her previous functional abilities at [facility]. Subjective: Yoli was lying in bed at time of PT consult with nursing in room. Yoli was noncommunicative with me during examination. Objective: General Observation: IV, catheter Mental Status: Noncommunicative, altered mental status ROM: Right Upper Extremity: Tolerates WFL PROM R UE. Does lift shoulder actively to 90 degrees. Left Upper Extremity: Tolerates WFL PROM L UE. Right Lower Extremity: Hip flexion 90 degrees, knee flexion 90 degrees, knee extension 10 degrees, DF neutral Left Lower Extremity: Hip flexion 90 degrees, knee flexion 90 degrees, knee extension 10 degrees, DF to neutral ROM observed throughout session. Unable to perform complete examination for patient did pull away from me Strength: Right Upper Extremity: Unable to assess for unable to follow command. Left Upper Extremity: Unable to assess for unable to follow command Right Lower Extremity: Independent SLR. Unable to assess other myotomes due to being unable to follow command Left Lower Extremity: Independent SLR.Unable to assess other myotomes due to being unable to follow command Bed Mobility/Transfers: supine-sit: mod A x1 sit-stand: Emili x2 with cueing provided bed-chair: SBA x2 Gait: FWW, no assistive device, SBA x2 to bedside chair Balance: Static Sitting: Good Dynamic Sitting: Fair Static Standing: Good Dynamic Standing: Fair Special Tests: Mobility Limitations Standardized Measure [facility] AM-PAC 6 clicks Basic Mobility Inpatient Short Form: Raw Score: 17 CMS Score: 50.57% Informed Consent/Education: Patient instructed in purpose of PT consult and plan of care. Assessment: Patient is a 81 year old female referred to physical therapy services with the diagnosis of dehydration and altered mental status. Patient presents with clinical signs and symptoms consistent with diagnosis, as demonstrated by the following impairment level findings:Noncommunicative, unable to follow command, limited functional transfers and mobility requiring assistance with transfers and mobility. Ko Kent might be at her baseline functional level. Patient is assessed as a Moderate 63012 complexity based on the following: History: As above Examination: As above Presentation: Evolving Decision Making: Moderate Plan of Care/Treatment Plan: Discharge from PT services at this time. Patient will return to [facility] once medically cleared for continued longterm care. Ko Kent is probably at her baseline level of function at this time. DISCHARGE RECOMMENDATIONS: Nursing Home Care TREATMENT CODE/[place]: [id number] 20 minutes [employer]ST[employer] [facility] Disclaimer: This note was created using [employer] voice recognition software. It was reviewed for major content. However, there may be multiple small discrepancies and errors due to the voice recognition aspects of the software.
[2021-04-29] MEDS: Potassium Chloride Liquid 20 MEQ PKT 40 MEQ PO (09:47)
--- NOTE | 2021-04-29 11:47 | PGE_ITS ---
Date of Service Date of service: 04/29/21 Time of Service: 11:47 Assessment and Plan Assessment and plan (1) Tongue swelling: Status: Acute Assessment and plan: resolving. steroids stopped. question of whether or not this is medication related or d/t tongue biting. continue to monitor. hold risperdone for now. (2) Altered mental status: Status: Acute Assessment and plan: unclear as to her baseline cognitive function. Not sure whether this is psychosis, metabolic encephalopathy or worsening dementia or dystonic reaction to meds. Need more information from [facility] as to her baseline cognitive function. Qualifiers: Altered mental status type: transient alteration of awareness Qualified Code(s): R40.4 - Transient alteration of awareness (3) Extrapyramidal and movement disorder: Status: Resolved Assessment and plan: per Dr. Powers's discussion w/ Dr. Young yesterday Symptoms observed in the ED yesterday were probably c/w dystonia. (4) Acute dehydration: Status: Acute Assessment and plan: improving but not resolved. BUN 32 and creatinine 1.8. Uncertain as to what her baseline level is since we do not have any studies from earlier this year. Will continue hydrate for another 24hr. she is starting to drink and eat per nursing. (5) Acute kidney injury superimposed on chronic kidney disease: Status: Acute Assessment and plan: as above. monitor urine output w/ pete, repeat BMP in the morning. cont. hydration w/ iv fluids for another 24 hr. (6) Elevated TSH: Status: Acute Assessment and plan: TSH is significantly elevated. This is not d/t acute stress phase but represents either under dosing of her levothyroxine or d/t poor absorption possibly d/t poor timing of her meds. (7) Schizophrenia: Assessment and plan: as per Dr. Powers's notes. Need more info from [facility] as to whether or not she was taking her risperdone regularly or spitting the pills out before she was switched to liquid. Hold any resumption for now until more information is obtained. However, if need to control for agitaiton acutely can use prn haldol. (8) Dementia: Assessment and plan: Psychiatry consulted for recommendations on medication management. Has previously required a kaleb psych stay at [facility] in .. (9) DVT prophylaxis: Status: Acute Assessment and plan: SC enoxaparin (10) Discharge planning issues: Status: Acute Assessment and plan: DNR/DNI Consult PT and palliative care Subjective Subjective Interval history since last seen: Patient is still confused although she is more alert today. She mumbles incoherent words. She does not follow commands/instructions for me although nursing reports that she walked for P.T. this morning. Exam Narrative Exam Narrative: Elderly white female lying in bed in semi-Ansari position Heent: tongue still appears slightly swollen; Mallampati class 3 Lungs: clear; no stridor or wheezing Heart: RRR Abdomen; soft, nontender, normal bowel sounds Extremities: no edmea Neuro: nonfocal; moves all 4 extremities voluntarily and with purpose; no facial asymmetry; full EOMI, speech is clear although not making any sense Objective Last Vital Signs Temp 36.5 C 04/29/21 07:50 Pulse 61 04/29/21 07:50 Resp 15 04/29/21 07:50 BP 104/65 04/29/21 07:50 Pulse Ox 95 04/29/21 07:50 Laboratory Results - last 24 hr 04/28/21 04/29/21 04/29/21 07:45 06:43 06:43 WBC RBC Hgb Hct MCV MCH MCHC RDW Plt Count MPV Immature Gran % Neutrophils % Lymphocytes % Monocytes % Eosinophils % Basophils % Nucleated RBC % Absolute Neutrophils Absolute Lymphocytes Absolute Monocytes Absolute Eosinophils Absolute Basophils Sodium 137 Potassium 3.3 L Chloride 102 Carbon Dioxide 30.2 Anion Gap 4.8 BUN 32 H Creatinine 1.8 H Estimated GFR/1.73 m2 27.07 Glucose 93 Calcium 7.5 L Magnesium 1.8 Creatine Kinase 57 TSH 58.31 H 04/29/21 06:43 WBC 7.41 RBC 3.51 L Hgb 9.5 L Hct 31.7 L MCV 90.3 MCH 27.1 MCHC 30.0 L RDW 14.8 H Plt Count 236 MPV 11.3 H Immature Gran % 0.3 Neutrophils % 73.4 Lymphocytes % 17.9 Monocytes % 6.5 Eosinophils % 1.1 Basophils % 0.8 Nucleated RBC % 0 Absolute Neutrophils 5.44 Absolute Lymphocytes 1.33 Absolute Monocytes 0.48 Absolute Eosinophils 0.08 Absolute Basophils 0.06 Sodium Potassium Chloride Carbon Dioxide Anion Gap BUN Creatinine Estimated GFR/1.73 m2 Glucose Calcium Magnesium Creatine Kinase TSH Reviewed Pertinent PMH: Yes Objective Narrative Objective Narrative: CT head showed no acute findings but diffuse microvascular white matter changes c/w chronic ischemic disease. CT neck also showed no acute findings. CXR suggested left retrocardiac basilar infiltrate although clinically she is not behaving like a pneumonis (i.e. no fever or dyspnea or hypoxemia). May be just atelectasis (will order IS and acapella)
[2021-04-29] MEDS: Lactated Ringers 1,000 ML 85 ML IV (12:51)
--- NOTE | 2021-04-29 14:33 | CMPROGNOTE_ITS ---
- If Service Date Differs Date of service: 04/29/21 Time of Service: 14:33 Care Management Progress Note S/O: Per report, Yoli may be discharge ready today. CM contacted admissions at [facility] to attempt to arrange transport, but they are unable to accept her back today, as it is an observed holiday. Per PT, she is likely at her baseline level of functioning. She will remain at [facility] until Sunday, and if she is medically cleared to be discharged at that time, CM will coordinate her return to [facility]. Her would like to be kept updated, and would like to be notified once she is ready to transition back to the facility where she resides. CM will continue to follow. A: Yoli is an 81 year old female admitted to [facility] on 04/27/21 with dehydration, mental status changes. P: Yoli will return to [facility], likely on Sunday, if she is medically cleared at that time by . She will transport via facility w/c van. She will follow up with the facility providers and her discharge plan of care. CM will continue to follow.
[2021-04-29 15:00] VITALS: PULSE 54; RESP 16; TEMP 36.3; O2SAT 94
[2021-04-29] MEDS: Potassium Chloride Liquid 20 MEQ PKT PO (19:57)
[2021-04-29] MEDS: Gabapentin 300 MG CAP PO (19:57)
[2021-04-29] MEDS: Enoxaparin 30 MG/0.3 ML SYR SC (22:45)
[2021-04-29 23:18] VITALS: BP 95/58; PULSE 60; RESP 16; TEMP 36; O2SAT 95
[2021-04-30] MEDS: Lactated Ringers 1,000 ML 85 ML IV ×2 (00:49→12:16)
[2021-04-30] MEDS: Levothyroxine 112 MCG TAB PO (06:16)
[2021-04-30 08:00] VITALS: BP 90/50; PULSE 65; RESP 17; TEMP 36.7; O2SAT 96
[2021-04-30] MEDS: Gabapentin 300 MG CAP PO ×2 (08:51→21:10)
[2021-04-30] MEDS: Benztropine 1 MG TAB PO ×2 (08:51→21:10)
[2021-04-30] MEDS: Potassium Chloride Liquid 20 MEQ PKT PO ×2 (08:51→21:11)
[2021-04-30] MEDS: Omeprazole 20 MG CAPCR PO (08:51)
[2021-04-30] MEDS: Citalopram 10 MG TAB 20 MG PO (08:52)
[2021-04-30 15:00] VITALS: BP 100/50; PULSE 60; RESP 19; TEMP 36.6; O2SAT 96
--- NOTE | 2021-04-30 15:52 | PGE_ITS ---
Date of Service Date of service: 04/30/21 Time of Service: 15:52 Assessment and Plan Assessment and plan (1) Tongue swelling: Status: Resolved Assessment and plan: appears to be resolved. still not clear as to what caused this whether trauma or medication related. Nursing attemtpted to get her med list from [facility] and the list is incomplete. it did not even have her risperdol dose listed, although a SOAP note did indicate that it was added for control of aggression/agitation on the patient's part toward staff (2) Altered mental status: Status: Acute Assessment and plan: it seems that per her SOAP note from [facility] she is probably at her baseline. They indicated that she is pretty much nonverbal. given her dementia and schizophrenia, I do not plan to work this up any further. I think that she can return to [facility] at anytime Qualifiers: Altered mental status type: transient alteration of awareness Qualified Code(s): R40.4 - Transient alteration of awareness (3) Extrapyramidal and movement disorder: Status: Resolved Assessment and plan: her EPS symptoms have been treated in past w/ prn benadryl (4) Acute dehydration: Status: Acute Assessment and plan: labs were not done this a.m. but she is eating and drinking so given that in the past she has required lasix for pulmonary edema, I will stop her iv fluids and advance her diet. I will repeat her BMP in the a.m. (5) Acute kidney injury superimposed on chronic kidney disease: Status: Acute Assessment and plan: as above. monitor urine output w/ pete, repeat BMP in the morning. (6) Elevated TSH: Status: Acute Assessment and plan: TSH is significantly elevated. This is not d/t acute stress phase but represents either under dosing of her levothyroxine or d/t poor absorption possibly d/t poor timing of her meds. levothyroxine increased to 112 mcg daily (7) Schizophrenia: Assessment and plan: still waiting an acurate med list [facility]. cont. her citalopram but still holding on her risperdone (8) Dementia: Assessment and plan: Psychiatry consulted for recommendations on medication management. Has previously required a kaleb psych stay at [facility] in [place] (9) DVT prophylaxis: Status: Acute Assessment and plan: SC enoxaparin (10) Discharge planning issues: Status: Acute Assessment and plan: DNR/DNI Consult PT and palliative care will dc back to [facility] tomorrow if they will take her otherwise dc on Sunday Subjective Subjective Interval history since last seen: Patient is more alert and is verbal but does not make any sense. She was angry at me when I examined her legs/feet and said God damn you. However when I tried to engage in converstation w/ her she could not express to me her wants or needs. She would look at me in a quizzical look but not give me any direction as to what she needed or wanted. She would pick at her blankets and sheets. She does not follow commands. Nursing reports that she tolerated a clear liquid diet and gave her meds in pudding. We will upgrade her diet to minced/moist w/ thin liquids. Exam Narrative Exam Narrative: Elderly female who verbalizes in coherent words but does not make any sense and she does not engage in any conversation and does not seem able to verbalize her needs/wants Some akesthesia w/ movement of her legs and feet Patient picks at the blankets and sheets HEENT: tongue edema seems to be resolved Lungs: clear anteriorly w/ some basilar rales; no rhonchi Heart: RRR Abdomen: soft, nontender Extremities w/out edema Objective Last Vital Signs Temp 36.6 C 04/30/21 15:00 Pulse 60 04/30/21 15:00 Resp 19 04/30/21 15:00 BP 100/50 L 04/30/21 15:00 Pulse Ox 96 04/30/21 15:00
[2021-04-30] MEDS: Enoxaparin 30 MG/0.3 ML SYR SC (22:31)
[2021-05-01 00:08] VITALS: BP 98/53; PULSE 66; RESP 18; TEMP 36.4; O2SAT 97
[2021-05-01] MEDS: Levothyroxine 112 MCG TAB PO (06:14)
[2021-05-01 07:27] LABS: Abs Immature Grans 0.02 10^3/uL (0.0-0.06); Absolute Basophil Count 0.06 10^3/uL (0.0-0.2); Absolute Eosinophil Count 0.32 10^3/uL (0.0-0.7); Absolute Lymphocyte Count 1.24 10^3/uL (1.2-3.4); Absolute Monocyte Count 0.63 10^3/uL (0.1-0.8); Absolute Neutrophil Count 4.16 10^3/uL (1.2-6.7); Basophils % 0.9; HCT 33.1 % (36.0-46.0); Immature Grans % 0.3; Lymphocytes % 19.3; MCH 26.7 pg (27.0-33.0); MCHC 30.2 % (32.0-36.0); MCV 88.5 fL (80-95); MPV 11.9 fL (8.0-11.0); Monocytes % 9.8; Neutrophils % 64.7; Nucleated RBC 0 %; Platelet Count 264 10^3/uL (130-400); RBC 3.74 10^6/uL (3.93-5.22); RDW 14.4 % (11.7-14.6); RDW-SD 46.7 fL; WBC 6.43 10^3/uL (4.4-10.8)
[2021-05-01 07:43] LABS: Anion Gap 6.4 mmol/L (3-11); BUN 22 mg/dL (7-18); CO2 28.6 mmol/L (21.0-32.0); CREATININE 1.6 mg/dL (0.55-1.02); Calcium 7.7 mg/dL (8.5-10.1); Chloride 106 mmol/L (98-107); Estimated GFR 31.01 (mL/min/1.73m2); Glucose 84 mg/dL (74-106); Potassium 4.3 mmol/L (3.5-5.1); Sodium 141 mmol/L (136-145)
[2021-05-01 07:47] VITALS: BP 103/71; PULSE 70; RESP 19; TEMP 36.8; O2SAT 93
[2021-05-01] MEDS: Benztropine 1 MG TAB PO ×2 (08:30→20:51)
[2021-05-01] MEDS: Potassium Chloride Liquid 20 MEQ PKT PO (08:30)
[2021-05-01] MEDS: Polyethylene Glycol 3350 17 GM PACKET PO (08:30)
[2021-05-01] MEDS: Citalopram 10 MG TAB 20 MG PO (08:31)
[2021-05-01] MEDS: Omeprazole 20 MG CAPCR PO (08:31)
[2021-05-01] MEDS: Normal Saline Flush 10 ML SYR IVP ×2 (08:31→20:52)
[2021-05-01] MEDS: Gabapentin 300 MG CAP PO ×2 (08:31→20:52)
--- NOTE | 2021-05-01 12:50 | PGE_ITS ---
Date of Service Date of service: 05/01/21 Time of Service: 11:20 Assessment and Plan Assessment and plan (1) Tongue swelling: Start date: 05/01/21 Start time: 11:20 Status: Resolved Assessment and plan: appears to be resolved. still not clear as to what caused this whether trauma or medication related. Nursing attempted to get her med list from [facility] and the list is incomplete. it did not even have her risperdol dose listed, although a SOAP note did indicate that it was added for control of aggression/agitation on the patient's part toward staff Dr Kong psychiatry, recommends haldol for aggression/agitation po or IM not risperdol. (2) Extrapyramidal and movement disorder: Start date: 05/01/21 Start time: 11:20 Status: Resolved Assessment and plan: her EPS symptoms have been treated in past w/ prn benadryl (3) Altered mental status: Start date: 05/01/21 Start time: 11:20 Status: Resolved Assessment and plan: Nurse spoke with this morning, patient awake, and per at her baseline She did follow command to take deep breaths. She did say hi when spoken to, otherwise some screaming out. She is ready for discharge back to /. They will not accept her today. She will be discharged back tomorrow. Qualifiers: Altered mental status type: transient alteration of awareness Qualified Code(s): R40.4 - Transient alteration of awareness (4) Elevated TSH: Start date: 05/01/21 Start time: 11:20 Status: Acute Assessment and plan: TSH is significantly elevated. This is not d/t acute stress phase but represents either under dosing of her levothyroxine or d/t poor absorption possibly d/t poor timing of her meds. levothyroxine increased to 112 mcg daily (5) Acute dehydration: Start date: 05/01/21 Start time: 11:20 Status: Resolved Assessment and plan: Creatinine better than baseline. Will remove pete. She appears well hydrated, Eating and drinking for staff Voiding trial. If she requires replacement of pete catheter than she can be discharged with catheter and have outpatient f/u with Dr. Winston (6) Acute kidney injury superimposed on chronic kidney disease: Start date: 05/01/21 Start time: 11:20 Status: Resolved Assessment and plan: as above. (7) Schizophrenia: Start date: 05/01/21 Start time: 11:20 Assessment and plan: cont. her citalopram discontinue risperidone based on recommendations by psychiatry and haldol po or IM if needed for aggression/aggitation Qualifiers: Schizophrenia type: unspecified Qualified Code(s): F20.9 - Schizophrenia, unspecified (8) Dementia: Start date: 05/01/21 Start time: 11:20 Assessment and plan: Psychiatry consulted recommends low dose haloperidol 1 mg IM, can give PO can be provided Q4H up to 4 time in 24 hours to promote safety and patient calm. Qualifiers: Dementia type: unspecified type Dementia behavioral disturbance: with behavioral disturbance Qualified Code(s): F03.91 - Unspecified dementia with behavioral disturbance (9) DVT prophylaxis: Start date: 05/01/21 Start time: 11:20 Status: Acute Assessment and plan: SC enoxaparin (10) Discharge planning issues: Start date: 05/01/21 Start time: 11:20 Status: Acute Assessment and plan: DNR/DNI Consult PT and palliative care will dc back to [facility] tomorrow discussed with Dr. Buck Subjective Subjective Patient reports: other Interval history since last seen: Patient alert. At baseline. Per Dr. Kong note, likely combination of risperadol and celexa that caused this reaction. She should not be on both. Risperdol has been stopped. She has returned to baseline. He recommends haldol prn for behavior this can be given IM or PO if needed. She can be discharged back to [facility] tomorrow. Will d/c pete. Voiding trial. If she fails she can be discharged with pete and be seen as an outpatient by Dr. Winston. She yells out when being moved, does not follow many commands. Nurse spoke with this morning and stated this is her baseline. Exam Narrative Exam Narrative: Elderly female who verbalizes in coherent words but does not make any sense and she does not engage in any conversation and does not seem able to verbalize her needs/wants, tardive dyskinesa, she does listen when being told to take deep breaths Some akesthesia w/ movement of her legs and feet Patient picks at the blankets and sheets HEENT: tongue edema seems to be resolved Lungs: clear anteriorly w/ some basilar rales posteriorly to right side; no rhonchi Heart: RRR Abdomen: soft, nontender Extremities w/out edema Objective Last Vital Signs Temp 36.8 C 05/01/21 07:47 Pulse 70 05/01/21 07:47 Resp 19 05/01/21 07:47 BP 103/71 05/01/21 07:47 Pulse Ox 93 05/01/21 07:47 Laboratory Results - last 24 hr 05/01/21 05/01/21 06:18 06:18 WBC 6.43 RBC 3.74 L Hgb 10.0 L Hct 33.1 L MCV 88.5 MCH 26.7 L MCHC 30.2 L RDW 14.4 Plt Count 264 MPV 11.9 H Immature Gran % 0.3 Neutrophils % 64.7 Lymphocytes % 19.3 Monocytes % 9.8 Eosinophils % 5.0 Basophils % 0.9 Nucleated RBC % 0 Absolute Neutrophils 4.16 Absolute Lymphocytes 1.24 Absolute Monocytes 0.63 Absolute Eosinophils 0.32 Absolute Basophils 0.06 Sodium 141 Potassium 4.3 D Chloride 106 Carbon Dioxide 28.6 Anion Gap 6.4 BUN 22 H D Creatinine 1.6 H Estimated GFR/1.73 m2 31.01 Glucose 84 Calcium 7.7 L
[2021-05-01 14:28] VITALS: PULSE 65; RESP 18; TEMP 36.3; O2SAT 95
[2021-05-01 15:56] VITALS: BP 128/82; PULSE 68; RESP 19; TEMP 36.5; O2SAT 95
[2021-05-01 16:26] LABS: Source Nasal/Nares
[2021-05-01 18:07] LABS: COVID-19 PCR Negative (Negative)
[2021-05-01] MEDS: diphenhydrAMINE 25 MG CAP PO (20:51)
[2021-05-01] MEDS: Enoxaparin 30 MG/0.3 ML SYR SC (22:39)
[2021-05-01 22:50] VITALS: BP 114/59; PULSE 75; RESP 19; TEMP 36.9; O2SAT 95
[2021-05-02] MEDS: Levothyroxine 112 MCG TAB PO (05:16)
[2021-05-02 08:07] VITALS: BP 112/53; PULSE 72; RESP 16; TEMP 36.1; O2SAT 93
[2021-05-02] MEDS: Citalopram 10 MG TAB 20 MG PO (08:57)
[2021-05-02] MEDS: diphenhydrAMINE 25 MG CAP PO (08:58)
[2021-05-02] MEDS: Omeprazole 20 MG CAPCR PO (08:58)
[2021-05-02] MEDS: Gabapentin 300 MG CAP PO (08:58)
[2021-05-02] MEDS: Benztropine 1 MG TAB PO (08:58)
--- NOTE | 2021-05-02 10:13 | DSE_ITS ---
Date of service: 05/02/21 Time of Service: 10:13 DS: Diagnosis Discharge Diagnosis (1) Tongue swelling: Status: Resolved (2) Extrapyramidal and movement disorder: Status: Resolved (3) Altered mental status: Status: Resolved (4) Elevated TSH: Status: Acute (5) Acute dehydration: Status: Resolved (6) Acute kidney injury superimposed on chronic kidney disease: Status: Resolved (7) Schizophrenia: (8) Dementia: Discharge Plan Disposition Patient Disposition: SNF (LEVEL 1) [facility] Condition: Improving Discharge Details Reason For Visit: Dehydration,Mental Status Changes Admit Date/Time: 04/28/21 16:50 Admit Provider: Jean Johnson Attending Provider: Jean Johnson Primary Care Provider: [facility] Course Hospital Course: This 81-year-old female is a resident at the [facility]. She has schizophrenia and dementia. She presented to emergency department with lip smacking and biting her tongue and other movements and was given benztropine with reported improvement of that extra movements however her tongue was quite swollen. She did have a medical consultation from the day hospitalist recommend that she have ENT evaluation. That evaluation was done by phone and a CT scan was done of her neck which did not show any abnormalities. The patient was given dexamethasone and famotidine and her tongue is now improved and in her mouth. on admission the patient is noncommunicative and has been combative at times with the staff. There has been no stridor or respiratory distress. Laboratory evaluation did show an elevated creatinine and BUN and TSH. Her CT scan of the neck showed no definite mass nor lymphadenopathy seen, there is no airway obstruction. She was admitted to med/surg under hospitalist services for further monitoring and management. She continued to improve. She was evaluated by Dr Young who recommended discontinuing risperidone. She was started on cogentin, which could be slowly weaned overtime. This will be deferred to outpatient team. She is tolerating good PO, edema resolved. and she is medically stable and ready to be discharged back to rehab. discharge discussed with DR May Home Meds and New Rx's Prescriptions: New diphenhydramine HCl 25 mg Capsule 25 mg PO BID Qty: 0 RF: 0 benztropine 1 mg Tablet 1 mg PO BID Qty: 0 RF: 0 Continued omeprazole magnesium [Prilosec OTC] 20 MG tablet,delayed release (DR/EC) 20 mg PO DAILY RF: 0 acetaminophen [Mapap Extra Strength] 500 MG tablet 500 mg PO TID RF: 0 acetaminophen 325 mg Tablet 650 mg PO Q6H PRN PRNRF: 0 citalopram 10 mg Tablet 20 mg PO DAILY RF: 0 guaifenesin 100 mg/5 mL Liquid 200 mg PO Q4H PRNRF: 0 levothyroxine 88 mcg Tablet 88 mcg PO DAILY RF: 0 magnesium hydroxide [Milk of Magnesia] 400 mg/5 mL Suspension 30 ml PO DAILY PRNRF: 0 bisacodyl [Dulcolax (bisacodyl)] 10 mg Suppository 10 mg ME DAILY PRNRF: 0 furosemide 20 mg Tablet 20 mg PO Q OTHER DAY RF: 0 gabapentin 100 mg Capsule 300 mg PO TID RF: 0 Discontinued risperidone 1 mg/mL solution RF: 0 risperidone 1 mg/mL solution 0.5 mg PO TID RF: 0 Discharge Instructions Instructions: Dehydration (DC) Stand Alone Forms: Nursing Discharge Form [facility] - (routine follow up per protocol) Activity:: Activity as Tolerated Equipment/Supplies:: No Equipment Needed Diet:: As Tolerated Discharge Orders Discharge Orders: Discharge Order (Routine); Ordered 05/02/21 Ordered By: Aura Zayas Discharge Data Discharge Date/Time-TO BE ENTERED AT DEPARTURE: 05/02/21 11:51 DS: Summary Time Spent with Patient providing and/or coordinating discharge services: Greater than 30 minutes Status at Discharge Functional status at discharge: independent ambulation Overall status at discharge: patient is progressing back to baseline Mental Status: mental status grossly normal Speech and Movement: speech and movement normal Mood: congruent mood Affect: normal affect Exam Const General: comfortable and no acute distress Nutritional Appearance: obese HENMT Head: normal to inspection Mouth: oral mucosae normal and lip normal Eyes General: appearance normal, both eyes and all related structures Conjunctivae: conjunctivae normal Pupils: PERRL Neck Neck: normal visual inspection and no lymphadenopathy Resp Effort & Inspection: normal respiratory effort Auscultation: clear to auscultation bilaterally, no rales, no rhonchi and no wheezes Cardio Jugular venous pressure: no JVD Rate: regular rate Rhythm: regular rhythm Heart Sounds: S1 normal, no gallops and no murmurs GI Inspection: normal to inspection Palpation: soft, no hepatosplenomegaly, not firm, no guarding and nontender Neuro Motor: muscle tone normal throughout and no fasciculations Sensory Exam: no sensory deficits noted Extrem General: normal to inspection, no pedal edema and no calf tenderness Psych Mental Status: mental status grossly normal Speech and Movement: speech and movement normal Mood: congruent mood Affect: normal affect DS: Data Vitals/I&O Vitals and I&O: Vital Signs Temperature 36.1 C L 05/02/21 08:07 Temperature Source Tympanic 05/02/21 08:07 Pulse 72 05/02/21 08:07 Pulse Rhythm Regular 05/01/21 16:40 Pulse 64 04/27/21 20:30 Respiratory Rate 16 05/02/21 08:07 Respiratory Effort 05/01/21 16:40 Respiratory Depth Normal 05/01/21 16:40 Respiratory Pattern Normal 05/01/21 16:40 Blood Pressure 112/53 L 05/02/21 08:07 Blood Pressure Position Supine 04/27/21 12:58 Pulse Oximetry 93 05/02/21 08:07 Oxygen Delivery Method Room Air 05/02/21 08:07 Oxygen Flow Rate 0 05/02/21 08:07 Pain Level 0 05/01/21 00:08 Comment 04/29/21 23:18 Intake & Output 05/01/21 05/01/21 05/02/21 11:59 23:59 11:59 Intake Total 1250 / 1360 110 / 1360 Output Total 800 / 800 Balance 450 / 560 110 / 560 Intake: IV 1000 / 1010 10 / 1010 Oral 250 / 350 100 / 350 Output: Urine 800 / 800 Other: Urine Color Yellow Yellow Urine Appearance Clear Clear Comment post moderate incont. in breif Stool Size Small Small Moderate Stool Characteristics Soft Soft Soft Brown Brown Voiding Methods Diaper Incontinent Data Completed and Pending Labs on day of discharge: Labs from last 24 hours 05/01/21 16:02 COVID-19 Source Nasal/Nares SARS-CoV-2 (PCR) Negative PFSH All Active Problems (Updated 05/01/21 @ 13:05 by Hillary Paredes NP) Elevated TSH (Acute) Hypothyroidism (Chronic) Discharge planning issues (Acute) DVT prophylaxis (Acute) Dehydration (Acute) Hypomagnesemia (Acute) Dementia (Chronic) Weight loss (Acute) Dementia (Chronic) Sensorineural hearing loss, bilateral (Acute 05/09/17) Palliative care patient (Acute 09/20/16) FOLLOWED BY DR. CERDA Medical History Dementia DJD (degenerative joint disease) Schizophrenia Surgical History Arthroplasty (08/17/14) left hip Cholecystectomy 2004 Colectomy (11/28/01) CA, sigmoid colonoscopy (02/18/08) ? 06/01/14 colonoscopy (10/03/12) ? 06/01/14 colonoscopy (10/07/13) ? 06/01/14 egd with dilitation (05/18/11) ? 06/01/14 Lobectomy (04/06/09) left lower lobe thyroid nodule biopsy (10/07/13) Social History Smoking/Tobacco Use Status: Former Tobacco Use Smoking risk assessment performed?: Yes Drug use: Never Substance use type: does not use Household members: spouse Housing: house Do you feel safe in your relationship?: Yes Additional Social history: Resident @ [facility] [employer]- unable to answer questions d/t baseline dementia
--- NOTE | 2021-05-02 11:01 | CMDISCH_ITS ---
- If Service Date Differs Date of service: 05/02/21 Time of Service: 11:01 LACE Index Scoring Tool - Questions: Length of Stay (in days): 4 - 6 Acuity (Admit via E.D.?): Yes Comorbidities: Dementia E.D. Visits: 1 - Answers: Total Score: 11 Risk of Readmission: High Risk Care Management Discharge Reason for Hospitalization: dehydration, mental status changes Discharge Plan: Yoli will return to [facility] when medically cleared by . She will be transported via [facility]. Patient/Family Education Needs: Review discharge instructions, discuss Ask Me Three. Services Needed at Discharge: Correction Facility ([facility] ), Transportation ([facility])
[2021-05-05 12:37] LABS: 9-Hydroxyrisperidone 26.7 ng/ml; Risperidone (Risperdal) 8.6 ng/ml
== END 2021-05-02 11:51 | disposition skilled nursing facility (03) | DRG 607 ==
LOC: ER 19:43 → MS 04-28 09:11
PROVIDERS: Internal Medicine; Nurse Practitioner Family; Physician Assistant; Admitting Provider Family Medicine; Emergency Provider Emergency Medicine; Visit Provider Family Medicine
DX: R22.0 Localized swelling, mass and lump, head (principal); E87.0 Hyperosmolality and hypernatremia; N17.9 Acute kidney failure, unspecified; F03.91 Unspecified dementia, unspecified severity, with behavioral disturbance; T43.595A Adverse effect of other antipsychotics and neuroleptics, initial encounter; T43.225A Adverse effect of selective serotonin reuptake inhibitors, initial encounter; R40.4 Transient alteration of awareness; Z66 Do not resuscitate; G25.89 Other specified extrapyramidal and movement disorders; F20.9 Schizophrenia, unspecified; E86.0 Dehydration; E83.42 Hypomagnesemia; H90.3 Sensorineural hearing loss, bilateral; E03.9 Hypothyroidism, unspecified; N18.9 Chronic kidney disease, unspecified; Y92.129 Unspecified place in nursing home as the place of occurrence of the external cause
CPT/HCPCS: 36415; 80048; 80053; 82542; 82550; 85027; 87081; 87635; 93005; 96361; 96372; 96374; 96375; 97162; 99285; 70450; 70490; 71045; 81003; 83735; 84439; 84443; 84484; 85025; 93010; 99214; 99219; 99232; 99233; 99239; G0378; J0515; J1100; J1650; J7512

== ENCOUNTER 2021-05-07 18:20 | Outpatient (REF) | payer SELFPAY ==
[2021-05-07 19:59] LABS: Abs Immature Grans 0.03 10^3/uL (0.0-0.06); Absolute Basophil Count 0.08 10^3/uL (0.0-0.2); Absolute Eosinophil Count 0.29 10^3/uL (0.0-0.7); Absolute Lymphocyte Count 1.37 10^3/uL (1.2-3.4); Absolute Monocyte Count 0.51 10^3/uL (0.1-0.8); Absolute Neutrophil Count 5.58 10^3/uL (1.2-6.7); Eosinophils % 3.7; HCT 35.5 % (36.0-46.0); HGB 10.6 g/dL (11.2-15.7); Immature Grans % 0.4; Lymphocytes % 17.4; MCH 26.8 pg (27.0-33.0); MCHC 29.9 % (32.0-36.0); MCV 89.9 fL (80-95); MPV 11.5 fL (8.0-11.0); Monocytes % 6.5; Nucleated RBC 0 %; Platelet Count 349 10^3/uL (130-400); RBC 3.95 10^6/uL (3.93-5.22); RDW 15.8 % (11.7-14.6); RDW-SD 51.7 fL; WBC 7.86 10^3/uL (4.4-10.8)
[2021-05-07 20:21] LABS: Anion Gap 4.7 mmol/L (3-11); BUN 21 mg/dL (7-18); CO2 31.3 mmol/L (21.0-32.0); CREATININE 1.7 mg/dL (0.55-1.02); Calcium 8.4 mg/dL (8.5-10.1); Chloride 109 mmol/L (98-107); Estimated GFR 28.92 (mL/min/1.73m2); Glucose 94 mg/dL (74-106); Potassium 4.8 mmol/L (3.5-5.1); Sodium 145 mmol/L (136-145); TSH 43.01 uIU/mL (0.36-3.74)
== END 2021-05-07 18:21 | disposition home or self-care (01) ==
LOC: LBN 18:20
PROVIDERS: Visit Provider Family Medicine
DX: E03.9 Hypothyroidism, unspecified (principal); R29.6 Repeated falls
CPT/HCPCS: 80048; 84443; 85025

== ENCOUNTER 2021-05-20 15:43 | Emergency (ER) | payer MEDICARE, MEDICAID, SELFPAY ==
[2021-05-20 15:45] VITALS: BP 140/71; PULSE 85; RESP 14; TEMP 36.4; O2SAT 96
--- NOTE | 2021-05-20 15:45 | DI.CT_ITS ---
Exam(s) CT HEAD CERVICAL SPINE WO EXAM: CT HEAD CERVICAL SPINE WO CLINICAL HISTORY: fall, report of pain. Dementia. TECHNIQUE: Imaging Protocol: Axial computed tomography images with coronal and sagittal reformatted images were created and reviewed COMPARISON: CT CT NECK WO from 04/27/2021 FINDINGS: Head CT Ventricles and Extra axial spaces: Normal in size and morphology for the patient's age. Hemorrhage: None. Cerebral parenchyma: Atrophy. White matter changes of small vessel disease. Midline shift: None. Brainstem/Cerebellum: Normal. Calvarium: Normal. Visualized Paranasal sinuses/Mastoids: Clear. Cervical Spine CT BONES: Prominent kyphosis. Stable minimal compression of T1. Remain vertebral body heights are main tained. No subluxation.. There is no evidence of acute fracture. Degenerative disc changes and facet degenerative changes are seen . SOFT TISSUES: No paraspinal hematoma. The airway appears intact. No pneumothorax is seen at the lung apices. IMPRESSION: Head CT: Stable atrophy and white matter changes. No acute abnormality. C-spine CT: Degenerative changes, no acute abnormality. RADIATION DOSE DELIVERED: 1,582.44mGy.cm Total DLP DATA REPOSITORY: All CT scans at this facility are submitted to the National Radiology Data Registry (NRDR) Dose Index Registry (DIR) with the [employer] ([employer]). RADIATION OPTIMIZATION: All CT scans at this facility use at least one of these dose optimization te chniques: automated exposure control; mA and/or kV adjustment per patient size (includes targeted exa ms where dose is matched to clinical indication); or iterative reconstruction.
--- NOTE | 2021-05-20 15:45 | DI.RAD_ITS ---
Exam(s) XR CHEST 1V IN DI DEPT EXAM: XR CHEST 1V IN DI DEPT CLINICAL HISTORY: fall, dementia, report of pain TECHNIQUE: 2D digital imaging was performed. COMPARISON: No exams were available for comparison FINDINGS: Extremely limited exam due to technique. Cardiomegaly. Fibrotic changes. Patient's arm overlies th e left lung base. Old left rib fractures. No pneumothorax. No gross area of consolidation. IMPRESSION: No acute pulmonary findings. Limited exam. DATA REPOSITORY: RADIATION DOSE DELIVERED:
--- NOTE | 2021-05-20 15:48 | W.ED.GENAD ---
Discharge Plan Disposition Patient Disposition: HOME Condition: Improving Discharge Details Clinical Impression: Contusion Primary Care Provider: [facility] ED Provider: Yan Benavidez Home Meds and New Rx's Prescriptions: Continued omeprazole magnesium [Prilosec OTC] 20 MG tablet,delayed release (DR/EC) 20 mg PO DAILY RF: 0 acetaminophen [Mapap Extra Strength] 500 MG tablet 500 mg PO TID RF: 0 acetaminophen 325 mg Tablet 650 mg PO Q6H PRN PRNRF: 0 citalopram 10 mg Tablet 10 mg PO DAILY RF: 0 levothyroxine 88 mcg Tablet 88 mcg PO DAILY RF: 0 magnesium hydroxide [Milk of Magnesia] 400 mg/5 mL Suspension 30 ml PO DAILY PRNRF: 0 bisacodyl [Dulcolax (bisacodyl)] 10 mg Suppository 10 mg [place] DAILY PRNRF: 0 gabapentin 100 mg Capsule 300 mg PO TID RF: 0 benztropine 1 mg Tablet 1 mg PO BID Qty: 0 RF: 0 Discharge Instructions Instructions: Contusion in Adults (ED) Additional Instructions: Your work-up in the emergency department included a CAT scan of the head and cervical spine as well as chest x-ray. There were no acute findings. You may have contusions and develop mild bruising. Given a popsicle in the ER which was tolerated well. Medical Decision Making 81-year-old female who lives at a local care facility. She was found on the floor in her room with an unwitnessed fall. She did complain of neck pain, but now it does seem to be improved. Patient was transported by EMS without difficulty. No evidence of traumatic injury and she is reported to have a baseline of dementia she is consistent with her exam. Patient is a noncontrast CT scan of the head and cervical spine and screening chest x-ray given the report of probable trauma. Chest x-ray without acute finding. CT scan with impressive kyphosis of the cervical spine, no acute injury or intracranial findings. Consistent with contusion. Patient is stable and appropriate for discharge back to care facility. HPI General Mode of arrival: EMS. Date/Time Provider Initiated Documentation: 05/20/21 15:47. Limitations to Documentation: other (Dementia). Information obtained by: EMS. History of Present Illness 81 year old F presents to the emergency department with the chief complaint of Unwitnessed fall at snf, concern for neck pain, described as mild, Patient started experiencing this unknown No relieving factors improve symptom(s), No exacerbating factors reported . Patient notes denies chest pain and seizure. Patient did receive the following treatments prior to arrival, none Related Data Home Medications Medication Instructions Recorded Confirmed omeprazole magnesium [Prilosec OTC] 20 mg PO DAILY 08/29/13 05/20/21 acetaminophen [Mapap Extra 500 mg PO TID 06/27/17 05/20/21 Strength] acetaminophen 650 mg PO Q6H PRN PRN 02/02/20 05/20/21 bisacodyl [Dulcolax (bisacodyl)] 10 mg [place] DAILY PRN 02/02/20 05/20/21 citalopram 10 mg PO DAILY 02/02/20 05/20/21 gabapentin 300 mg PO TID 02/02/20 05/20/21 levothyroxine 88 mcg PO DAILY 02/02/20 05/20/21 magnesium hydroxide [Milk of 30 ml PO DAILY PRN 02/02/20 05/20/21 Magnesia] benztropine 1 mg PO BID #0 tab 05/02/21 05/20/21 Previous Rx's Medication Instructions Recorded benztropine 1 mg PO BID #0 tab 05/02/21 Allergies Allergy/AdvReac Type Severity Reaction Status Date / Time codeine Allergy Unknown Unverified 05/20/21 15:51 lisinopril Allergy Unknown Unverified 05/20/21 15:51 NSAIDS (Non-Steroidal Allergy Unknown Unverified 05/20/21 15:51 Anti-Inflamma sertraline Allergy Unknown Unverified 05/20/21 15:51 simvastatin AdvReac Unknown Unverified 05/20/21 15:51 hydrocodone-acetominophen AdvReac Unknown Uncoded 05/20/21 15:51 General MANOJ: 3 Review of Systems Unobtainable due to mental condition PFSH All Active Problems (Updated 05/20/21 @ 17:00 by Yan Benavidez MD) Contusion (Acute) Dehydration (Acute) Hypomagnesemia (Acute) Dementia (Chronic) Weight loss (Acute) Dementia (Chronic) Sensorineural hearing loss, bilateral (Acute 05/09/17) Palliative care patient (Acute 09/20/16) FOLLOWED BY DR. DOBBERTIN Medical History Acute dehydration Acute kidney injury superimposed on chronic kidney disease Altered mental status Dementia DJD (degenerative joint disease) Elevated TSH Extrapyramidal and movement disorder Hypothyroidism Schizophrenia Tongue swelling Surgical History Arthroplasty (08/17/14) left hip Cholecystectomy 2004 Colectomy (11/28/01) CA, sigmoid colonoscopy (02/18/08) ? 06/01/14 colonoscopy (10/03/12) ? 06/01/14 colonoscopy (10/07/13) ? 06/01/14 egd with dilitation (05/18/11) ? 06/01/14 Lobectomy (04/06/09) left lower lobe thyroid nodule biopsy (10/07/13) Social History Smoking/Tobacco Use Status: Former Tobacco Use Smoking risk assessment performed?: Yes Alcohol Intake: never Drug use: Never Substance use type: does not use Household members: spouse Housing: house Do you feel safe in your relationship?: Yes Additional Social history: Resident @ [facility] [employer]- unable to answer questions d/t baseline dementia Exam Narrative Exam Narrative: GEN: awake, alert, well groomed, interactive. HEAD: Normocephalic, atraumatic ENT: Mucous membranes dry, oropharynx unremarkable, External ear exam unremarkable EYES: PERRL, EOMI NECK: Full ROM, no posterior step-off, deformity, tenderness CHEST/RESP: Nontender, clear to auscultation bilateral, no wheeze/rhonchi/rales CARDIOVASCULAR: RRR, no murmur, rub devon. 2+ Rad pulse bilateral ABDOMEN: Soft, nontender, no mass. +Bowel sounds Back: Nontender, no step-off or deformity, no ecchymosis. EXT: Full ROM, no edema, no rash Neuro: Grossly normal neurologic exam, conversant, interactive. Psych: Speech fluent
== END 2021-05-20 17:11 | disposition home or self-care (01) ==
PROVIDERS: Emergency Provider Emergency Medicine
DX: S20.214A Contusion of middle front wall of thorax, initial encounter (principal); M54.2 Cervicalgia; S09.8XXA Other specified injuries of head, initial encounter; W18.39XA Other fall on same level, initial encounter
CPT/HCPCS: 99284; 70450; 71045; 72125; 99283

== ENCOUNTER 2021-05-30 11:28 | Outpatient (CLI) | payer MEDICARE, MEDICAID, SELFPAY ==
--- NOTE | 2021-05-30 | DI.RAD_ITS ---
Exam(s) XR CHEST 2V PA LATERAL EXAM: XR CHEST 2V PA LATERAL CLINICAL HISTORY: ADVANCED DYSPHAGIA TECHNIQUE: 2D digital imaging was performed. COMPARISON: CR XR CHEST 2V PA LATERAL from 01/10/2019 CR XR CHEST 1V IN DI DEPT from 05/20/2021 FINDINGS: Lungs are suboptimally inflated on both views. There is stable mild elevation of the left diaphragm. The AP view is rotated. No of consolidation or effusion is seen. There is no evidence of pneumoth orax. IMPRESSION: Limited exam. No acute abnormality. DATA REPOSITORY: RADIATION DOSE DELIVERED:
--- NOTE | 2021-05-30 14:30 | DI.RAD_ITS ---
Exam(s) XR ABDOMEN FLAT PLATE EXAM: 2D digital imaging was performed. CLINICAL HISTORY: CONSTIPATION K59.00. COMPARISON: No exams were available for comparison TECHNIQUE: Supine views of the abdomen performed. FINDINGS: BOWEL GAS PATTERN: Nondistended. Gas is seen throughout small and large bowel . Moderate quantity o f stool, greatest in the rectum. CALCIFICATIONS: No radiopaque calcifications. OSSEOUS STRUCTURES: Left hip prosthesis. Severe degenerative changes of the right hip. Degenerative changes of the thoracic and lumbar spine. OTHER FINDINGS: Right upper quadrant surgical clips. Anastomotic sutures in the pelvic region. IMPRESSION: Calcification of the aorta which appears normal in diameter. 1. Nonobstructive bowel gas pattern. Moderate quantity of stool, greatest in the rectum. DATA REPOSITORY: RADIATION DOSE DELIVERED:
== END 2021-05-30 11:48 ==
PROVIDERS: Visit Provider Family Medicine
DX: K59.09 Other constipation (principal); R13.19 Other dysphagia; J98.6 Disorders of diaphragm; R05.8 Other specified cough; R09.89 Other specified symptoms and signs involving the circulatory and respiratory systems
CPT/HCPCS: 71046; 74018

== ENCOUNTER 2021-05-30 14:57 | Outpatient (REF) | payer MEDICARE, MEDICAID, SELFPAY ==
[2021-05-30 15:22] LABS: Bilirubin Small (Negative); Blood Negative (Negative); Glucose Negative (Negative); Ketones Negative (Negative); Leukocyte Esterase Trace (Negative); Nitrite Positive (Negative); pH >= 9.0 (5-8)
[2021-05-30 15:23] LABS: Clarity Sl Cloudy (Clear)
[2021-05-30 15:26] LABS: C & S Indicated? C&S Done As Ordered
[2021-05-30 16:10] LABS: Epithelial Cells Negative HPF (Negative); RBC Negative HPF (0-2); WBC 20-50 HPF (0-5)
[2021-05-30 16:11] LABS: Bacteria Many HPF (Negative)
[2021-05-30 16:12] LABS: Casts Negative LPF (Negative); Crystals Many Triple Phos HPF (Negative); Mucus Negative (Negative)
== END 2021-05-30 14:58 | disposition home or self-care (01) ==
LOC: LBN 14:57
PROVIDERS: Visit Provider Nurse Practitioner Family
DX: R82.998 Other abnormal findings in urine (principal)
CPT/HCPCS: 87077; 81003; 81015; 87086; 87186